=== PATIENT | male | born 1935 | race American Indian/Alaskan Native ===

== ENCOUNTER 2017-06-29 13:07 | Inpatient (IN) | payer MEDICARE ==
[2017-06-29 13:14] VITALS: BMI 24.3
[2017-06-29] MEDS ORDERED: Morphine 4 mg/ml ISec IVP STA (14:36)
--- NOTE | 2017-06-29 14:40 | ED PDOC ---
Arrival/HPI - General Chief Complaint: Back Pain Time Seen by Provider: 06/29/17 14:34 Historian: Patient, Spouse EM Caveat: Language Barrier, Other (right body pain) - History of Present Illness Narrative History of Present Illness (Text): 06/29/17 14:37 pt p/w + few days onset of atrumatic right sided body pain: right upper chest/ flank/right abd region pain; pt states he took aleve/tylenol with mild relief; pt states pain worsened today, pain has been waxing/waning over the last 3-4 days; no fever/sweats, no sob, no abd pain, no n/v, no numbness/tingling, no urinary/bowel changes, no fall/trauma/sick contact, no travel; pt denied rashes , pt denied other complaints; pt is here for further eval. PMD: Dr. 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 as per pt and , r eye cataract sx scheduled next month - Renal Hx Renal Disorder: No - Endocrine/Metabolic Hx Endocrine Disorders: No - Hematological/Oncological Hx Blood Transfusions: Yes Hx Blood Transfusion Reaction: No - Integumentary Hx Dermatological Disorder: No - Musculoskeletal/Rheumatological Hx Falls: Yes (past) - Gastrointestinal Hx Gastroesophageal Reflux: Yes - Genitourinary/Gynecological Hx Genitourinary Disorders: No - Psychiatric Hx Psychophysiologic Disorder: No Hx Substance Use: No - Anesthesia Hx Anesthesia Reactions: No Hx Malignant Hyperthermia: No Family/Social History - Physician Review Nursing Documentation Reviewed: Yes Family/Social History: Unknown Family HX Smoking Status: Never Smoked Hx Alcohol Use: No Hx Substance Use: No Allergies/Home Meds Allergies/Adverse Reactions: Allergies No Known Allergies Allergy (Unverified 11/26/12 01:02) Home Medications: Home Meds Medication Instructions Recorded Confirmed Brimonidine Tartrate 5 ml EACHEYE DAILY 02/04/16 02/04/16 Cyanocobalamin [Vitamin B12 1000 1 tab PO DAILY 02/04/16 02/08/16 mcg Tab] Dorzolamide HCl/Timolol Maleat 2 drop EACHEYE BID 02/04/16 02/04/16 [Dorzolamide Hydrochloride/Timolol Maleate 22] Enalapril Maleate [Vasotec] 1 tab PO DAILY 02/04/16 02/04/16 Esomeprazole Magnesium [Nexium] 40 mg PO DAILY 02/04/16 02/04/16 Ferrous Sulfate [Feosol] 1 tab PO DAILY 02/04/16 02/08/16 Folic Acid 1 mg PO DAILY 02/04/16 02/04/16 Latonoprost Opth Solution 1 drop EACHEYE HS 02/04/16 Valsartan/Hydrochlorothiazide 1 tab PO DAILY 02/04/16 02/04/16 [Valsartan-Hctz 160-12.5 mg Tab] amLODIPine [Norvasc] 1 tab PO DAILY 02/04/16 02/08/16 Review of Systems - Review of Systems Constitutional: Normal Eyes: Normal ENT: Normal Respiratory: Normal Cardiovascular: Chest Pain (right sided) Gastrointestinal: Abdominal Pain (right flank/sided) Genitourinary Male: Normal Musculoskeletal: Normal Skin: Normal Neurological: Normal Endocrine: Normal Hemo/Lymphatic: Normal Psychiatric: Normal Physical Exam Vital Signs Reviewed: Yes Vital Signs Temp Pulse Resp BP Pulse Ox 06/29/17 18:55 69 18 135/65 98 06/29/17 17:00 74 18 138/69 97 06/29/17 15:08 79 18 142/71 97 06/29/17 13:14 98.5 F 86 18 146/77 97 Temperature: Afebrile Blood Pressure: Normal Pulse: Regular Respiratory Rate: Normal Appearance: Positive for: Well-Appearing, Other (uncomfortable, resting in bed, alert/awake, GCS = 15, oriented x 3, mild distress due to pain) Pain Distress: Mild Mental Status: Positive for: Alert and Oriented X 3 - Systems Exam Head: Present: Atraumatic, Normocephalic Pupils: Present: PERRL Extroacular Muscles: Present: EOMI Conjunctiva: Present: Normal Ears: Present: Normal Mouth: Present: Moist Mucous Membranes Pharnyx: Present: Normal Nose (Internal): Present: Normal Inspection Neck: Present: Normal Range of Motion Respiratory/Chest: Present: Clear to Auscultation, Good Air Exchange. No: Respiratory Distress Cardiovascular: Present: Regular Rate and Rhythm, Normal S1, S2. No: Murmurs Abdomen: Present: Other (well nourished male, no focal tenderness, NO beebe's sign, no mcburney's point tenderness, no masses/rebound/guarding/rigidity, no obturator's sign) Back: Present: Normal Inspection Upper Extremity: Present: Normal Inspection, Normal ROM, NORMAL PULSES, Capillary Refill < 2s. No: Edema Lower Extremity: Present: Normal Inspection, NORMAL PULSES, Capillary Refill < 2 s. No: Edema, CALF TENDERNESS Neurological: Present: GCS=15, CN II-XII Intact, Speech Normal, Motor Func Grossly Intact Skin: Present: Warm, Normal Color Psychiatric: Present: Alert, Normal Concentration, Normal Affect, Normal Mood Medical Decision Making ED Course and Treatment: 06/29/17 14:42 right sided body pain x few days, no trauma A/P: right sided body pain - labs - iv - xray - ua - observe - supportive care 06/29/2017 16:46 Abdomen X-Ray IMPRESSION: No evidence of bowel obstruction. Mild retained feves predominantly in the right colon. No masses or abdnormal calcifications. Dictator: Romain Adams MD 06/29/2017 16:47 Chest X-ray IMPRESSION: Normal limited examinaton. Dictator: Romain Adams MD 06/29/17 20:03 pt currently felt slightly improved pt states he is comfortable pt is made aware of his medical results, i recommend patient for admission due to abnl lab results pt expressed understanding and agrees with admission paging Dr Saavedra, pt's PCP for admission 06/29/17 20:[address] Jc, made aware of pt's medical complaints, agrees with admission, would like Dr Johns for morning cards consult Reassessment Condition: Improving,but remains with symptoms - Lab Interpretations Lab Results: 06/29/17 16:40 Lab Results 06/29/17 16:40: Sodium 157 H*, Potassium 3.5 L, Chloride 116 H, Carbon Dioxide 30, Anion Gap 15, BUN 29 H, Creatinine 1.4, Est GFR ( Amer) 59, Est GFR ( Non-Af Amer) 49, Random Glucose 117 H, Calcium 8.9, Total Bilirubin 0.4, AST 40 , ALT 26, Alkaline Phosphatase 56, Troponin I < 0.01, Total Protein 6.4, Albumin 3.4, Globulin 3.0, Albumin/Globulin Ratio 1.1, Lipase 74 06/29/17 16:00: Urine Color Yellow, Urine Appearance Sl cloudy, Urine pH 8.5, Ur Specific [place] 1.010, Urine Protein 100 H, Urine Glucose (UA) Negative, Urine Ketones Negative, Urine Blood Negative, Urine Nitrate Negative, Urine Bilirubin Negative, Urine Urobilinogen 1.0 H, Ur Leukocyte Esterase Negative, Urine RBC Negative, Urine WBC 0 - 2, Ur Epithelial Cells None, Amorphous Sediment Few, Urine Bacteria Large, Urine Other Fiber I have reviewed the lab results: Yes (elevated NA) Interpretation: Abnormal lab values - RAD Interpretation Radiology Orders: 06/29/17 14:35 CHEST ONE VIEW [RAD] Stat ABDOMEN (FLAT PLATE) 1VIEW [RAD] Stat AXR FINDINGS: BOWEL: No bowel obstruction. Mild retained feces predominantly in the right colon. No masses or abnormal calcifications. BONES: Normal. OTHER FINDINGS: None. IMPRESSION: No evidence of bowel obstruction CXR: FINDINGS: LUNGS: Evaluation limited due to patient motion artifact. No infiltrate. PLEURA: No pneumothorax or pleural fluid seen. CARDIOVASCULAR: Normal. OSSEOUS STRUCTURES: No significant abnormalities. VISUALIZED UPPER ABDOMEN: Normal. OTHER FINDINGS: None. IMPRESSION: Normal limited examination. Professional Application Designer: Radiologist - EKG Interpretation EKG Interpretation (Text): 06/29/17 20:06 sinus rhythm at 85 bpm, normal axis, + pacs, diffuse low voltage, no st-t changes, ABNL EKG; unchanged compare with old ekg 01/201606/29/17 20:09 Interpreted by ED Physician: Yes Type: 12 lead EKG Comparison: Similar to previous EKG - Medication Orders Current Medication Orders: Aspirin (Aspirin Chewable) 81 mg PO STAT STA Stop: 06/29/17 20:39 Discontinued Medications Sodium Chloride (Sodium Chloride 0.9%) 500 mls @ 999 mls/hr IV .Q31M STA Stop: 06/29/17 20:34 Last Admin: 06/29/17 20:12 Dose: 999 mls/hr eMAR Start Stop Document 06/29/17 20:12 HI (Rec: 06/29/17 20:12 [id number]) Intravenous Solution Start Date 06/29/17 Start Time 20:12 Ketorolac Tromethamine (Toradol) 15 mg IVP STAT STA Stop: 06/29/17 14:37 Last Admin: 06/29/17 16:08 Dose: 15 mg MAR Pain Assessment Document 06/29/17 16:08 HI (Rec: 06/29/17 16:08 [id number]) Pain Reassessment Is this a pain reassessment? No Sleep Is patient sleeping during reassessment? No Presence of Pain Presence of Pain Yes IVP Administration Document 06/29/17 16:08 HI (Rec: 06/29/17 16:08 [id number]) Charges for Administration # of IVP Administrations 1 Morphine Sulfate (Morphine) 4 mg IVP STAT STA Stop: 06/29/17 14:37 Last Admin: 06/29/17 16:08 Dose: 4 mg MAR Pain Assessment Document 06/29/17 16:08 HI (Rec: 06/29/17 16:08 [place] [id number]) Pain Reassessment Is this a pain reassessment? No Sleep Is patient sleeping during reassessment? No Presence of Pain Presence of Pain Yes IVP Administration Document 06/29/17 16:08 HI (Rec: 06/29/17 16:08 [place] [id number]) Charges for Administration # of IVP Administrations 1 Disposition/Present on Arrival - Present on Arrival Any Indicators Present on Arrival: No History of DVT/PE: No History of Uncontrolled Diabetes: No Urinary Catheter: No History of Decub. Ulcer: No History Surgical Site Infection Following: None - Disposition Have Diagnosis and Disposition been Completed?: Yes Diagnosis: Right-sided chest pain, Acute hypernatremia, Right lateral abdominal pain Disposition: HOSPITALIZED Disposition Time: 20:09 Patient Plan: Admission, Observation Patient Problems: Current Active Problems Problem Status Onset Right-sided chest pain Acute Acute hypernatremia Acute Right lateral abdominal pain Acute Condition: FAIR Discharge Instructions (ExitCare): Chest Pain (ED) Referrals: Danielle Saavedra MD [Primary Care Provider] - Follow up with primary Forms: [employer] (Nepali)
[2017-06-29 16:17] LABS: PH,URINE 8.5 (4.7-8.0); URINE BILIRUBIN NEGATIVE (NEGATIVE); URINE BLOOD NEGATIVE (NEGATIVE); URINE GLUCOSE (UA) NEGATIVE (NEGATIVE); URINE LEUKOCYTE ESTERASE NEGATIVE Leu/uL (NEGATIVE); URINE NITRATE NEGATIVE (NEGATIVE); URINE PROTEIN 100 mg/dL (<30 mg/dL)
[2017-06-29 16:25] LABS: URINE APPEARANCE SL CLOUDY (CLEAR); URINE COLOR YELLOW (YELLOW)
[2017-06-29 16:27] LABS: URINE RBC NEGATIVE /hpf (0-2)
[2017-06-29 16:28] LABS: URINE AMORPHOUS SEDIMENT FEW; URINE BACTERIA LARGE (NEG); URINE WBC 0 - 2 /hpf (0-6)
--- NOTE | 2017-06-29 16:48 | RAD ---
PROCEDURE: CHEST RADIOGRAPH, 1 VIEW HISTORY: chest pain COMPARISON: None available. FINDINGS: LUNGS: Evaluation limited due to patient motion artifact. No infiltrate. PLEURA: No pneumothorax or pleural fluid seen. CARDIOVASCULAR: Normal. OSSEOUS STRUCTURES: No significant abnormalities. VISUALIZED UPPER ABDOMEN: Normal. OTHER FINDINGS: None. IMPRESSION: Normal limited examination.
--- NOTE | 2017-06-29 16:48 | RAD ---
HISTORY: right sided flank/diffuse abd intermittent pain COMPARISON: No prior. FINDINGS: BOWEL: No bowel obstruction. Mild retained feces predominantly in the right colon. No masses or abnormal calcifications. BONES: Normal. OTHER FINDINGS: None. IMPRESSION: No evidence of bowel obstruction
[2017-06-29 17:28] LABS: ALB/GLOB RATIO 1.1 (1.1-1.8); ALBUMIN 3.4 g/dL (3.0-4.8); ALT/SGPT 26 U/L (7-56); AST/SGOT 40 U/L (17-59); BLOOD UREA NITROGEN 29 mg/dL (7-21); CALCIUM 8.9 mg/dL (8.4-10.5); GFR AFRICAN-AMERICAN 59; GFR NON-AFRICAN AMERICAN 49; LIPASE 74 U/L (23-300)
[2017-06-29 17:41] LABS: TROPONIN I < 0.01 ng/mL
[2017-06-29] MEDS ORDERED: Sodium Chloride 0.9% 500 ML IV STA (20:04)
[2017-06-29 21:00] LABS: BASO % 1.1 % (0.0-3.0); EOS # 0.3 (0.0-0.7); GRAN # 6.24 (1.4-6.5); GRAN % 69.8 % (50.0-68.0); LYMPH # 1.7 (1.2-3.4); LYMPH % 18.8 % (22.0-35.0); MEAN CELL VOLUME 63.5 fl (80.0-105.0); MEAN CORPUSCULAR HGB CONC 23.7 g/dl (31.0-37.0); MONO # 0.7 (0.1-0.6); MONO % 7.3 % (1.0-6.0); RBC 2.66 10^6/uL (3.5-6.1); WHITE BLOOD COUNT 8.9 10^3/ul (4.5-11.0)
[2017-06-29 21:03] LABS: PLATELET COUNT 747 10^3/uL (120.0-450.0)
[2017-06-30] MEDS: Dorzolamide 2%/Timolol 0.5% 100 DROP/10 ML BOTTLE OD SCH ×4 (00:46→17:55)
[2017-06-30 01:08] LABS: HDL CHOLESTEROL 27 mg/dL (29-60)
[2017-06-30 01:10] LABS: IRON 11 ug/dL (45-180)
[2017-06-30 01:19] LABS: LDL CHOLESTEROL < 30 mg/dL (0-129)
[2017-06-30 01:20] LABS: TOTAL IRON BINDING CAPACITY 357 ug/dL (261-462)
[2017-06-30 01:39] LABS: % IRON SATURATION 3 % (20-55)
[2017-06-30 01:45] LABS: VENOUS BLOOD GAS BASE EXCESS 5.7 mmol/L (0.0-2.0); VENOUS BLOOD GAS PO2 66 mm/Hg (30-55); VENOUS BLOOD PH 7.39 (7.32-7.43)
--- NOTE | 2017-06-30 01:46 | CP.PCM.CON ---
<Harrison Rodríguez - Last Filed: 06/30/17 05:13> History of Present Illness - History of Present Illness History of Present Illness: Harrison Rodríguez DO PGY1 - ICU Consult Note CC: Consultation for symptomatic anemia HPI: 81 yo M with PMH of pernicious anemia, iron deficiency, internal hemorrhoids, PUD, and HTN presents to the ER complaining of right sided rib pain for the past three days. On admission, patient was noted to be severely anemic, with Hgb 4.0, with marked thrombocytosis, hypernatremia, hypokalemia. ICU consultation was requested with concerns for acute anemia 2/2 GIB. Patient reports black stools 2/2 iron supplementation, unchanged for the past few weeks. He denies BRBPR, hematochezia, hemoptysis, hematemesis, nausea, vomiting , diarrhea, constipation, abdominal pain (besides right sided rib pain), fever, or chills. Throughout encounter, patient repeatedly endorses hunger, requesting a diet. Remainder of 12 point ROS was negative. 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 as per pt and , r eye cataract sx scheduled next month - RENAL Hx Chronic Kidney Disease: No - ENDOCRINE/METABOLIC Hx Endocrine Disorders: No - HEMATOLOGICAL/ONCOLOGICAL Hx Blood Transfusions: Yes Hx Blood Transfusion Reaction: No - INTEGUMENTARY Hx Dermatological Problems: No - MUSCULOSKELETAL/RHEUMATOLOGICAL Hx Falls: Yes (past) - GASTROINTESTINAL Hx Gastroesophageal Reflux: Yes - GENITOURINARY/GYNECOLOGICAL Hx Genitourinary Disorders: No - PSYCHIATRIC Hx Psychophysiologic Disorder: No Hx Substance Use: No - SURGICAL HISTORY Hx Surgeries: No - ANESTHESIA Hx Anesthesia Reactions: No Hx Malignant Hyperthermia: No Meds Allergies/Adverse Reactions: Allergies Allergy/AdvReac Type Severity Reaction Status Date / Time No Known Allergies Allergy Unverified 11/26/12 01:02 - Medications Medications: Current Medications Amlodipine Besylate (Norvasc) 10 mg PO DAILY [facility] Cyanocobalamin (Vitamin B12 1000 Mcg Tab) 1,000 mcg PO DAILY [facility] Dorzolamide/Timolol (Cosopt 2%-0.5% Opht) 1 drop OD BID [facility] Last Admin: 06/30/17 00:46 Dose: 1 drop Ferrous Sulfate (Feosol) 324 mg PO DAILY [facility] Folic Acid (Folic Acid) 1 mg PO DAILY [facility] Hydrochlorothiazide (Microzide) 12.5 mg PO DAILY [facility] Latanoprost (Xalatan Opht) 0 ml OU HS [facility] Losartan Potassium (Cozaar) 100 mg PO DAILY [facility] Non-Formulary Medication (Brimonidine Tartrate [Brimonidine Tartrate]) 5 ml EACHEYE DAILY [facility] Pantoprazole Sodium (Protonix Ec Tab) 40 mg PO 0600 [facility] Physical Exam - Constitutional Appears: Non-toxic, In Acute Distress (mild), Chronically Ill - Head Exam Head Exam: ATRAUMATIC, NORMOCEPHALIC - Eye Exam Eye Exam: EOMI, Normal appearance, PERRL Additional comments: Conjunctival pallor - ENT Exam ENT Exam: Mucous Membranes Moist - Neck Exam Neck exam: Positive for: Normal Inspection - Respiratory Exam Respiratory Exam: Clear to Auscultation Bilateral, NORMAL BREATHING PATTERN - Cardiovascular Exam Cardiovascular Exam: RRR, +S1, +S2. absent: Tachycardia - GI/Abdominal Exam GI & Abdominal Exam: Normal Bowel Sounds, Soft. absent: Distended, Firm, Guarding, Organomegaly, Rebound, Rigid, Tenderness - Extremities Exam Extremities exam: Negative for: calf tenderness, pedal edema - Neurological Exam Neurological exam: Alert, CN II-XII Intact, Oriented x3 - Psychiatric Exam Psychiatric exam: Agitated, Normal Affect, Normal Mood - Skin Skin Exam: Dry, Intact, Normal Color Results - Vital Signs Recent Vital Signs: Last Vital Signs Temp 98.5 F 06/29/17 13:14 Pulse 85 06/30/17 00:56 Resp 19 06/30/17 00:56 BP 141/67 06/30/17 00:56 Pulse Ox 96 06/30/17 00:56 - Labs Result Diagrams: 06/29/17 20:50 06/29/17 16:40 Labs: Laboratory Results - last 24 hr 06/29/17 06/30/17 06/30/17 21:45 00:59 00:59 Iron 11 L Triglycerides 101 HDL Cholesterol 27 L Blood Type A POSITIVE Antibody Screen Negative Crossmatch See Detail BBK History Checked Patient has bt Assessment & Plan - Assessment and Plan (Free Text) Assessment: 81 yo M with PMH of pernicious anemia, iron deficiency, internal hemorrhoids, PUD, and HTN presents to the ER complaining of right sided rib pain for the past three days. Labs on admission show marked anemia, thrombocytosis, hypernatremia, hypokalemia. Patient declined ABG. VBG shows mild elevation in blood lactate. Anemia most likely chronic in nature, considering relative lack of symptoms, medical history, and current labs. Patient is hemodynamically stable, with no signs of active bleeding. Patient does not meet criteria for ICU admission. Recommend admission to telemetry. Agree with blood transfusion and GI evaluation. Recommend serial H&H, repeat CMP after resuscitation, and Iron, B12 , and folate supplementation. Patient seen, discussed, and reviewed with attending <William Mckeon Q - Last Filed: 06/30/17 06:12> Meds - Medications Medications: Current Medications Amlodipine Besylate (Norvasc) 10 mg PO DAILY [facility] Cyanocobalamin (Vitamin B12 1000 Mcg Tab) 1,000 mcg PO DAILY [facility] Dorzolamide/Timolol (Cosopt 2%-0.5% Opht) 1 drop OD BID [facility] Last Admin: 06/30/17 02:18 Dose: Not Given Ferrous Sulfate (Feosol) 324 mg PO DAILY [facility] Folic Acid (Folic Acid) 1 mg PO DAILY [facility] Hydrochlorothiazide (Microzide) 12.5 mg PO DAILY [facility] Latanoprost (Xalatan Opht) 0 ml OU HS [facility] Losartan Potassium (Cozaar) 100 mg PO DAILY [facility] Non-Formulary Medication (Brimonidine Tartrate [Brimonidine Tartrate]) 5 ml EACHEYE DAILY [facility] Pantoprazole Sodium (Protonix Ec Tab) 40 mg PO 0600 [facility] Last Admin: 06/30/17 05:19 Dose: 40 mg Results - Vital Signs Recent Vital Signs: Last Vital Signs Temp 98.4 F 06/30/17 06:05 Pulse 70 06/30/17 06:05 Resp 18 06/30/17 06:05 BP 132/72 06/30/17 06:05 Pulse Ox 98 06/30/17 05:26 - Labs Result Diagrams: 06/29/17 20:50 06/29/17 16:40 Labs: Laboratory Results - last 24 hr 06/29/17 06/30/17 06/30/17 21:45 00:59 00:59 pO2 66 H VBG pH 7.39 VBG pCO2 53.0 VBG HCO3 32.1 H VBG Total CO2 33.7 H VBG O2 Sat (Calc) 95.7 H VBG Base Excess 5.7 H VBG Potassium 3.2 L Sodium 158.0 H Chloride 122.0 H Glucose 117 H Lactate 2.4 H FiO2 21.0 Iron TIBC % Saturation Triglycerides 101 Cholesterol 59 L LDL Cholesterol Direct < 30 HDL Cholesterol 27 L Venous Blood Potassium 3.2 L Blood Type A POSITIVE Antibody Screen Negative Crossmatch See Detail BBK History Checked Patient has bt 06/30/17 00:59 pO2 VBG pH VBG pCO2 VBG HCO3 VBG Total CO2 VBG O2 Sat (Calc) VBG Base Excess VBG Potassium Sodium Chloride Glucose Lactate FiO2 Iron 11 L TIBC 357 % Saturation 3 L Triglycerides Cholesterol LDL Cholesterol Direct HDL Cholesterol Venous Blood Potassium Blood Type Antibody Screen Crossmatch BBK History Checked Attending/Attestation - Attestation I have personally seen and examined this patient.: Yes I have fully participated in the care of the patient.: Yes I have reviewed all pertinent clinical information: Yes Notes (Text): 06/30/17 06:08 I agree with the above mentioned note and exam by the resident with the addition of the followin81 y/o Hatian creole speaking male with a PMHx as described above presented to the ED due to ongoing right sided mid-axillary/abdominal pain. He denied any complaints of shortness of breath, chest discomfort, palpitations, syncope or near syncope. Patient has been admitted to the hospital two times previously in the last 2 years showing very low hgb levels (6.5 and 4.0 on separate occasions). He has had an endoscopy showing gastric ulcers without bleeding and a colonoscopy which showed internal hemorrhoids and a polyp that was biopsied and found to be a tubular adenoma. Patient also has tested positive for intrinsic factor antibody indicating a history of pernicious anemia. He may be admitted to the telemetry floor and does not require aggressive resuscitation or ICU level monitoring at this time. Case discussed with Dr. Anderson in the ED
[2017-06-30] MEDS: Pantoprazole 40 mg EC Tab PO SCH (05:19)
[2017-06-30] MEDS ORDERED: BRIMONIDINE TARTRATE EACHEYE SCH (10:00)
--- NOTE | 2017-06-30 10:24 | CARD ---
APPROVED REPORT EKG Measurement Heart [id number] ME [id number] <Conclusion> Sinus rhythm with short ME with occasional premature ventricular complexes Nonspecific ST abnormality Abnormal ECG
--- NOTE | 2017-06-30 10:44 | CP.PCM.HP ---
<Josephine Julian - Last Filed: 06/30/17 10:37> History of Present Illness - History of Present Illness History of Present Illness: 81 yr male w/ history of Pernicious anemia, iron deficiency, internal hemorrhoids, PUD, HTN, cataracts, glaucoma, and Legally blind presents to the ED with his after R sided chest pain and R sided abd/flank pain. He reported the pain was waxing/waning over the last 3-4 days. He states that " this time last year, I was here [at [facility]] getting blood." Pt has periods of altered mental status and speech that is indiscernible due to language barrier, his first language is Creole. He denies any SOB, N/V, diarrhea, constipation, fever, chills, urinary changes or distress. Present on Admission - Present on Admission Any Indicators Present on Admission: No History of DVT/PE: No History of Uncontrolled Diabetes: No Urinary Catheter: No Decubitus Ulcer Present: No Review of Systems - Review of Systems Systems not reviewed;Unavailable: Altered Mental Status, Language Barrier - Constitutional Constitutional: As Per HPI - EENT Eyes: As Per HPI - Cardiovascular Cardiovascular: As Per HPI - Respiratory Respiratory: As Per HPI - Gastrointestinal Gastrointestinal: As Per HPI - Genitourinary Genitourinary: As Per HPI - Musculoskeletal Musculoskeletal: As Per HPI - Integumentary Integumentary: As Per HPI - Neurological Neurological: As Per HPI - Psychiatric Psychiatric: As Per HPI - Endocrine Endocrine: As Per HPI - Hematologic/Lymphatic Hematologic: As Per HPI 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 cataracts as per pt and , r eye cataract sx scheduled next month - RENAL Hx Chronic Kidney Disease: No - ENDOCRINE/METABOLIC Hx Endocrine Disorders: No - HEMATOLOGICAL/ONCOLOGICAL Hx Blood Transfusions: Yes Hx Blood Transfusion Reaction: No - INTEGUMENTARY Hx Dermatological Problems: No - MUSCULOSKELETAL/RHEUMATOLOGICAL Hx Falls: Yes (past) - GASTROINTESTINAL Hx Gastroesophageal Reflux: Yes Hx Hemorrhoids: Yes (INTERNAL HEMORRHOIDS) Hx Ulcer: Yes (PUD) - GENITOURINARY/GYNECOLOGICAL Hx Genitourinary Disorders: No - PSYCHIATRIC Hx Psychophysiologic Disorder: No Hx Substance Use: No - SURGICAL HISTORY Hx Surgeries: No - ANESTHESIA Hx Anesthesia Reactions: No Hx Malignant Hyperthermia: No Meds Allergies/Adverse Reactions: Allergies Allergy/AdvReac Type Severity Reaction Status Date / Time No Known Allergies Allergy Unverified 11/26/12 01:02 Physical Exam - Constitutional Appears: No Acute Distress - Head Exam Head Exam: ATRAUMATIC, NORMAL INSPECTION, NORMOCEPHALIC - Eye Exam Eye Exam: EOMI, Normal appearance, PERRL - ENT Exam ENT Exam: Mucous Membranes Dry - Neck Exam Neck exam: Positive for: Normal Inspection - Respiratory Exam Respiratory Exam: Clear to Auscultation Bilateral, NORMAL BREATHING PATTERN - Cardiovascular Exam Cardiovascular Exam: REGULAR RHYTHM, +S1, +S2 - GI/Abdominal Exam GI & Abdominal Exam: Normal Bowel Sounds, Soft. absent: Tenderness - Back Exam Back exam: NORMAL INSPECTION - Neurological Exam Neurological exam: Alert, Altered - Psychiatric Exam Psychiatric exam: Normal Affect, Normal Mood - Skin Skin Exam: Dry, Intact, Normal Color, Warm Results - Vital Signs Recent Vital Signs: Last Vital Signs Temp 98.8 F 06/30/17 09:35 Pulse 94 H 06/30/17 09:35 Resp 18 06/30/17 09:35 BP 160/71 H 06/30/17 09:35 Pulse Ox 98 06/30/17 05:26 - Labs Result Diagrams: 06/29/17 20:50 06/29/17 16:40 Labs: Laboratory Results - last 24 hr 06/29/17 06/30/17 06/30/17 21:45 00:59 00:59 pO2 66 H VBG pH 7.39 VBG pCO2 53.0 VBG HCO3 32.1 H VBG Total CO2 33.7 H VBG O2 Sat (Calc) 95.7 H VBG Base Excess 5.7 H VBG Potassium 3.2 L Sodium 158.0 H Chloride 122.0 H Glucose 117 H Lactate 2.4 H FiO2 21.0 Iron TIBC % Saturation Triglycerides 101 Cholesterol 59 L LDL Cholesterol Direct < 30 HDL Cholesterol 27 L Venous Blood Potassium 3.2 L Blood Type A POSITIVE Antibody Screen Negative Crossmatch See Detail BBK History Checked Patient has bt 06/30/17 00:59 pO2 VBG pH VBG pCO2 VBG HCO3 VBG Total CO2 VBG O2 Sat (Calc) VBG Base Excess VBG Potassium Sodium Chloride Glucose Lactate FiO2 Iron 11 L TIBC 357 % Saturation 3 L Triglycerides Cholesterol LDL Cholesterol Direct HDL Cholesterol Venous Blood Potassium Blood Type Antibody Screen Crossmatch BBK History Checked - Impressions Impression: ADMIT TO TELEMETRY Assessment & Plan (1) Severe anemia Status: Acute (2) Hypokalemia Status: Acute (3) Dehydration Status: Acute (4) Microalbuminuria Status: Acute (5) Hyperglycemia Status: Acute (6) Thrombocytosis Status: Acute (7) Acute hypernatremia Status: Acute (8) Right lateral abdominal pain Status: Acute (9) Right-sided chest pain Status: Acute (10) HTN (hypertension) Status: Chronic - Assessment and Plan (Free Text) Plan: Patient in Telemetry receiving blood transfusion. 1:1 sitter present. GI prophlyaxis, VTE prophlyaxis, Falls precautions, Bleeding precautions. Consulted: GI = Dr. Jacobo Cardio = Dr. Johns Psych = Dr. Mccormack Reviewed: Abd XRay = (-) NEG bowel obstruction. Mild retained feces predominantly in the right colon. No masses or abnormal calcifications CXR = (-) WNL ECG = (+) NSR, PAC, diffuse low voltage, no st-t changes, ABNL; unchanged compared with old ekg 01/2016 - Date & Time Date: 06/30/17 Time: 10:00 Decision To Admit - Pt Status Changed To: Hospital Disposition Of: Inpatient Admission - Admit Certification Admit to Inpatient:: After my assessment, the patient will require hospitalization for at least two midnights. This is because of the severity of symptoms shown, intensity of services needed, and/or the medical risk in this patient being treated as an outpatient. - . Bed Request Type: Telemetry <Danielle Saavedra - Last Filed: 06/30/17 14:16> Results - Vital Signs Recent Vital Signs: Last Vital Signs Temp 98.8 F 06/30/17 09:35 Pulse 94 H 06/30/17 09:35 Resp 18 06/30/17 09:35 BP 140/71 06/30/17 13:03 Pulse Ox 98 06/30/17 05:26 - Labs Result Diagrams: 06/29/17 20:50 06/29/17 16:40 Labs: Laboratory Results - last 24 hr 06/29/17 06/30/17 06/30/17 21:45 00:59 00:59 pO2 66 H VBG pH 7.39 VBG pCO2 53.0 VBG HCO3 32.1 H VBG Total CO2 33.7 H VBG O2 Sat (Calc) 95.7 H VBG Base Excess 5.7 H VBG Potassium 3.2 L Sodium 158.0 H Chloride 122.0 H Glucose 117 H Lactate 2.4 H FiO2 21.0 Hemoglobin A1c Iron TIBC % Saturation Triglycerides 101 Cholesterol 59 L LDL Cholesterol Direct < 30 HDL Cholesterol 27 L Venous Blood Potassium 3.2 L Blood Type A POSITIVE Antibody Screen Negative Crossmatch See Detail BBK History Checked Patient has bt 06/30/17 06/30/17 06/30/17 00:59 00:59 11:30 pO2 41 VBG pH 7.39 VBG pCO2 48.0 VBG HCO3 29.1 H VBG Total CO2 30.6 H VBG O2 Sat (Calc) 78.1 H VBG Base Excess 3.3 H VBG Potassium 3.6 Sodium 157.0 H Chloride 123.0 H Glucose 103 Lactate 2.2 H FiO2 21.0 Hemoglobin A1c 5.8 Iron 11 L TIBC 357 % Saturation 3 L Triglycerides Cholesterol LDL Cholesterol Direct HDL Cholesterol Venous Blood Potassium 3.6 Blood Type Antibody Screen Crossmatch BBK History Checked Assessment & Plan - Assessment and Plan (Free Text) Plan: i know this pt very well , very non compliant, h/o anemia , ab. colonoscopy , never f/u on that , even d/d with pt and family , now came with severe symptomatic anemia , admitted , gave prbc . gi , demetrioult , agreed all above . will f/u with h/h . planed to send pt to the unit , but intensives refused , we will cont , present treatment , chart . labs and meds noted
[2017-06-30 11:38] LABS: VENOUS BLOOD GAS BASE EXCESS 3.3 mmol/L (0.0-2.0); VENOUS BLOOD GAS PO2 41 mm/Hg (30-55); VENOUS BLOOD PH 7.39 (7.32-7.43)
--- NOTE | 2017-06-30 12:31 | CP.PCM.CON ---
<Simona Aj - Last Filed: 06/30/17 14:14> History of Present Illness - History of Present Illness History of Present Illness: Seen and examined at the bedside earlier today, the chart reviewed. Request for GI consult is for severe anemia. HPI: This is an 81-year-old male with a past medical history of iron deficiency anemia, peptic ulcer disease, hypertension, cataract, cough,, legally blind came to the emergency room with complaints of right upper quadrant/flank pain. The patient on admission was found to have a hemoglobin of 4.0. Currently receiving second unit of packed RBC. The patient denies any hematemesis, shortness of breath, did have some right-sided chest pain. Patient denies melena or bright red blood per rectum patient is found to have dark stools. Patient endorses that he is on iron supplements. The patient had an abdominal x -ray which was negative for bowel obstruction. His last endoscopy was 02/05/16, found to have erosions in the gastric antrum and stigmata of blood noted, found to have healed ulcer. The patient did have initial endoscopy on July/2015 found to have multiple ulcers. Last colonoscopy was 02/2016 found to have rectal polyp, diverticulosis and internal hemorrhoids. A review of medication the patient is on Nexium 40 mg. The patient currently denies abdominal discomfort reports that this has improved. Denies use of NSAIDs, dyspepsia. Past medical history: Hypertension, cataracts, glaucoma, legally blind, iron deficiency anemia, internal hemorrhoids, colon polyps, peptic ulcer disease, diverticulosis Surgical history: Denies Family history: Noncontributory this time Allergies: No known drug allergies Medications: Reviewed as per MAR Social history: Denies EtOH, tobacco use or drugs ROS: Systems reviewed with positive findings see HPI. 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 cataracts as per pt and , r eye cataract sx scheduled next month - RENAL Hx Chronic Kidney Disease: No - ENDOCRINE/METABOLIC Hx Endocrine Disorders: No - HEMATOLOGICAL/ONCOLOGICAL Hx Blood Transfusions: Yes Hx Blood Transfusion Reaction: No - INTEGUMENTARY Hx Dermatological Problems: No - MUSCULOSKELETAL/RHEUMATOLOGICAL Hx Falls: Yes (past) - GASTROINTESTINAL Hx Gastroesophageal Reflux: Yes Hx Hemorrhoids: Yes (INTERNAL HEMORRHOIDS) Hx Ulcer: Yes (PUD) - GENITOURINARY/GYNECOLOGICAL Hx Genitourinary Disorders: No - PSYCHIATRIC Hx Psychophysiologic Disorder: No Hx Substance Use: No - SURGICAL HISTORY Hx Surgeries: No - ANESTHESIA Hx Anesthesia Reactions: No Hx Malignant Hyperthermia: No Meds Allergies/Adverse Reactions: Allergies Allergy/AdvReac Type Severity Reaction Status Date / Time No Known Allergies Allergy Unverified 11/26/12 01:02 - Medications Medications: Current Medications Amlodipine Besylate (Norvasc) 10 mg PO DAILY [facility] Cyanocobalamin (Vitamin B12 1000 Mcg Tab) 1,000 mcg PO DAILY [facility] Dorzolamide/Timolol (Cosopt 2%-0.5% Opht) 1 drop OD BID [facility] Last Admin: 06/30/17 02:18 Dose: Not Given Ferrous Sulfate (Feosol) 324 mg PO DAILY [facility] Folic Acid (Folic Acid) 1 mg PO DAILY [facility] Hydrochlorothiazide (Microzide) 12.5 mg PO DAILY [facility] Latanoprost (Xalatan Opht) 0 ml OU HS [facility] Losartan Potassium (Cozaar) 100 mg PO DAILY [facility] Non-Formulary Medication (Brimonidine Tartrate [Brimonidine Tartrate]) 5 ml EACHEYE DAILY [facility] Pantoprazole Sodium (Protonix Ec Tab) 40 mg PO 0600 [facility] Last Admin: 06/30/17 05:19 Dose: 40 mg Physical Exam - Constitutional Appears: No Acute Distress - Head Exam Head Exam: NORMOCEPHALIC - Eye Exam Eye Exam: Normal appearance. absent: Scleral icterus - ENT Exam ENT Exam: Mucous Membranes Moist - Respiratory Exam Respiratory Exam: NORMAL BREATHING PATTERN. absent: Respiratory Distress - Cardiovascular Exam Cardiovascular Exam: +S1, +S2 - GI/Abdominal Exam GI & Abdominal Exam: Normal Bowel Sounds, Soft, Tenderness (mild upper right- sided tenderness). absent: Distended, Guarding, Organomegaly, Rebound - Extremities Exam Extremities exam: Positive for: pedal pulses present. Negative for: calf tenderness, pedal edema - Neurological Exam Neurological exam: Alert, Oriented x3 - Skin Skin Exam: Dry, Warm Results - Vital Signs Recent Vital Signs: Last Vital Signs Temp 98.8 F 06/30/17 09:35 Pulse 94 H 06/30/17 09:35 Resp 18 06/30/17 09:35 BP 160/71 H 06/30/17 09:35 Pulse Ox 98 06/30/17 05:26 - Labs Result Diagrams: 06/29/17 20:50 06/29/17 16:40 Labs: Laboratory Results - last 24 hr 06/29/17 06/30/17 06/30/17 21:45 00:59 00:59 pO2 66 H VBG pH 7.39 VBG pCO2 53.0 VBG HCO3 32.1 H VBG Total CO2 33.7 H VBG O2 Sat (Calc) 95.7 H VBG Base Excess 5.7 H VBG Potassium 3.2 L Sodium 158.0 H Chloride 122.0 H Glucose 117 H Lactate 2.4 H FiO2 21.0 Iron TIBC % Saturation Triglycerides 101 Cholesterol 59 L LDL Cholesterol Direct < 30 HDL Cholesterol 27 L Venous Blood Potassium 3.2 L Blood Type A POSITIVE Antibody Screen Negative Crossmatch See Detail BBK History Checked Patient has bt 06/30/17 06/30/17 00:59 11:30 pO2 41 VBG pH 7.39 VBG pCO2 48.0 VBG HCO3 29.1 H VBG Total CO2 30.6 H VBG O2 Sat (Calc) 78.1 H VBG Base Excess 3.3 H VBG Potassium 3.6 Sodium 157.0 H Chloride 123.0 H Glucose 103 Lactate 2.2 H FiO2 21.0 Iron 11 L TIBC 357 % Saturation 3 L Triglycerides Cholesterol LDL Cholesterol Direct HDL Cholesterol Venous Blood Potassium 3.6 Blood Type Antibody Screen Crossmatch BBK History Checked Assessment & Plan - Assessment and Plan (Free Text) Assessment: Assessment: Severe anemia, rule out peptic ulcer disease, angiodysplasia Right-sided upper/chest pain History of peptic ulcer disease Iron deficiency anemia Cataract/Glaucoma/legally blind Hypertension History of colon polyp Diverticulosis Hypernatremia Plan: monitor H&H and for overt GI bleed Recheck CBC post transfusion Continue PPI change diet to clear liquid ct scan of abdomen and pelvis with oral contrast On B12 and iron supplements, B12 and folate pending Pending echo as per cardiology Consider endoscopic evaluation when optimal, will follow closely Thank you for this consult and for allowing us to participate in your patient's care, further recommendations based upon clinical course. Seen and discussed with Dr. Jacobo. <Cl Jacobo V - Last Filed: 07/05/17 13:33> Meds - Medications Medications: Current Medications Amlodipine Besylate (Norvasc) 10 mg PO DAILY [facility] Last Admin: 06/30/17 13:03 Dose: 10 mg Aspirin (Aspirin) 325 mg PO DAILY [facility] Last Admin: 06/30/17 17:49 Dose: 325 mg Cyanocobalamin (Vitamin B12 1000 Mcg Tab) 1,000 mcg PO DAILY [facility] Last Admin: 06/30/17 13:02 Dose: 1,000 mcg Dorzolamide/Timolol (Cosopt 2%-0.5% Opht) 1 drop OD BID [facility] Last Admin: 06/30/17 17:55 Dose: 1 drop Ferrous Sulfate (Feosol) 324 mg PO DAILY [facility] Last Admin: 06/30/17 13:02 Dose: 324 mg Folic Acid (Folic Acid) 1 mg PO DAILY [facility] Last Admin: 06/30/17 13:02 Dose: 1 mg Hydrochlorothiazide (Microzide) 12.5 mg PO DAILY [facility] Last Admin: 06/30/17 13:02 Dose: 12.5 mg Dextrose/Sodium Chloride (Dextrose 5%/0.9% Ns 1000 Ml) 1,000 mls @ 80 mls/hr IV .[id number] [facility] Last Admin: 06/30/17 20:22 Dose: 80 mls/hr Latanoprost (Xalatan Opht) 0 ml OU HS [facility] Last Admin: 06/30/17 22:22 Dose: 2.5 ml Losartan Potassium (Cozaar) 100 mg PO DAILY [facility] Last Admin: 06/30/17 13:02 Dose: 100 mg Non-Formulary Medication (Brimonidine Tartrate [Brimonidine Tartrate]) 5 ml EACHEYE DAILY [facility] Pantoprazole Sodium (Protonix Ec Tab) 40 mg PO 0600 [facility] Last Admin: 06/30/17 05:19 Dose: 40 mg Results - Vital Signs Recent Vital Signs: Last Vital Signs Temp 98.8 F 06/30/17 09:35 Pulse 81 06/30/17 18:00 Resp 18 06/30/17 09:35 BP 140/71 06/30/17 13:03 Pulse Ox 98 06/30/17 05:26 - Labs Result Diagrams: 07/04/17 07:00 07/04/17 07:00 Labs: Laboratory Results - last 24 hr 06/29/17 06/30/17 06/30/17 21:45 00:59 00:59 pO2 66 H VBG pH 7.39 VBG pCO2 53.0 VBG HCO3 32.1 H VBG Total CO2 33.7 H VBG O2 Sat (Calc) 95.7 H VBG Base Excess 5.7 H VBG Potassium 3.2 L Sodium 158.0 H Chloride 122.0 H Glucose 117 H Lactate 2.4 H FiO2 21.0 Potassium Carbon Dioxide Anion Gap BUN Creatinine Est GFR ( Amer) Est GFR (Non-Af Amer) Random Glucose Hemoglobin A1c Calcium Iron TIBC % Saturation Triglycerides 101 Cholesterol 59 L LDL Cholesterol Direct < 30 HDL Cholesterol 27 L Vitamin B12 677 Folate 8.8 Venous Blood Potassium 3.2 L Blood Type A POSITIVE Antibody Screen Negative Crossmatch See Detail BBK History Checked Patient has bt 06/30/17 06/30/17 06/30/17 00:59 00:59 11:30 pO2 41 VBG pH 7.39 VBG pCO2 48.0 VBG HCO3 29.1 H VBG Total CO2 30.6 H VBG O2 Sat (Calc) 78.1 H VBG Base Excess 3.3 H VBG Potassium 3.6 Sodium 157.0 H Chloride 123.0 H Glucose 103 Lactate 2.2 H FiO2 21.0 Potassium Carbon Dioxide Anion Gap BUN Creatinine Est GFR ( Amer) Est GFR (Non-Af Amer) Random Glucose Hemoglobin A1c 5.8 Calcium Iron 11 L TIBC 357 % Saturation 3 L Triglycerides Cholesterol LDL Cholesterol Direct HDL Cholesterol Vitamin B12 Folate Venous Blood Potassium 3.6 Blood Type Antibody Screen Crossmatch BBK History Checked 06/30/17 14:45 pO2 VBG pH VBG pCO2 VBG HCO3 VBG Total CO2 VBG O2 Sat (Calc) VBG Base Excess VBG Potassium Sodium 156 H* Chloride 119 H Glucose Lactate FiO2 Potassium 3.7 Carbon Dioxide 25 Anion Gap 15 BUN 26 H Creatinine 1.3 Est GFR ( Amer) > 60 Est GFR (Non-Af Amer) 53 Random Glucose 108 Hemoglobin A1c Calcium 9.2 Iron TIBC % Saturation Triglycerides Cholesterol LDL Cholesterol Direct HDL Cholesterol Vitamin B12 Folate Venous Blood Potassium Blood Type Antibody Screen Crossmatch BBK History Checked Attending/Attestation - Attestation I have personally seen and examined this patient.: Yes I have fully participated in the care of the patient.: Yes I have reviewed all pertinent clinical information: Yes Notes (Text): This is an addendum to GI consult report dictated by Simona Aj APN.The patient was seen and examined earlier. Medical records, lab studies, imagings were reviewed. Last 24 hours events reviewed. Agreed with the above treatment plan as outlined in Simona Aj APN's notes the with the addition of the following I did speak with patient's patient's granddaughter, and also patient's daughter was in [place]. Last time we saw the patient in the hospital was more than a year ago. Multiple efforts were made to reach up to the family. The primary physician was also informed the patient and his family the diagnosis of rectal polypoid lesion which requires surgical intervention. Patient did not follow up on that. History of ulcer disease In the past. Patient had esophageal ulcers and gastric ulcers. Repeat endoscopy showed healed ulcers and gastric erosions.patient is admitted with a severe anemia with a hemoglobin of 4.5. Denies any bright red blood per rectum or melena 06/30/17 23:19 07/05/17 13:32
[2017-06-30] MEDS ORDERED: Barium Sulfate Susp 2.1% w/v, 2.0% w/w 450 mL Bottle PO ONE (14:12)
[2017-06-30 15:41] LABS: FOLATE 8.8 ng/mL
[2017-06-30 16:04] LABS: BLOOD UREA NITROGEN 26 mg/dL (7-21); CALCIUM 9.2 mg/dL (8.4-10.5); GFR AFRICAN-AMERICAN > 60; GFR NON-AFRICAN AMERICAN 53
--- NOTE | 2017-06-30 16:40 | US ---
PROCEDURE: Bilateral carotid artery duplex ultrasound HISTORY: Carotid stenosis TIA PHYSICIAN(S): Romain Qureshi MD. TECHNIQUE: Duplex sonography and color-flow Doppler were used to evaluate the carotid bifurcations and limited segments of the vertebral arteries bilaterally. FINDINGS: There is mild smooth heterogeneous plaque noted at the carotid bifurcations bilaterally. The peak systolic velocity in the proximal right internal carotid artery is 74 cm/sec. This corresponds to a 20 to 39% proximal right ICA stenosis. Normal systolic velocities are noted in the proximal right external carotid artery. There is antegrade flow in the right vertebral artery. The peak systolic velocity in the proximal left internal carotid artery is 102 cm/sec. This corresponds to a 20 to 39% proximal left ICA stenosis. Normal systolic velocities are noted in the proximal left external carotid artery. There is antegrade flow in the left vertebral artery. IMPRESSION: 1. Bilateral 20-39% proximal ICA stenoses. 2. Antegrade flow in both vertebral arteries.
--- NOTE | 2017-06-30 19:07 | CARD ---
APPROVED REPORT EXAM: Two-dimensional and M-mode echocardiogram with Doppler and color Doppler. INDICATION Chest Pain 2D DIMENSIONS Left Atrium (2D)4.2 (1.6-4.0cm)IVSd1.1 (0.7-1.1cm) LVDd5.0 (3.9-5.9cm)PWd1.2 (0.7-1.1cm) LVDs3.5 (2.5-4.0cm)FS (%) 30.0 % LVEF (%)56.7 (>50%) M-Mode DIMENSIONS Aortic Root3.50 (2.2-3.7cm)Aortic Cusp Exc.1.60 (1.5-2.0cm) Aortic Valve AoV Peak Qvoxomsa671.0cm/[place] Peak GR.12mmHg Mitral Valve MV E Vdszkhvd38.5cm/sMV A Daeuuski148.0cm/sE/A ratio0.7 TDI Lateral E' Peak V10.00cm/sMedial E' Peak V8.87cm/sE/Lateral E'7.7 E/Medial E'8.6 Pulmonary Valve PV Peak Xxssihvd33.0cm/sPV Peak Grad.2mmHg Tricuspid Valve TR Peak [id number]/sRAP [id number] Peak Gr.78mmHg [id number] LEFT VENTRICLE The left ventricle is normal size. There is borderline to mild concentric left ventricular hypertrophy. The left ventricular function is normal.EF-55-60% There is normal LV segmental wall motion. Transmitral Doppler flow pattern is Grade III-reversible restrictive diastolic dysfunction. No left ventricle thrombus noted on this study. There is no ventricular septal defect visualized. There is no left ventricular aneurysm. There is no mass noted in the left ventricle. RIGHT VENTRICLE The right ventricle is mildly to moderately dilated. The right ventricle is mildly to moderately hypertrophied. Systolic function of RV is mildly to moderately reduced. ATRIA The left atrium is mildly dilated. The right atrium is moderately dilated. The interatrial septum is intact with no evidence for an atrial septal defect. AORTIC VALVE The aortic valve is calcified but opens well. The aortic valve is mildly to moderately sclerotic. There is trace aortic regurgitation. There is no aortic valvular stenosis. There is no aortic valvular vegetation. MITRAL VALVE The mitral valve is thickened but opens well. Mitral regurgitation is mild to moderate. There is no mitral valve stenosis. There is no evidence of mitral valve prolapse. TRICUSPID VALVE The tricuspid valve leaflets are thickened , but open well. There is severe tricuspid regurgitation.RVSP-88 mmof hg. There is severe pulmonary hypertension. There is no tricuspid valve stenosis. There is no tricuspid valve prolapse or vegetation. PULMONIC VALVE The pulmonary valve is normal in structure. There is mild pulmonic valvular regurgitation. There is no pulmonic valvular stenosis. GREAT VESSELS The aortic root is normal in size. The ascending aorta is normal in size. The pulmonary artery is normal. The IVC is dilated. PERICARDIAL EFFUSION There is no pleural effusion. There is no pericardial effusion. <Conclusion> The left ventricle is normal size. There is borderline to mild concentric left ventricular hypertrophy. The left ventricular function is normal.EF-55-60% The right ventricle is mildly to moderately dilated. Systolic function of RV is mildly to moderately reduced. There is trace aortic regurgitation. There is no aortic valvular stenosis. Mitral regurgitation is mild to moderate. There is severe tricuspid regurgitation.RVSP-88 mmof hg. There is severe pulmonary hypertension. The IVC is dilated. There is no pericardial effusion.
--- NOTE | 2017-06-30 19:45 | CON ---
DATE: 06/30/2017 REASON FOR CONSULTATION: Cardiac evaluation, shortness of breath, severe anemia, symptomatic. BRIEF CLINICAL HISTORY: This is an 81-year-old male, very poor historian, with history of anemia, pernicious, iron deficiency; hypertension; and intermittent hemorrhoid, admitted with right-sided chest pain. Denies any chest pain, but complains of dyspnea on exertion, though the patient denies any bright red blood per rectum, hematochezia. Denies any hemoptysis or hematemesis. PAST MEDICAL HISTORY: Significant for hypertension, legally blind, history of blood transfusion, history of GI bleeding in the past. SOCIAL HISTORY: Denies smoking. Denies any history of alcohol abuse. Denies any history of substance abuse. ALLERGIES: NO KNOWN DRUG ALLERGIES. CURRENT MEDICATIONS: The patient is taking Norvasc, valsartan, folic acid, Feosol, hydrochlorothiazide, timolol maleate eye drops, and enalapril. REVIEW OF SYSTEMS: As per HPI. PHYSICAL EXAMINATION: As follows: VITAL SIGNS: Temperature afebrile, heart rate 94, blood pressure 140/73. HEENT: PERRLA, intact. NECK: Supple. No carotid bruit or thyromegaly. CHEST: Clear to auscultation. HEART: S1 and S2 regular. ABDOMEN: Soft. EXTREMITIES: Clubbing and cyanosis negative. LABORATORY DATA: WBC 8.9, hemoglobin 4, hematocrit 16.9, platelet 747. Chemistry shows sodium , potassium 3.5, chloride 101, carbon dioxide 30, anion gap of 15, BUN 29, creatinine 1.4. EKG showed normal sinus APCs with heart rate of 83, poor progression, nonspecific ST-T changes noted. IMPRESSION: Severe anemia, rib pain in the right side which is atypical, does not appear to be cardiac. Rule out gastrointestinal bleed. Probably, these symptoms, are most likely, the shortness of breath, secondary to anemia. Hypertension, legally blind. RECOMMENDATIONS: Aggressive blood transfusion. The patient was offered 2 units of packed RBC. The patient is getting first unit of blood. Repeat CBC, anemia workup, GI evaluation. We will get echo to assess LV function, lipid profile, TSH, hemoglobin A1c. Further recommendation as per hospital course. We will follow with you. Thank you, Dr. Saavedra, for providing us the opportunity in taking care of the patient, Franco Olson. Katie Faulkner MD
[2017-06-30] MEDS: Dextrose 5%/0.9% NS 1,000 ML IV SCH (20:22)
--- NOTE | 2017-06-30 21:26 | CT ---
EXAM: CT Abdomen and Pelvis Without Intravenous Contrast CLINICAL HISTORY: 81 years old, male; Condition or disease; Other: Severe anemia TECHNIQUE: Axial computed tomography images of the abdomen and pelvis without intravenous contrast. All CT scans at this facility use one or more dose reduction techniques, viz.: automated exposure control; ma/kV adjustment per patient size (including targeted exams where dose is matched to indication; i.e. head); or iterative reconstruction technique. Coronal and sagittal reformatted images were created and reviewed. COMPARISON: No relevant prior studies available. FINDINGS: Limitations: Lack of intravenous contrast. Motion artifact - mild. Lower thorax: Minimal atelectasis/scarring. Small hiatal hernia. ABDOMEN: Liver: Few < 0.5 cm lesions. Gallbladder and bile ducts: No calcified stones. No ductal dilation. Pancreas: Unremarkable. No ductal dilation. Spleen: No splenomegaly. Adrenals: No mass. Kidneys and ureters: Mild scarring/atrophy of left kidney. No renal calculi. No hydronephrosis. Stomach and bowel: No definite mural thickening. No obstruction. Appendix: No definite findings to suggest acute appendicitis. PELVIS: Bladder: Small bladder diverticulum. No stones. Reproductive: Mildly enlarged prostate. ABDOMEN and PELVIS: Intraperitoneal space: No significant fluid collection. No free air. Bones/joints: Degenerative changes of spine. No acute fracture. Soft tissues: Mild gynecomastia. Vasculature: Mild atherosclerotic disease of iliac arteries. No aneurysm. Lymph nodes: No pathologically enlarged lymph nodes. IMPRESSION: 1. No definite acute intraabdominal abnormality. 2. Liver lesions. For patients with low to average risk of malignancy, no further follow-up is necessary. For patients with high risk of malignancy (known malignancy that can metastasize or other risk factors), recommend follow-up abdominal CT or MR in 6 months. 3. Incidental/non-acute findings are described above.
[2017-06-30] MEDS: Latanoprost 2.5 ml Opht Soln OU SCH (22:22)
--- NOTE | 2017-07-01 03:03 | CON ---
DATE: Chart reviewed. The patient is off of the floor for medical testing. We will reassess tomorrow. Robert Mccormack MD/ PhD
[2017-07-01] MEDS: Pantoprazole 40 mg EC Tab PO SCH (05:52)
[2017-07-01 07:29] LABS: MEAN CELL VOLUME 70.2 fl (80.0-105.0); MEAN CORPUSCULAR HEMOGLOBIN 19.1 pg (25.0-35.0); MEAN CORPUSCULAR HGB CONC 27.2 g/dl (31.0-37.0); PLATELET COUNT 602 10^3/uL (120.0-450.0); RBC 3.25 10^6/uL (3.5-6.1); RED CELL DISTRIBUTION WIDTH 32.5 % (11.5-14.5); WHITE BLOOD COUNT 6.2 10^3/ul (4.5-11.0)
[2017-07-01 07:58] LABS: BLOOD UREA NITROGEN 20 mg/dL (7-21); CALCIUM 8.9 mg/dL (8.4-10.5); GFR AFRICAN-AMERICAN > 60; GFR NON-AFRICAN AMERICAN > 60; HEMOGLOBIN 6.2 g/dL (14.0-18.0)
[2017-07-01] MEDS: Dextrose 5%/0.9% NS 1,000 ML IV SCH ×2 (09:45→22:24)
[2017-07-01] MEDS: Dorzolamide 2%/Timolol 0.5% 100 DROP/10 ML BOTTLE OD SCH ×2 (10:31→17:52)
--- NOTE | 2017-07-01 17:17 | CP.PCM.PN ---
<Simona Aj - Last Filed: 07/01/17 17:19> Subjective - Date & Time of Evaluation Date of Evaluation: 07/01/17 Time of Evaluation: 10:00 - Subjective Subjective: S&E at bedside, chart reviewed, remains on 1:1, at bedside, no reports of overt GIB. hgb 6.2, no reports of BM, no N.V or abdominal pain. No acute overnight events reported. Ct scan report reviewed, see [facility] for full report. Reporting hepatic lesion. Patient did have previous ct scan 2016 also report hepatic lesion. Objective - Vital Signs/Intake and Output Vital Signs (last 24 hours): Temp Pulse Resp BP Pulse Ox 98.5 F 65 16 108/70 100 07/01/17 16:15 07/01/17 16:15 07/01/17 16:15 07/01/17 16:15 07/01/17 06:00 Intake and Output: 07/01/17 07/01/17 06:59 18:59 Intake Total 960 120 Output Total 300 Balance 960 -180 - Medications Medications: Current Medications Amlodipine Besylate (Norvasc) 10 mg PO DAILY [facility] Last Admin: 07/01/17 10:29 Dose: 10 mg Aspirin (Aspirin) 325 mg PO DAILY [facility] Last Admin: 07/01/17 10:29 Dose: 325 mg Cyanocobalamin (Vitamin B12 1000 Mcg Tab) 1,000 mcg PO DAILY [facility] Last Admin: 07/01/17 10:29 Dose: 1,000 mcg Dorzolamide/Timolol (Cosopt 2%-0.5% Opht) 1 drop OD BID [facility] Last Admin: 07/01/17 10:31 Dose: 1 drop Ferrous Sulfate (Feosol) 324 mg PO DAILY [facility] Last Admin: 07/01/17 10:29 Dose: 324 mg Folic Acid (Folic Acid) 1 mg PO DAILY [facility] Last Admin: 07/01/17 10:29 Dose: 1 mg Hydrochlorothiazide (Microzide) 12.5 mg PO DAILY [facility] Last Admin: 07/01/17 10:29 Dose: 12.5 mg Dextrose/Sodium Chloride (Dextrose 5%/0.9% Ns 1000 Ml) 1,000 mls @ 80 mls/hr IV .[id number] [facility] Last Admin: 07/01/17 09:45 Dose: 80 mls/hr Latanoprost (Xalatan Opht) 0 ml OU HS [facility] Last Admin: 06/30/17 22:22 Dose: 2.5 ml Losartan Potassium (Cozaar) 100 mg PO DAILY [facility] Last Admin: 07/01/17 10:29 Dose: 100 mg Non-Formulary Medication (Brimonidine Tartrate [Brimonidine Tartrate]) 5 ml EACHEYE DAILY [facility] Pantoprazole Sodium (Protonix Ec Tab) 40 mg PO 0600 [facility] Last Admin: 07/01/17 05:52 Dose: 40 mg - Labs Labs: 07/01/17 06:30 07/01/17 06:30 - Constitutional Appears: No Acute Distress - Head Exam Head Exam: NORMOCEPHALIC - Eye Exam Eye Exam: Normal appearance. absent: Scleral icterus - ENT Exam ENT Exam: Mucous Membranes Moist - Neck Exam Neck Exam: Normal Inspection - Respiratory Exam Respiratory Exam: NORMAL BREATHING PATTERN. absent: Respiratory Distress - Cardiovascular Exam Cardiovascular Exam: +S1, +S2 - GI/Abdominal Exam GI & Abdominal Exam: Soft, Normal Bowel Sounds. absent: Guarding, Tenderness, Rebound - Extremities Exam Extremities Exam: absent: Calf Tenderness - Neurological Exam Neurological Exam: Alert, Awake, Oriented x3 - Skin Skin Exam: Dry, Warm Assessment and Plan - Assessment and Plan (Free Text) Assessment: Assessment: Severe anemia, rule out peptic ulcer disease, angiodysplasia Right-sided upper/chest pain History of peptic ulcer disease Iron deficiency anemia Cataract/Glaucoma/legally blind Hypertension Heaptic lesion History of colon polyp Diverticulosis Hypernatremia Plan: monitor H&H and for overt GI bleed Continue PPI on clear liquid transfuse 2 units of PRBC this am on Iron start miralax daily labs cbc/bmp in am on D5W Consider endoscopic evaluation when optimal, patient currently being optimized for anemia/dehydration/electrolyte imbalance, will closely FU. Seen and discussed with Dr. Jacobo. <Cl Jacobo V - Last Filed: 07/01/17 23:28> Objective - Vital Signs/Intake and Output Vital Signs (last 24 hours): Temp Pulse Resp BP Pulse Ox 99.1 F 74 19 128/71 100 07/01/17 22:15 07/01/17 22:15 07/01/17 22:15 07/01/17 22:15 07/01/17 06:00 Intake and Output: 07/01/17 07/02/17 18:59 06:59 Intake Total 1165 840 Output Total 300 425 Balance 865 415 - Medications Medications: Current Medications Amlodipine Besylate (Norvasc) 10 mg PO DAILY [facility] Last Admin: 07/01/17 10:29 Dose: 10 mg Aspirin (Aspirin) 325 mg PO DAILY [facility] Last Admin: 07/01/17 10:29 Dose: 325 mg Cyanocobalamin (Vitamin B12 1000 Mcg Tab) 1,000 mcg PO DAILY [facility] Last Admin: 07/01/17 10:29 Dose: 1,000 mcg Dorzolamide/Timolol (Cosopt 2%-0.5% Opht) 1 drop OD BID [facility] Last Admin: 07/01/17 17:52 Dose: 1 drop Ferrous Sulfate (Feosol) 324 mg PO DAILY [facility] Last Admin: 07/01/17 10:29 Dose: 324 mg Folic Acid (Folic Acid) 1 mg PO DAILY [facility] Last Admin: 07/01/17 10:29 Dose: 1 mg Hydrochlorothiazide (Microzide) 12.5 mg PO DAILY [facility] Last Admin: 07/01/17 10:29 Dose: 12.5 mg Dextrose/Sodium Chloride (Dextrose 5%/0.9% Ns 1000 Ml) 1,000 mls @ 80 mls/hr IV .[id number] [facility] Last Admin: 07/01/17 22:24 Dose: Not Given Latanoprost (Xalatan Opht) 0 ml OU HS [facility] Last Admin: 07/01/17 22:23 Dose: 2.5 ml Losartan Potassium (Cozaar) 100 mg PO DAILY [facility] Last Admin: 07/01/17 10:29 Dose: 100 mg Non-Formulary Medication (Brimonidine Tartrate [Brimonidine Tartrate]) 5 ml EACHEYE DAILY [facility] Pantoprazole Sodium (Protonix Ec Tab) 40 mg PO 0600 [facility] Last Admin: 07/01/17 05:52 Dose: 40 mg Polyethylene Glycol (Miralax) 17 gm PO DAILY [facility] Risperidone (Risperdal Tab) 0.25 mg PO HS [facility] PRN Reason: Protocol Last Admin: 07/01/17 22:22 Dose: 0.25 mg - Labs Labs: 07/01/17 06:30 07/01/17 06:30 Attending/Attestation - Attestation I have personally seen and examined this patient.: Yes I have fully participated in the care of the patient.: Yes I have reviewed all pertinent clinical information, including history, physical exam and plan: Yes Notes (Text): This is an addendum to GI progress report dictated by Simona Aj APN.The patient was seen and examined earlier. Medical records, lab studies, imagings were reviewed. Last 24 hours events reviewed. Agreed with the above treatment plan as outlined in Simona Aj APN's notes the with the addition of the following on examination abdomen soft no tenderness sodium level still remains high Patient is now on one to one Consider EGD and colonoscopy when more optimized Follow up of the hemoglobin hematocrit ordered 2 more units of packed RBC PPI 07/01/17 23:26
[2017-07-01] MEDS: Latanoprost 2.5 ml Opht Soln OU SCH (22:23)
--- NOTE | 2017-07-02 00:20 | PN ---
DATE: 07/01/2017 LOCATION: Patient is in room #371, bed 1. REASON FOR CONSULTATION: Shortness of breath, severe anemia. SUBJECTIVE: Patient is lying down. He does not have any shortness of breath. He has history of shortness of breath on exertion and found to have severe anemia. PHYSICAL EXAMINATION: VITAL SIGNS: Blood pressure 103/52, respirations 18, pulse 74, temperature 98. HEENT: Head is normocephalic. Eyes; pupils normal, conjunctivae pale. NECK: JVP low. Carotids equal. THORAX: AP diameter normal. LUNGS: Clear. CARDIOVASCULAR: S1 and S2. ABDOMEN: Soft, nontender. No organomegaly. Bowel sounds normal. EXTREMITIES: No clubbing, no cyanosis. LABORATORY DATA: WBC 6.2, hemoglobin 6.2. On 06/29/2017, hemoglobin was 4.0, hematocrit ; on 06/29/2017, hematocrit was , platelets 602. Sodium 152, potassium 3.6, BUN 20, creatinine 1.1. DIAGNOSES: Severe anemia, rib pain on the right side, pain that is atypical chest pain probably related to the musculoskeletal element. Severe anemia, rule out gastrointestinal bleeding. The patient's shortness of breath is most likely on the basis of severe anemia. History of hypertension, legally blind. The patient had an echocardiogram on 06/30/2017, which showed left ventricle normal size, borderline mild concentric left ventricular hypertrophy. Left ventricular ejection fraction 55% to 60%. Right ventricle, mildly to moderately dilated. Systolic function of right ventricle is mild to moderately reduced. Mitral regurgitation is mild to moderate, severe tricuspid regurgitation with right ventricular systolic pressure of 88 mmHg suggestive of severe pulmonary hypertension. PLAN: The patient should be given blood transfusions. We will continue losartan 100 mg daily, ferrous sulfate 324 p.o. daily, folic acid 1 mg daily, hydrochlorothiazide 12.5 daily, amlodipine 10 daily, Protonix 40 p.o. daily, vitamin B12 1000 mcg p.o. daily. We will follow with you. Katie Johns MD
--- NOTE | 2017-07-02 00:38 | CON ---
DATE: IDENTIFYING INFORMATION: The patient is an 81-year-old male who has a past medical history of pernicious anemia, iron deficiency, internal hemorrhoids, hypertension, cataracts, glaucoma and who is legally blind. He had come to the emergency room with his after experiencing a right-sided chest pain as well as abdominal and flank pain. He was noted to have periods of altered mental status and speech that was incomprehensible due to a language barrier (with his grindstone language being Creole). I find the patient today with a one-on-one sitter, still somewhat difficult to comprehend because of his language barrier. He tends to ramble. 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 He appears to have many children. He resides with his . Nursing observed that he is alert and oriented to self and person but does get confused and can be restless. He presently does not appear to be responding to internal stimuli. He does not appear to have a history of substance abuse. Social work has observed that the patient does reside with his . He has elevator access to his apartment. There is no Power of Filter Cleaner. The patient's hemoglobin on 06/29 was 4.0 and is still low today at 6.21. His hematocrit was at 16.9 on 06/29 and today is 22.8. His platelet count on 06/29 was 747, today it is 602 Urinalysis showed 100 protein with 1.0 bilinogen. A biochemical profile showed sodium on 06/30 of 156. Today, it is still elevated at 152. Serum iron is 11, TIBC 357, percent saturation 3. Because of the patient's agitation, I have started him on low-dose Risperdal (0.25). He is additionally on hydrochlorothiazide 12.5 mg, MiraLax 17 mg, Norvasc 10 mg, Protonix 40 mg daily, vitamin B12 of 1000 mcg, Xalatan ophthalmic solution. Temperature 99.1 pulse 74, blood pressure 128/71, respiratory rate 19. DIAGNOSIS: Rule out delirium. I will continue to monitor this patient with you. Thank you for this interesting consultation. Robert Mccormack MD/
--- NOTE | 2017-07-02 04:49 | PN ---
SUBJECTIVE: The patient is seen and examined at the bedside, sitting on the chair. was sitting on the chair also. The patient was on one-to-one. No evidence about GI bleeding. Hemoglobin 6.2. No bowel movement. No nausea or vomiting or abdominal pain. No hematuria or hematochezia. CAT scan is done. No fever. No chills. PHYSICAL EXAMINATION VITAL SIGNS: Temperature 98.5, pulse 55, respirations 16, blood pressure 108/70, pulse 100. HEENT: Head is normocephalic and atraumatic. Eyes; PERRLA. Extraocular muscles intact. Conjunctivae clear. Nose patent. Mucous membranes moist. NECK: Supple. No carotid bruits, JVD or thyromegaly. CHEST: Bilaterally symmetrical. HEART: S1 and S2 positive. LUNGS: Clear to auscultation. ABDOMEN: Soft. Bowel sounds positive. No organomegaly. EXTREMITIES: No edema. No cyanosis. NEUROLOGICAL: The patient is awake and alert. Moving all 4 extremities. No focal deficit. MEDICATIONS: Norvasc, aspirin, vitamin, Cosopt, ferrous sulfate, folic acid, hydrochlorothiazide, dextrose, Zilenta, Cozaar and pantoprazole. LABORATORY DATA: White blood cell 6.2, hemoglobin 6.2, hematocrit 22.8 and platelets 206. Sodium 152, potassium 3.6, BUN 20, creatinine 1.1 and glucose 99. ASSESSMENT AND PLAN: Mr. Franco Olson is an 81-year-old male with severe anemia, status post blood transfusion; thrombocytosis; hypernatremia; hyperchloremia; came with severe anemia rule out peptic ulcer disease, angiodysplasia, right-sided upper chest pain, history of peptic ulcer disease, iron deficiency anemia, history of cataracts surgery, glaucoma, legally blind, hypertension, hepatic lesion, history of colonic polyp, very noncompliant, diverticulosis, history of electrolyte imbalance. We are monitoring H and H for overt gastrointestinal bleeding. Continuing PPI. Clear liquid diet. Transfused 2 packs of red blood cells. Started on MiraLax, on D5W. We will do endoscopy evaluation when optimal. The patient currently being optimized for anemia, dehydration, electrolyte imbalance, closely followed up. Reviewed Dr. Jacobo's notes. Discussion done with the patient's . The patient is restless and confused. Psych consult called by Dr. Mccormack, waiting for the input. We will follow up. Danielle Saavedra MD SUPA
[2017-07-02] MEDS: Pantoprazole 40 mg EC Tab PO SCH (05:50)
[2017-07-02 07:05] LABS: BASO # 0.06 K/mm3 (0.0-2.0); BASO % 0.7 % (0.0-3.0); EOS # 0.7 (0.0-0.7); EOS % 8.7 % (1.5-5.0); GRAN # 4.91 (1.4-6.5); HEMOGLOBIN 9.1 g/dL (14.0-18.0); LYMPH % 24.4 % (22.0-35.0); MEAN CELL VOLUME 73.2 fl (80.0-105.0); MEAN CORPUSCULAR HEMOGLOBIN 21.2 pg (25.0-35.0); MONO # 0.6 (0.1-0.6); MONO % 7.2 % (1.0-6.0); PLATELET COUNT 522 10^3/uL (120.0-450.0); RBC 4.29 10^6/uL (3.5-6.1); RED CELL DISTRIBUTION WIDTH 29.4 % (11.5-14.5); WHITE BLOOD COUNT 8.3 10^3/ul (4.5-11.0)
[2017-07-02 07:44] LABS: BLOOD UREA NITROGEN 15 mg/dL (7-21); CALCIUM 9.1 mg/dL (8.4-10.5); GFR AFRICAN-AMERICAN > 60; GFR NON-AFRICAN AMERICAN > 60
[2017-07-02] MEDS: POLYETHYLENE GLYCOL 3350 17 GM/Dose PACKET PO SCH (12:01)
[2017-07-02] MEDS: Dorzolamide 2%/Timolol 0.5% 100 DROP/10 ML BOTTLE OD SCH ×2 (12:08→18:32)
[2017-07-02] MEDS: Dextrose 5%/0.9% NS 1,000 ML IV SCH (12:08)
[2017-07-02] MEDS ORDERED: Propofol 10 mg/ml Inj (20 ML) ONE (15:22)
[2017-07-02] MEDS ORDERED: Etomidate 40 MG/20 ML ML IV ONE (15:23)
[2017-07-02] MEDS ORDERED: Sodium Chloride 0.9% 1,000 ML IV SCH (16:30)
--- NOTE | 2017-07-02 21:03 | PN ---
DATE: REASON FOR CONSULTATION AND FOLLOWUP: Shortness of breath, severe anemia, status post RBC transfusion, altered mental status. BRIEF CLINICAL HISTORY: The patient is sitting at the bedside, not in apparent distress. No chest pain. Obviously not in apparent distress. PHYSICAL EXAMINATION VITAL SIGNS: Temperature afebrile, heart rate 62, blood pressure 130/85. HEENT: PERRLA. Extraocular muscles intact. NECK: Supple. No carotid bruits or thyromegaly. CHEST: Clear to auscultation HEART: S1 and S2 regular. ABDOMEN: Soft. EXTREMITIES: Clubbing and cyanosis negative. IMPRESSION: Severe anemia, rib pain on the right side, atypical chest pain, rule out gastrointestinal bleed, shortness of breath most likely secondary to severe anemia. The patient's echocardiogram on 06/30/2017 does show evidence of borderline concentric left ventricular hypertrophy, ejection fraction around 60%, right ventricle is mild to moderately dilated, systolic function of right ventricle is mild to moderately reduced, [id number] severe tricuspid regurgitation with severe pulmonary hypertension. RECOMMENDATION: Continue packed RBC transfusion and keep hemoglobin around 9. The patient admitted with poor hemoglobin, postoperatively 6.2, today is 9.1. . The patient requires endoscopy. Cleared from cardiac point of view to go for endoscopy. We will discontinue telemetry. Thank you Dr. Saavedra for providing me the opportunity in taking care of the patient Wesley Gamez. We will follow with you. Katie Faulkner MD
[2017-07-02] MEDS: Latanoprost 2.5 ml Opht Soln OU SCH (21:45)
--- NOTE | 2017-07-03 02:02 | PN ---
SUBJECTIVE: Patient is seen and examined on the bedside, looking comfortable, status post upper endoscopy. PHYSICAL EXAMINATION VITAL SIGNS: Temperature 98.6, heart rate 62, blood pressure 130/85. HEENT: Head is normocephalic and atraumatic. Eyes; PERRLA. Extraocular muscles are intact. Conjunctivae clear. Nose patent. Mucous membranes moist. NECK: Supple. No carotid bruits. No JVD or thyromegaly. CHEST: Bilaterally symmetrical. HEART: S1 and S2 positive. LUNGS: Clear to auscultation. ABDOMEN: Soft. Bowel sounds present. No organomegaly. EXTREMITIES: No edema. No cyanosis. NEUROLOGICAL: The patient is awake and alert. Moving all 4 extremities. No focal deficit. MEDICATIONS: Aspirin, Cosopt eye drops, Cozaar, dextrose, Feosol, folic acid, hydrochlorothiazide, Microzide, MiraLax, Norvasc, Protonix, B12, Risperdal. LABORATORY DATA: White blood cell 8.3, hemoglobin 9.1, on admission it was 4.0, hematocrit 31.4, platelets of 522. Sodium 146, potassium 3.9, BUN 15, creatinine 1.0, calcium 9.1, protein 100. ASSESSMENT AND PLAN: Mr. Wesley Gamez is an [id number] male who has proteinuria, severe symptomatic anemia improving,history of thrombocytosis got better, history of hypernatremia improved, hyperchloremia, seen by Dr. Jacobo that for endoscopy today, also esophagogastroduodenoscopy shows multiple duodenal ulcers, rule out H. pylori, as per Dr. Jacobo do not look like malignant, seen by Dr. Faulkner, assistant county engineer. Patient needs colonoscopy but very noncompliant as outpatient, came with rib pain on the right side, atypical chest pain, rule out gastrointestinal bleeding, shortness of breath looks like due to secondary to anemia. Echography shows evidence of borderline concentric left ventricular hypertrophy, ejection fraction of 60%. We will continue packed RBC transfusion, keep the hemoglobin round about 9 as per cardiology. Patient was cleared from cardiological view of point for GI procedures. Discussion with Dr. Jacobo may be will make patient prepare for colonoscopy. Reviewed CAT scan of the abdomen and pelvis. No definite acute intraabdominal abnormalities or liver lesion. For most with [id number] risk of malignancy, no follow up is necessary. For patient with the high risk of known malignancy that matters to other risk factors, recommended followup CAT scan or MRA in 6 months. We will follow up with gastrointestinal and deep venous thrombosis. Repeat labs. Danielle Saavedra MD
[2017-07-03] MEDS: Pantoprazole 40 mg EC Tab PO SCH (05:48)
[2017-07-03 08:41] LABS: BASO # 0.04 K/mm3 (0.0-2.0); BASO % 0.6 % (0.0-3.0); EOS # 0.4 (0.0-0.7); EOS % 5.5 % (1.5-5.0); GRAN % 67.2 % (50.0-68.0); HEMOGLOBIN 9.3 g/dL (14.0-18.0); LYMPH # 1.3 (1.2-3.4); MEAN CELL VOLUME 73.8 fl (80.0-105.0); MEAN CORPUSCULAR HEMOGLOBIN 21.2 pg (25.0-35.0); MEAN CORPUSCULAR HGB CONC 28.7 g/dl (31.0-37.0); MONO # 0.5 (0.1-0.6); MONO % 6.7 % (1.0-6.0); PLATELET COUNT 384 10^3/uL (120.0-450.0); RBC 4.39 10^6/uL (3.5-6.1); RED CELL DISTRIBUTION WIDTH 30.3 % (11.5-14.5); WHITE BLOOD COUNT 6.7 10^3/ul (4.5-11.0)
[2017-07-03 08:49] LABS: BLOOD UREA NITROGEN 14 mg/dL (7-21); GFR AFRICAN-AMERICAN > 60; GFR NON-AFRICAN AMERICAN > 60
[2017-07-03] MEDS: POLYETHYLENE GLYCOL 3350 17 GM/Dose PACKET PO SCH (10:07)
[2017-07-03] MEDS: Dextrose 5%/0.9% NS 1,000 ML IV SCH (10:07)
[2017-07-03] MEDS: Latanoprost 2.5 ml Opht Soln OU SCH (21:50)
--- NOTE | 2017-07-04 04:16 | PN ---
DATE: SUBJECTIVE: Patient is seen and examined at the bedside, looking comfortable, was sitting on the bedside also. No fever. No chills. No nausea, vomiting or diarrhea. No hematuria or hematochezia.. No swelling of the legs. No chest pain. No palpitation. PHYSICAL EXAMINATION VITAL SIGNS: Temperature 97.5, pulse 63, blood pressure 142/90, and respirations 18. HEENT: Head is normocephalic and atraumatic. Eyes; PERRLA. Extraocular muscles intact. Conjunctivae clear. Nose patent. Mucous membranes moist. NECK: Supple. No carotid bruits or thyromegaly. CHEST: Bilaterally symmetrical. HEART: S1 and S2 positive. LUNGS: Clear to auscultation. ABDOMEN: Soft. Bowel sounds positive. No organomegaly. EXTREMITIES: No edema. No cyanosis. NEUROLOGICAL: The patient is awake and alert. Moving all 4 extremities. No focal deficit. MEDICATIONS: Aspirin, Cozaar, dextrose, iron sulfate, folic acid, hydrochlorothiazide, MiraLax, Norvasc, Protonix, Risperdal, B12, and Xalatan eye drops. LABORATORY DATA: White blood cell 6.7, hemoglobin 9.3, hematocrit 32.4, platelets of 384. Sodium 143, potassium 4.0, BUN 14, creatinine 0.9. Protein in the urine is positive. ASSESSMENT AND PLAN: Franco Olson is an 81-year-old male with anemia; history of thrombocytosis, improved; hyperchloremia; proteinuria, came with lower gastrointestinal bleeding. Upper endoscopy done by Dr. Jacobo showed severe duodenal ulcer, abnormal CAT scan, liver density. The patient came with hemoglobin 4; we could not get any big source of bleeding. Discussion done with Dr. Jacobo, planning to do colonoscopy. The patient is legally blind. He is not very cooperative, noncompliant. Urged to be compliant, education done , moniter H and H. He will get ready for colonoscopy. Nurse, Denzel, he speaks Estonian, he did translation for me. Length of time discussion done with the . All questions answered for the and the patient. We will follow up. Danielle Saavedra MD MTDD
--- NOTE | 2017-07-04 06:08 | PN ---
DATE: 07/03/2017 SUBJECTIVE: This patient was seen and evaluated earlier. The patient's was at bedside. No episodes of bleeding per rectum. PHYSICAL EXAMINATION: VITAL SIGNS: Temperature is 97.5, pulse 63, and blood pressure 142/90. HEENT: Atraumatic. Anicteric. NECK: Supple. HEART: S1 and S2. LUNGS: Bilateral air entry present. ABDOMEN: Soft. There is no tenderness. EXTREMITIES: No cyanosis. No clubbing. LABORATORY DATA: Hemoglobin 9.3, hematocrit 32.4, WBC 6.7, and platelets 384. BUN 14 and creatinine 0.5. IMPRESSION: This 81-year-old patient admitted with severe anemia. Multiple transfusions given. Hemoglobin now is stable. Upper GI endoscopy done earlier showed large duodenal ulcers. I did have a detailed discussed with the patient's primary physician Dr. Saavedra. The patient is extremely noncompliant to followup. The patient denies any history of rectal polyp or lesion. The patient will continue the high dose PPI. RECOMMENDATIONS: 1. Continue the high dose PPI. 2. The patient would benefit from colonoscopy in view of the severe anemia to rule out any colonic source of blood loss in addition to h/o DU 3. h/o Rectal lesion need followup Non compliaant with folowups We will start the 2-day preparation for that. Continue to closely followup him and suggest further management based on the clinical course. Cl Jacobo MD MTDD
[2017-07-04 07:35] LABS: BASO # 0.01 K/mm3 (0.0-2.0); BASO % 0.2 % (0.0-3.0); EOS # 0.2 (0.0-0.7); EOS % 3.6 % (1.5-5.0); GRAN # 4.61 (1.4-6.5); GRAN % 72.4 % (50.0-68.0); HEMOGLOBIN 8.9 g/dL (14.0-18.0); LYMPH # 1.2 (1.2-3.4); LYMPH % 18.6 % (22.0-35.0); MEAN CELL VOLUME 73.5 fl (80.0-105.0); MEAN CORPUSCULAR HEMOGLOBIN 21.2 pg (25.0-35.0); MEAN CORPUSCULAR HGB CONC 28.9 g/dl (31.0-37.0); MONO # 0.3 (0.1-0.6); MONO % 5.2 % (1.0-6.0); PLATELET COUNT 309 10^3/uL (120.0-450.0); RBC 4.19 10^6/uL (3.5-6.1); RED CELL DISTRIBUTION WIDTH 30.7 % (11.5-14.5); WHITE BLOOD COUNT 6.4 10^3/ul (4.5-11.0)
[2017-07-04 08:00] LABS: BLOOD UREA NITROGEN 11 mg/dL (7-21); GFR AFRICAN-AMERICAN > 60; GFR NON-AFRICAN AMERICAN > 60
[2017-07-04] MEDS ORDERED: Gadodiamide 287 MG/ML VIAL (15ML) IV ONE (09:59)
[2017-07-04] MEDS ORDERED: Brimonidine 0.15% 50 DROP/5 ML BOTTLE OU SCH (10:00)
[2017-07-04] MEDS: Dorzolamide 2%/Timolol 0.5% 100 DROP/10 ML BOTTLE OD SCH (11:03)
[2017-07-04] MEDS: POLYETHYLENE GLYCOL 3350 17 GM/Dose PACKET PO SCH (11:04)
--- NOTE | 2017-07-04 12:15 | MRI ---
PROCEDURE: MRI BRAIN WITH AND WITHOUT CONTRAST HISTORY: altered mental status COMPARISON: None. TECHNIQUE: Multiplanar, multisequence MR images of the brain were obtained with and without intravenous contrast enhancement. 15 cc Omniscan was injected intravenously. FINDINGS: HEMORRHAGE: None DWI: No evidence of an acute or early subacute infarction. BRAIN PARENCHYMA: There are moderate chronic microangiopathic changes. There is no mass, mass effect or abnormal extra-axial fluid collection. The midline sagittal structures are normal. ENHANCEMENT: There is no abnormal parenchymal or leptomeningeal enhancement. VENTRICLES: There is mild age-related global loss and proportionate enlargement of the ventricles and cortical sulci. . CRANIUM: There is normal bone marrow signal pattern. ORBITS: Grossly unremarkable. PARANASAL SINUSES/MASTOIDS: There is mild mucosal thickening in the paranasal sinuses, worse in the left maxillary sinus and small left mastoid effusion. The right mastoid air cells are clear. VASCULAR SYSTEM: There are no signal voids in the larger intracranial arteries. OTHER FINDINGS: None . IMPRESSION: No acute intracranial abnormality. Moderate chronic microangiopathic changes and mild age-related global parenchymal volume loss.
[2017-07-04] MEDS ORDERED: Magnesium Citrate Oral SOL (300 ml) PO ONE (15:09)
[2017-07-04] MEDS ORDERED: Bisacodyl 5mg EC Tab PO ONE (15:09)
[2017-07-04] MEDS: Brimonidine 0.15% 50 DROP/5 ML BOTTLE OU SCH (16:19)
[2017-07-04] MEDS: Pantoprazole 40 mg EC Tab PO SCH (19:32)
[2017-07-04] MEDS: Latanoprost 2.5 ml Opht Soln OU SCH (22:02)
--- NOTE | 2017-07-05 01:15 | PN ---
DATE: SUBJECTIVE: The patient is an 81-year-old male. The patient is seen and examined at the bedside, looking comfortable, sitting on the chair, having liquid diet, having diarrhea. No nausea or vomiting. No hematuria or hematochezia. No swelling of the legs. No chest pain. No palpitation. No shortness of breath. PHYSICAL EXAMINATION: VITAL SIGNS: Temperature 98.5, pulse 69, blood pressure 138/95, and respiratory rate 18. HEENT: Head is normocephalic and atraumatic. Eyes; PERRLA. Extraocular muscles intact. Conjunctivae clear. Nose patent. Mucous membranes moist. NECK: Supple. No carotid bruits. No JVD or thyromegaly. CHEST: Bilaterally symmetrical. HEART: S1 and S2 positive. LUNGS: Clear to auscultation. ABDOMEN: Soft. Bowel sounds positive. No organomegaly. EXTREMITIES: No edema. No cyanosis. NEUROLOGIC: The patient is awake and alert. Moving all 4 extremities. No focal deficits. MEDICATIONS: Eye drops, aspirin, Cozaar, dextrose, Dulcolax, iron, folic acid, hydrochlorothiazide, MiraLax, amlodipine, Protonix, risperidone, and cyanocobalamin. LABORATORY DATA: White blood cells 6.4, hemoglobin 8.9, hematocrit 30.8, and platelets 309. Sodium 140, potassium 3.4, BUN 11, creatinine 0.9, and glucose 90. ASSESSMENT AND PLAN: Mr. Franco Olson is an 81-year-old male stayed with severe anemia, status post blood transfusion, now hemoglobin is trending down; thrombocytosis, improved; hyperchloremia, improving; and proteinuria, went for MRI of the brain. There were episodes of altered mental status and anxiety that is why MRI of the brain was ordered. No acute intracranial pathology noted. Chronic microangiopathic changes and mild injury-related global parenchymal volume loss, seen by Dr. Cl Jacobo. Upper gastrointestinal endoscopy done earlier showed severe duodenal ulcer. Discussion done with Dr. Jacobo. The patient is very very noncompliant. We will continue high dose of PPI, getting ready the patient for colonoscopy on Wednesday. To see any chronic source of blood loss with history of duodenal ulcer, history of rectal lesion, need to follow up, noncompliant with followup. Dr. Jacobo will start 2-day preparation. Continue follow up closely. Gastrointestinal and deep vein thrombosis prophylaxis, out of bed. The patient is legally blind. Repeat labs. We will follow up. Danielle Saavedra MD
--- NOTE | 2017-07-05 02:35 | PN ---
DATE: 07/04/2017 SUBJECTIVE: This patient was seen and evaluated earlier. The patient is tolerating the diet. PHYSICAL EXAMINATION VITAL SIGNS: Temperature is 98.5, pulse is 69, and blood pressure is 138/95. GENERAL: No further episodes of bleeding. No complaints of any abdominal pain. GASTROINTESTINAL: On examination, abdomen is soft and no tenderness. EXTREMITIES: No edema. HEART: S1 and S2 regular. LUNGS: Bilateral air entry present. LABORATORY DATA: Hemoglobin of 8.9, hematocrit of 30.8, WBC of 6.4, and platelets of 309. BUN of 11 and creatinine of 0.9. IMPRESSION AND PLAN: This 81-year-old patient admitted with severe anemia with a hemoglobin of 4.5, the patient has large duodenal ulcers which could be the cause for the bleeding. However, the patient also has rectal polypoid lesion. The patient did not have follow up. The patient would benefit from colonoscopic evaluation, rule out any colonic source of blood loss. The patient will be placed on a clear liquid diet tomorrow and scheduled for colonoscopy on Wednesday. Thank you very much for allowing us to participate in the care of the patient. Cl Jacobo MD
[2017-07-05] MEDS: Pantoprazole 40 mg EC Tab PO SCH (05:40)
[2017-07-05] MEDS: Dextrose 5%/0.9% NS 1,000 ML IV SCH ×2 (05:56→13:26)
[2017-07-05] MEDS ORDERED: Bisacodyl 5mg EC Tab PO ONE (06:00)
[2017-07-05] MEDS: Brimonidine 0.15% 50 DROP/5 ML BOTTLE OU SCH (10:33)
[2017-07-05] MEDS: POLYETHYLENE GLYCOL 3350 17 GM/Dose PACKET PO SCH (10:35)
[2017-07-05] MEDS: Dorzolamide 2%/Timolol 0.5% 100 DROP/10 ML BOTTLE OD SCH ×2 (10:38→19:25)
[2017-07-05] MEDS ORDERED: Peg-Electrolyte Oral Soln 4L (Golytely) PO ONE (13:39)
[2017-07-05 14:32] LABS: INR 1.29 (0.93-1.08); PARTIAL THROMBOPLASTIN TIME 31.6 Seconds (25.1-36.5); PROTHROMBIN TIME 14.1 SECONDS (9.4-12.5)
--- NOTE | 2017-07-05 16:41 | PN ---
DATE: 07/05/2017 REASON FOR CONSULTATION AND FOLLOWUP: Shortness of breath, severe anemia, post oxygen, altered mental status, preop clearance for endoscopy. SUBJECTIVE: The patient is sitting in the bed. Denies any chest pain, shortness of breath or any palpitations. PHYSICAL EXAMINATION: GENERAL: Not in apparent distress. Sitting in the chair. VITAL SIGNS: Temperature afebrile, heart rate 79, and blood pressure 139/66. HEENT: PERRLA intact. NECK: Supple. No carotid bruits or thyromegaly. CHEST: Clear to auscultation. HEART: S1 and S2 regular. ABDOMEN: Soft. EXTREMITIES: Clubbing and cyanosis negative. LABORATORY DATA: Blood workup as follows; WBC 6.2, hemoglobin 8.9, hematocrit 30.8, and platelet count 309. Chemistry shows sodium 140, potassium 3.7, chloride 109, carbon dioxide 21, anion gap of 13, BUN 11, and creatinine 0.9. IMPRESSION: Severe anemia, admitting hemoglobin multiple RBC transfusion, status post endoscopy. The patient had echocardiography on 06/30/2017, that shows ejection fraction 55% to 60%, right ventricle moderately dilated, moderately reduced RV function, trace aortic regurgitation, no valvular aortic stenosis, [id number] mitral regurgitation, severe tricuspid regurgitation, right ventricular systolic pressure 80, consistent with severe pulmonary hypertension. The patient has bilateral carotid duplex scan done on 06/30/2017, that showed 22% to 39% bilateral internal carotid artery stenosis, it is not significant. The patient's brain MRI done yesterday no acute intracranial pathology noted, moderate chronic microangiopathic changes. Mild age related global parenchyma legally blind patient, possible dementia. RECOMMENDATIONS: CVS status is stable. If the patient needs another endoscopy, the patient is cleared from cardiac point of view, we will go for endoscopy. No further cardiac workup is planned at this time. Keep hemoglobin around 10. We will follow. The patient is cleared from endoscopy and colonoscopy as needed. No further cardiac workup is planned. Continue losartan and aspirin as per recommendation of Dr. Potter. Continue amlodipine. We will follow with you. We will repeat the blood workup tomorrow. Thank you Dr. Saavedra, for providing us the opportunity in taking care of the patient, Franco Olson. Katie Faulkner MD [facility] # [phone]
--- NOTE | 2017-07-05 20:35 | PN ---
DATE: 07/05/2017 SUBJECTIVE: This patient was seen and evaluated earlier today. PHYSICAL EXAMINATION: VITAL SIGNS: Temperature is 98.8, pulse is 79, and blood pressure is 139/66. HEENT: Atraumatic. Anicteric. NECK: Supple. HEART: S1 and S2 heard. LUNGS: Bilateral air entry present. ABDOMEN: Soft. There is no mass palpable. No tenderness. EXTREMITIES: No edema. No cyanosis. NEUROLOGIC: Alert episodes of confustion. LABORATORY DATA: No recent labs today. IMPRESSION AND PLAN: This 81-year-old patient admitted with severe anemia of Hb4.5 , status post a transfusion. Hemoglobin yesterday was 8.9. The patient has had multiple large duodenal ulcer. History of rectal polypoid lesion. The patient has a difficult noncompliant before. It is reasonable to consider colonoscopic evaluation. I have detailed discussion with the patient and the patient's family also before and discussed with Dr. Saavedra scheduled for colonoscopy tomorrow. We will discontinue the iron as a preparation for the procedure. We will also check PT and PTT. Thank you very much for allowing us to participate in the care of the patient. Cl Jacobo MD MTDD
[2017-07-05] MEDS: Latanoprost 2.5 ml Opht Soln OU SCH (21:22)
--- NOTE | 2017-07-06 03:59 | CP.PCM.PN ---
Subjective - Date & Time of Evaluation Date of Evaluation: 07/06/17 Time of Evaluation: 03:59 - Subjective Subjective: # 24 angiocath was inserted in right hand dorsum. Objective - Vital Signs/Intake and Output Vital Signs (last 24 hours): Temp Pulse Resp BP Pulse Ox 98.2 F 72 20 109/62 93 L 07/05/17 16:00 07/05/17 16:00 07/05/17 16:00 07/05/17 16:00 07/05/17 16:00 Intake and Output: 07/05/17 07/06/17 18:59 06:59 Intake Total 500 780 Balance 500 780 - Medications Medications: Current Medications Amlodipine Besylate (Norvasc) 10 mg PO DAILY [facility] Last Admin: 07/05/17 10:36 Dose: 10 mg Aspirin (Aspirin) 325 mg PO DAILY [facility] Last Admin: 07/05/17 10:36 Dose: 325 mg Brimonidine Tartrate (Alphagan P 0.15% Opht) 0 drop OU DAILY [facility] Last Admin: 07/05/17 10:33 Dose: 1 drop Cyanocobalamin (Vitamin B12 1000 Mcg Tab) 1,000 mcg PO DAILY [facility] Last Admin: 07/05/17 10:37 Dose: 1,000 mcg Dorzolamide/Timolol (Cosopt 2%-0.5% Opht) 1 drop OD BID [facility] Last Admin: 07/05/17 19:25 Dose: 1 drop Folic Acid (Folic Acid) 1 mg PO DAILY [facility] Last Admin: 07/05/17 10:37 Dose: 1 mg Hydrochlorothiazide (Microzide) 12.5 mg PO DAILY [facility] Last Admin: 07/05/17 10:36 Dose: 12.5 mg Dextrose/Sodium Chloride (Dextrose 5%/0.9% Ns 1000 Ml) 1,000 mls @ 80 mls/hr IV .[id number] [facility] Last Admin: 07/05/17 13:26 Dose: Not Given Latanoprost (Xalatan Opht) 0 ml OU HS [facility] Last Admin: 07/05/17 21:22 Dose: 2.5 ml Losartan Potassium (Cozaar) 100 mg PO DAILY [facility] Last Admin: 07/05/17 10:36 Dose: 100 mg Pantoprazole Sodium (Protonix Ec Tab) 40 mg PO 0600 [facility] Last Admin: 07/05/17 05:40 Dose: 40 mg Polyethylene Glycol (Miralax) 17 gm PO DAILY [facility] Last Admin: 07/05/17 10:35 Dose: 17 gm Risperidone (Risperdal Tab) 0.25 mg PO HS [facility] PRN Reason: Protocol Last Admin: 07/05/17 21:22 Dose: 0.25 mg - Labs Labs: 07/04/17 07:00 07/04/17 07:00 PT 14.1 SECONDS (9.4-12.5) H 07/05/17 14:15 INR 1.29 (0.93-1.08) H 07/05/17 14:15 APTT 31.6 Seconds (25.1-36.5) 07/05/17 14:15
[2017-07-06] MEDS: Dextrose 5%/0.9% NS 1,000 ML IV SCH ×2 (04:08)
[2017-07-06] MEDS: Pantoprazole 40 mg EC Tab PO SCH (05:51)
[2017-07-06 07:16] LABS: BASO # 0.01 K/mm3 (0.0-2.0); BASO % 0.2 % (0.0-3.0); EOS # 0.2 (0.0-0.7); EOS % 4.9 % (1.5-5.0); GRAN % 58.7 % (50.0-68.0); HEMOGLOBIN 8.4 g/dL (14.0-18.0); LYMPH # 1.1 (1.2-3.4); LYMPH % 26.9 % (22.0-35.0); MEAN CELL VOLUME 73.3 fl (80.0-105.0); MEAN CORPUSCULAR HEMOGLOBIN 21.4 pg (25.0-35.0); MEAN CORPUSCULAR HGB CONC 29.2 g/dl (31.0-37.0); MONO # 0.4 (0.1-0.6); MONO % 9.3 % (1.0-6.0); PLATELET COUNT 178 10^3/uL (120.0-450.0); RBC 3.93 10^6/uL (3.5-6.1); RED CELL DISTRIBUTION WIDTH 30.5 % (11.5-14.5); WHITE BLOOD COUNT 4.1 10^3/ul (4.5-11.0)
[2017-07-06 07:43] LABS: ALBUMIN 3.1 g/dL (3.0-4.8); ALT/SGPT 34 U/L (7-56); AST/SGOT 17 U/L (17-59); BLOOD UREA NITROGEN 14 mg/dL (7-21); GFR AFRICAN-AMERICAN > 60; GFR NON-AFRICAN AMERICAN > 60
[2017-07-06] MEDS ORDERED: Bisacodyl 5mg EC Tab PO ONE ×2 (08:03→15:00)
[2017-07-06] MEDS ORDERED: Magnesium Citrate Oral SOL (300 ml) PO ONE (08:04)
--- NOTE | 2017-07-06 09:30 | PN ---
DATE: 07/02/2017 He is being seen today for a followup consultation. PRESENTATION: The patient is an 81-year-old male seen at bedside. He has been having a one-to-one settle while in hospital; however, his family, his is at his bedside at this point, so this one-to-one is not a new one. The one-to-one is for fall and safety precautions as the patient tends to get confused and wonder. Psychiatric consult was called for altered mental status. The patient was admitted on the Emergency Room on 06/29/2017. He has a history of pernicious anemia, iron deficiency, internal hemorrhoid, PUD, hypertension, cataracts and glaucoma, which combined to have him legally blind. This symptoms, he had upon admission were right-sided chest pain and right-sided abdomen flank pain. They did started over the previous 4 days and he has been having periods of altered mental status and speech difficulties. Romansh is his second language, his first language is Creole. The patient indicates he is feeling more comfortable today and his concurs with this. Labs were reviewed. The nurses were interviewed as well as the patient. According to the nurses notes, the patient had his first dose of Risperdal 0.25 mg last night. He slept well and did not have any episodes of agitation, so it appears that this has been helpful. He is calm at the bedside today. Does not appear to be in any distress. PHYSICAL EXAMINATION: VITAL SIGNS: Most recent vital signs include temperature of 98.7, pulse rate of 61, blood pressure of 128/72, respiratory rate of 20 and O2 saturation of 98. LABORATORY DATA: Most recent labs indicate that he continues anemic. Hemoglobin at 9.1, hematocrit 31.4, MCV 73.2, MCH 21.2, MCHC 29, RDW 29.4 and the platelet count was elevated at 522. MENTAL STATUS EXAM: It was difficult to get a full mental status exam from the patient because he was confused. He was pleasant. He was cooperative. His indicates there has been no issues with him. Psychiatrically wanting to hurt himself or anyone else. He kept trying to show me his eye. Evidently, he is going to have cataract surgery upcoming. He appears to be in no imminent danger of hurting himself or anyone else at this time. DIAGNOSTIC IMPRESSION: Rule out dementia, rule out confusion secondary to anemia, pernicious anemia, iron deficiency, internal hemorrhoid, peptic ulcer disease, hypertension, cataract, and glaucoma. PLAN: We will leave the Risperdal 0.25 mg at bedtime as a standing order as it seems to be helpful for the patient and he has not had agitation since. He is cooperative at this time. We will continue to follow. Dorothy Prather APN Robert Mccormack MD MTDVenkatesh
--- NOTE | 2017-07-06 09:45 | PN ---
DATE: 07/05/2017 SUBJECTIVE: The patient is seen and examined at the bedside, sitting on the chair, sometimes feeling shortness of breath; otherwise, no fever, no chills. No nausea, vomiting, or diarrhea. No headache or dizziness. Getting ready for colonoscopy tomorrow, using a preparation. PHYSICAL EXAMINATION VITAL SIGNS: Temperature 98.6, heart rate 79 and blood pressure 139/56. HEENT: Head is normocephalic and atraumatic. Eyes; PERRLA. Extraocular muscles intact. Conjunctivae clear. Nose patent. Mucous membranes moist. NECK: Supple. No carotid bruits. No JVD or thyromegaly. CHEST: Bilaterally symmetrical. HEART: S1 and S2 positive. LUNGS: Clear to auscultation. ABDOMEN: Soft. Bowel sounds positive. No organomegaly. EXTREMITIES: No edema. No cyanosis. NEUROLOGIC: The patient is awake and alert. Moving all 4 extremities. No focal deficits. LABORATORY DATA: White blood cells 6.4, hemoglobin 8.9 and trending down, hematocrit 30.8, and platelets 309. Sodium 140, potassium 3.7, BUN 11 and creatinine 0.9. MEDICATIONS: Aspirin, Cozaar, dextrose, folic acid, hydrochlorothiazide, MiraLax, Risperdal, Protonix and B12. ASSESSMENT AND PLAN: 81-year-old male with anemia, history of hypernatremia, improved; hyperchloremia; and proteinuria, was admitted with severe symptomatic anemia, multiple blood transfusions were given but still hemoglobin is trending down; status post esophagogastroduodenoscopy shows duodenal ulcers, going for colonoscopy tomorrow; history of anxiety and altered mental status, was on one-to-one for a while. Need a brain MRI. The patient has rectal polyp lesions. As per GI, very noncompliant, working on that. Gastrointestinal and deep vein thrombosis prophylaxis. Repeat labs. We will follow up. Danielle Saavedra MD MTDD
[2017-07-06] MEDS: Brimonidine 0.15% 50 DROP/5 ML BOTTLE OU SCH (10:15)
[2017-07-06] MEDS: Dorzolamide 2%/Timolol 0.5% 100 DROP/10 ML BOTTLE OD SCH ×2 (10:16→17:13)
[2017-07-06] MEDS: POLYETHYLENE GLYCOL 3350 17 GM/Dose PACKET PO SCH (10:16)
--- NOTE | 2017-07-06 14:10 | PN ---
DATE: 07/06/2017 REASON FOR CONSULTATION AND FOLLOWUP: Shortness of breath, severe anemia, status post EGD, altered mental status, preop evaluation for endoscopy and GI workup. SUBJECTIVE: The patient is sitting at the bedside. Denies any chest pain, shortness of breath, or any palpitations. OBJECTIVE: GENERAL: Not in apparent distress. Having the breakfast, sitting at the bedside. VITAL SIGNS: Temperature afebrile, heart rate 56, and blood pressure 104/63. HEENT: PERRLA. Extraocular muscles intact. NECK: Supple. No carotid bruits or thyromegaly. CHEST: Clear to auscultation. HEART: S1 and S2 regular. ABDOMEN: Soft. EXTREMITIES: Clubbing and cyanosis negative. LABORATORY DATA: Blood workup as follows; WBC 4.9, hemoglobin 8.2, hematocrit 28.8, and platelet count 178. Chemistry shows sodium 137, potassium 4, chloride 107, carbon dioxide 21, anion gap of 13, BUN 14, and creatinine 0.8. IMPRESSION: Severe anemia, admitting hemoglobin 4, he is status post multiple packed red blood cells transfusion, status post endoscopy. The patient had echocardiography on 06/30/2017 that shows ejection fraction 55% to 60%, right ventricle moderately dilated, moderately reduced right ventricular function, trace aortic regurgitation, no valvular aortic stenosis, [id number] mitral regurgitation, severe tricuspid regurgitation, right ventricular systolic pressure of 80, consistency pulmonary hypertension, bilateral carotid Duplex on 06/30/2017 that shows 20% to 39% bilateral internal carotid artery stenosis not significant. Brain MRI yesterday shows no acute intracranial pathology noted, moderate chronic microangiopathic changes noted related to the age, legally blind, possible dementia. RECOMMENDATIONS: No further cardiac workup is planned. Continue aspirin. Continue losartan. Monitor H and H. Once cleared with GI the patient can be discharged home. CVS status is stable. Thank you Dr. Saavedra, for providing us the opportunity in taking care of the patient, Franco Olson. Katie Faulkner MD
[2017-07-06] MEDS: Latanoprost 2.5 ml Opht Soln OU SCH (21:40)
--- NOTE | 2017-07-06 21:53 | CP.PCM.PN ---
<Josephine Julian - Last Filed: 07/07/17 01:35> Subjective - Date & Time of Evaluation Date of Evaluation: 07/06/17 Time of Evaluation: 09:35 - Subjective Subjective: 81 yr male w/ history of Pernicious anemia, iron deficiency, internal hemorrhoids, PUD, HTN, cataracts, glaucoma, and Legally blind. H/H is now improved from Hgb 4 to 8. Pt still on 1:1 sitter. Continues to have periods of altered mental status and speech that is indiscernible due to language barrier. He appears calm and cooperative at bedside. He is beginning a new bowel prep for colonoscopy due to noncompliance of the first bowel prep. He denies any SOB, N/V, diarrhea, constipation, fever, chills, urinary changes or distress. Objective - Vital Signs/Intake and Output Vital Signs (last 24 hours): Temp Pulse Resp BP Pulse Ox 98.6 F 53 L 18 134/80 100 07/06/17 16:00 07/06/17 16:00 07/06/17 16:00 07/06/17 16:00 07/06/17 16:00 Intake and Output: 07/06/17 07/07/17 18:59 06:59 Intake Total 1560 Output Total 700 Balance 860 - Medications Medications: Current Medications Amlodipine Besylate (Norvasc) 10 mg PO DAILY [facility] Last Admin: 07/06/17 10:16 Dose: 10 mg Aspirin (Aspirin) 325 mg PO DAILY [facility] Last Admin: 07/06/17 10:16 Dose: 325 mg Brimonidine Tartrate (Alphagan P 0.15% Opht) 0 drop OU DAILY [facility] Last Admin: 07/06/17 10:15 Dose: 1 drop Cyanocobalamin (Vitamin B12 1000 Mcg Tab) 1,000 mcg PO DAILY [facility] Last Admin: 07/06/17 10:17 Dose: 1,000 mcg Dorzolamide/Timolol (Cosopt 2%-0.5% Opht) 1 drop OD BID [facility] Last Admin: 07/06/17 17:13 Dose: 1 drop Folic Acid (Folic Acid) 1 mg PO DAILY [facility] Last Admin: 07/06/17 10:16 Dose: 1 mg Hydrochlorothiazide (Microzide) 12.5 mg PO DAILY [facility] Last Admin: 07/06/17 10:16 Dose: 12.5 mg Dextrose/Sodium Chloride (Dextrose 5%/0.9% Ns 1000 Ml) 1,000 mls @ 80 mls/hr IV .[id number] [facility] Last Admin: 07/06/17 04:08 Dose: 80 mls/hr Latanoprost (Xalatan Opht) 0 ml OU HS [facility] Last Admin: 07/05/17 21:22 Dose: 2.5 ml Losartan Potassium (Cozaar) 100 mg PO DAILY [facility] Last Admin: 07/06/17 10:16 Dose: 100 mg Pantoprazole Sodium (Protonix Ec Tab) 40 mg PO 0600 [facility] Last Admin: 07/06/17 05:51 Dose: 40 mg Polyethylene Glycol (Miralax) 17 gm PO DAILY [facility] Last Admin: 07/06/17 10:16 Dose: 17 gm Risperidone (Risperdal Tab) 0.25 mg PO HS [facility] PRN Reason: Protocol Last Admin: 07/05/17 21:22 Dose: 0.25 mg - Labs Labs: 07/06/17 07:00 07/06/17 07:00 PT 14.1 SECONDS (9.4-12.5) H 07/05/17 14:15 INR 1.29 (0.93-1.08) H 07/05/17 14:15 APTT 31.6 Seconds (25.1-36.5) 07/05/17 14:15 - Constitutional Appears: Well - Head Exam Head Exam: ATRAUMATIC, NORMAL INSPECTION, NORMOCEPHALIC - Eye Exam Eye Exam: Normal appearance Pupil Exam: NORMAL ACCOMODATION - ENT Exam ENT Exam: Mucous Membranes Moist - Neck Exam Neck Exam: Full ROM, Normal Inspection. absent: Lymphadenopathy - Respiratory Exam Respiratory Exam: Clear to Ausculation Bilateral, NORMAL BREATHING PATTERN - GI/Abdominal Exam GI & Abdominal Exam: Soft, Normal Bowel Sounds. absent: Tenderness - Back Exam Back Exam: NORMAL INSPECTION - Neurological Exam Neurological Exam: Alert, Awake Neuro motor strength exam: Left Upper Extremity: 5, Right Upper Extremity: 5, Left Lower Extremity: 5, Right Lower Extremity: 5 - Psychiatric Exam Psychiatric exam: Normal Affect, Normal Mood Additional comments: altered mental status. confused. - Skin Skin Exam: Dry, Intact, Normal Color, Warm Assessment and Plan (1) Severe anemia Status: Acute (2) Hypokalemia Status: Acute (3) Dehydration Status: Acute (4) Microalbuminuria Status: Acute (5) Hyperglycemia Status: Acute (6) Thrombocytosis Status: Acute (7) Acute hypernatremia Status: Resolved (8) Right lateral abdominal pain Status: Resolved (9) Right-sided chest pain Status: Resolved (10) HTN (hypertension) Status: Chronic - Assessment and Plan (Free Text) Plan: Prepping for colonoscopy. 1:1 sitter present. GI prophlyaxis, VTE prophlyaxis, Falls precautions, Bleeding precautions. Consulted: GI = Dr. Jacobo - colonoscopy scheduled. Cardio = Dr. Faulkner - no further cardiac workup. asa, losartan, and D/C planning. Psych = Dr. Mccormack - r/o dementia vs. r/o confusion secondary to anemia. Risperdal for HS Reviewed: 07/02 - Endoscopy = Chronic gastritis, biopsied, multiple duodenal ulcers, F/U w. colonoscopy. Brain MRI = WNL, mod chronic microangiopathic changes & mild age related global parenchymal volume loss. CT abd/pelvis = (+) liver lesions Carotid Dopplers = bilateral 20-39% ICA stenosis Abd XRay = (-) NEG bowel obstruction. Mild retained feces predominantly in the right colon. No masses or abnormal calcifications CXR = (-) WNL ECHO = EF 55-60%, severe tricuspid regurgitation, severe pulmonary hypertension ECG = (+) NSR, PAC, diffuse low voltage, no st-t changes, ABNL; unchanged compared with old ekg 01/2016 <Danielle Saavedra - Last Filed: 07/07/17 17:46> Objective - Vital Signs/Intake and Output Vital Signs (last 24 hours): Temp Pulse Resp BP Pulse Ox 97 F L 60 16 123/67 95 07/07/17 13:28 07/07/17 13:28 07/07/17 13:28 07/07/17 13:28 07/07/17 13:28 Intake and Output: 07/07/17 07/07/17 06:59 18:59 Intake Total 1940 Output Total 475 Balance 1940 -475 - Medications Medications: Current Medications Amlodipine Besylate (Norvasc) 10 mg PO DAILY [facility] Last Admin: 07/07/17 09:24 Dose: 10 mg Aspirin (Aspirin) 325 mg PO DAILY [facility] Last Admin: 07/07/17 09:24 Dose: 325 mg Brimonidine Tartrate (Alphagan P 0.15% Opht) 0 drop OU DAILY [facility] Last Admin: 07/07/17 09:26 Dose: 1 drop Cyanocobalamin (Vitamin B12 1000 Mcg Tab) 1,000 mcg PO DAILY [facility] Last Admin: 07/07/17 09:25 Dose: 1,000 mcg Dorzolamide/Timolol (Cosopt 2%-0.5% Opht) 1 drop OD BID [facility] Last Admin: 07/07/17 17:28 Dose: 1 drop Folic Acid (Folic Acid) 1 mg PO DAILY [facility] Last Admin: 07/07/17 09:25 Dose: 1 mg Hydrochlorothiazide (Microzide) 12.5 mg PO DAILY [facility] Last Admin: 07/07/17 09:25 Dose: 12.5 mg Dextrose/Sodium Chloride (Dextrose 5%/0.9% Ns 1000 Ml) 1,000 mls @ 50 mls/hr IV .Q20H [facility] Stop: 07/07/17 23:59 Sodium Chloride (Sodium Chloride 0.9%) 1,000 mls @ 100 mls/hr IV .Q10H [facility] Latanoprost (Xalatan Opht) 0 ml OU HS [facility] Last Admin: 07/06/17 21:40 Dose: 2.5 ml Losartan Potassium (Cozaar) 100 mg PO DAILY [facility] Last Admin: 07/07/17 09:24 Dose: 100 mg Pantoprazole Sodium (Protonix Ec Tab) 40 mg PO 0600 [facility] Last Admin: 07/07/17 06:55 Dose: 40 mg Polyethylene Glycol (Miralax) 17 gm PO DAILY [facility] Last Admin: 07/07/17 09:27 Dose: Not Given Risperidone (Risperdal Tab) 0.25 mg PO HS [facility] PRN Reason: Protocol Last Admin: 07/06/17 21:40 Dose: 0.25 mg Risperidone (Risperdal Tab) 0.25 mg PO BID [facility] PRN Reason: Protocol - Labs Labs: 07/06/17 07:00 07/06/17 07:00 PT 14.1 SECONDS (9.4-12.5) H 07/05/17 14:15 INR 1.29 (0.93-1.08) H 07/05/17 14:15 APTT 31.6 Seconds (25.1-36.5) 07/05/17 14:15 Assessment and Plan - Assessment and Plan (Free Text) Plan: pt is seen and examined at bed side , looking comfortable ,no change of status . agreed all above . getting ready for colonoscopy , is on the bed side . all questions answered
[2017-07-07] MEDS: Pantoprazole 40 mg EC Tab PO SCH (06:55)
[2017-07-07] MEDS ORDERED: Dextrose 5%/0.9% NS 1,000 ML IV SCH (09:07)
[2017-07-07] MEDS ORDERED: Bisacodyl 5mg EC Tab PO ONE (09:13)
[2017-07-07] MEDS: Brimonidine 0.15% 50 DROP/5 ML BOTTLE OU SCH (09:26)
[2017-07-07] MEDS: POLYETHYLENE GLYCOL 3350 17 GM/Dose PACKET PO SCH (09:27)
[2017-07-07] MEDS: Dorzolamide 2%/Timolol 0.5% 100 DROP/10 ML BOTTLE OD SCH ×2 (09:27→17:28)
[2017-07-07] MEDS ORDERED: Simethicone 40 mg/0.6 ml Liquid (30 ml) ONE (11:48)
[2017-07-07] MEDS ORDERED: ePHEDrine 50 mg/ml Inj ONE (11:51)
[2017-07-07] MEDS ORDERED: Propofol 10 mg/ml Inj (20 ML) ONE (11:52)
[2017-07-07] MEDS ORDERED: Etomidate 40 MG/20 ML ML IV ONE (11:52)
[2017-07-07] MEDS ORDERED: Sodium Chloride 0.9% 1,000 ML IV SCH (12:15)
--- NOTE | 2017-07-07 12:59 | PN ---
DATE: 07/07/2017 REASON FOR CONSULTATION: Followup shortness of breath, severe anemia, status post EGD, altered mental status, preop evaluation for colonoscopy. SUBJECTIVE: The patient denies any chest pain. OBJECTIVE: GENERAL: Not in apparent distress. Lying on the bed. Getting IV fluid. Getting already for colonoscopy. VITAL SIGNS: As follows, temperature afebrile, heart rate 60, and blood pressure 120/64. HEENT: PERRLA. Extraocular muscles intact. NECK: Supple. No carotid bruits or thyromegaly. CHEST: Clear to auscultation. HEART: S1 and S2 regular. ABDOMEN: Soft. EXTREMITIES: Clubbing and cyanosis negative. LABORATORY DATA: WBC 4.9, hemoglobin 8.4, hematocrit 28.8, and platelet count 178 as of yesterday. Chemistry as of yesterday 137, potassium 4, chloride 107, carbon dioxide 21, anion gap of 13, BUN 14, and creatinine 0.8. The patient had echocardiography on 06/30/2017 that shows ejection fraction 55% to 60%, RV is mildly dilated, RV systolic function [id number] reduced, trace aortic regurgitation, no aortic stenosis, mild mitral regurgitation, [id number] severe tricuspid regurgitation, RV systolic pressure of 88 consistent with severe pulmonary hypertension, anemia. IMPRESSION: An 81-year-old male legally blind, admitted with rib pain on the right side, severe anemia, atypical chest pain, rule out for myocardial infarction, workup for gastrointestinal bleed is in progress. The patient had endoscopy, going for colonoscopy today. Echo shows preserved left ventricular function, but pulmonary hypertension. RECOMMENDATIONS: The patient is cleared from cardiac point of view to go for colonoscopy. We will cut down fluid to 50 mL an hour. We will follow with you. Repeat the blood workup in the morning. We will try to avoid too much fluid to run into right heart failure as the patient has pulmonary hypertension. The patient is cleared to go for colonoscopy. No contraindication. Because of underlying comorbidity, patient is moderate risk for any invasive procedure. Katie Faulkner MD
[2017-07-07] MEDS: Latanoprost 2.5 ml Opht Soln OU SCH (21:58)
--- NOTE | 2017-07-08 00:12 | PN ---
DATE: SUBJECTIVE: The patient is an 81-year-old male. The patient is seen and examined at the bedside, looking comfortable. No nausea, vomiting, or diarrhea. No hematuria or hematochezia. No swelling of the legs. No chest pain or palpitation. No headache or dizziness. The patient was getting ready to go for colonoscopy. was sitting on the bedside also, all questions answered. PHYSICAL EXAMINATION: VITAL SIGNS: Temperature 97.0, pulse 60, blood pressure 122/67, respiratory rate 16, and pulse oxygenation is 95. HEENT: Head is normocephalic and atraumatic. Eyes; PERRLA. Extraocular muscles intact. Conjunctivae clear. Nose patent. Mucous membranes moist. NECK: Supple. No carotid bruits. No JVD or thyromegaly. CHEST: Bilaterally symmetrical. HEART: S1 and S2 positive. LUNGS: Clear to auscultation. ABDOMEN: Soft. Bowel sounds positive. No organomegaly. EXTREMITIES: No edema. No cyanosis. NEUROLOGIC: The patient is awake and alert. Moving all 4 extremities. No focal deficits. LABORATORY DATA: White blood cell is 4.1, hemoglobin 8.4, hematocrit 28.8, and platelets of 178. Sodium 137, potassium 4.0, BUN 14, creatinine 0.8, and glucose 92. MEDICATIONS: Aspirin, eye drops, Cozaar, dextrose, folic acid, hydrochlorothiazide, got MiraLax, Norvasc, Protonix, Risperdal, NS, and B12. ASSESSMENT AND PLAN: Mr. Franco Olson is an 81-year-old male with leukopenia and anemia. He came with severe anemia, hemoglobin went back to 9.3, now it is trending down, hyperchloremia, proteinuria, went for endoscopy showed duodenitis, now today went for colonoscopy. Helicobacter pylori was negative. rectal mass, diverticulosis, waiting for Dr. Jacobo's input, history of anxiety, and history of blood transfusion. Echocardiography done 06/2017. carotid Doppler of the neck done showed 20% to 39% bilateral internal carotid artery stenosis not significant. Brain MRI noted by me. The patient is legally blind of around one of the eye. According to chief medical technologist, no further cardiac workup planned and continue aspirin and losartan. H and H monitoring. Gastrointestinal and deep venous thrombosis prophylaxis. Repeat labs. Danielle Saavedra MD [facility]
[2017-07-08] MEDS: Pantoprazole 40 mg EC Tab PO SCH (06:24)
[2017-07-08 07:31] LABS: BASO # 0.01 K/mm3 (0.0-2.0); BASO % 0.2 % (0.0-3.0); EOS # 0.2 (0.0-0.7); EOS % 4.4 % (1.5-5.0); GRAN # 2.61 (1.4-6.5); GRAN % 64.4 % (50.0-68.0); HEMOGLOBIN 8.6 g/dL (14.0-18.0); LYMPH # 0.9 (1.2-3.4); LYMPH % 22.4 % (22.0-35.0); MEAN CELL VOLUME 74.3 fl (80.0-105.0); MEAN CORPUSCULAR HEMOGLOBIN 21.3 pg (25.0-35.0); MEAN CORPUSCULAR HGB CONC 28.7 g/dl (31.0-37.0); MONO # 0.4 (0.1-0.6); MONO % 8.6 % (1.0-6.0); PLATELET COUNT 130 10^3/uL (120.0-450.0); RBC 4.04 10^6/uL (3.5-6.1); RED CELL DISTRIBUTION WIDTH 29.6 % (11.5-14.5); WHITE BLOOD COUNT 4.1 10^3/ul (4.5-11.0)
[2017-07-08 07:48] LABS: BLOOD UREA NITROGEN 11 mg/dL (7-21); GFR AFRICAN-AMERICAN > 60; GFR NON-AFRICAN AMERICAN > 60; MAGNESIUM 1.7 mg/dL (1.7-2.2)
[2017-07-08] MEDS: POLYETHYLENE GLYCOL 3350 17 GM/Dose PACKET PO SCH (10:01)
[2017-07-08] MEDS: Brimonidine 0.15% 50 DROP/5 ML BOTTLE OU SCH (10:02)
[2017-07-08] MEDS: Dorzolamide 2%/Timolol 0.5% 100 DROP/10 ML BOTTLE OD SCH ×2 (10:03→17:34)
--- NOTE | 2017-07-08 13:18 | PN ---
DATE: SUBJECTIVE: The patient is an 81-year-old male who appeared to be confused at times and agitated. The patient presently appears to be mildly disoriented, lacking in the tension, talking about going home and coming back. He does not appear to be overtly psychotic, but does appear to be irritable and lacking in insight. He had earlier this stay undergoing a colonoscopy. He has been maintained psychotropically on Risperdal 0.25 mg b.i.d and at bedtime. Blood pressure 122/62, temperature 98.2, respiratory rate 18, and pulse 58. The patient is anemic with hemoglobin of 8.6, hematocrit of 30.0, and white blood count low at 4.1. We will continue monitoring with you. Robert Mccormack MD/ PhD
--- NOTE | 2017-07-08 13:25 | PN ---
DATE: 07/08/2017 LOCATION: The patient is in room 577, bed 1. REASON FOR CONSULTATION AND FOLLOWUP: Shortness of breath, severe anemia, status post EGD, altered mental status, cardiac stratification prior to colonoscopy. SUBJECTIVE: The patient is sitting in chair without any chest pain, shortness of breath, or palpitation. PHYSICAL EXAMINATION: VITAL SIGNS: Blood pressure 122/62, respirations 18, pulse 58, and temperature 98.2. HEENT: Head is normocephalic. Eyes: Pupils are normal. Conjunctivae pale. NECK: JVP low. Carotid equal. THORAX: AP diameter normal. LUNGS: Clear. CARDIOVASCULAR: S1 and S2. ABDOMEN: Soft. No tenderness. No organomegaly. EXTREMITIES: No clubbing. No cyanosis. LABORATORY DATA: WBC 4.1, hemoglobin 8.6, hematocrit 30.0, and platelet 130. Sodium 139, potassium 4.0, BUN 11, creatinine 0.8, calcium 9.0, phosphorus 3.5, magnesium 1.7. DIAGNOSES: Severe anemia, atypical chest pain. Echo shows preserved left ventricular function, pulmonary hypertension present. PLAN: The patient is on aspirin 325 mg p.o. daily as per Dr. Potter, Kike 100 mg daily, folic acid 1 mg daily, hydrochlorothiazide 12.5 daily, Norvasc 10 mg daily, amlodipine 10 mg daily, Protonix 40 daily, IV fluid as ordered. We will continue present therapy. From cardiac point of view, the patient can go for any GI procedure as moderate risk. We will follow with you. Katie Johns MD
--- NOTE | 2017-07-08 14:58 | CP.PCM.CON ---
<Victor Manuel Vitale - Last Filed: 07/08/17 16:19> History of Present Illness - History of Present Illness History of Present Illness: Dandre Vitale DO PGY1 - Dr. Bautista Consult Note CC: Consultation for Rectal polypoid lesion HPI: 81 year old male with PMH of pernicious anemia, iron deficiency, internal hemorrhoids, PUD, HTN, diverticulosis and rectal polyp who presented to hospital complaining of right sided rib pain and atypical chest pain. On admission, patient noted to be severely anemic, with Hgb of 4.0, thrombocytosis , hypernatremia, hypokalemia. Patient was admitted for further evaluation and management of electrolyte abnormality and severe anemia. Patient was transfused 4 units of pRBC. Patients records indicate previous colonoscopy in 2016 showing internal hemorrhoids and polyp that was a tubular adenoma with recommendations for surgical evaluation at that time. Patient did not follow up with recommendations. Review of patient chart indicate history of non-compliance. GI was consulted for investigation of suspected GI bleed. Colonoscopy was preformed showing a 25mm polyp(similar to 2016 report) for which a biopsy was taken, diverticulosis of entire examined colon and internal hemorrhoids. At this time patient is noted to be anemic but hemodynamically stable. Patient denies chest pain, shortness of breath, abdominal pain, nausea, vomiting, fever , chills. Patient denies blood in his stool, melena, bright red blood per rectum , pain with defecation, or incontinence. 12 point ROS system benign otherwise mentioned in HPI. PMH: As above PSH: Denies ALL: NKDA MEDS: MAR Reviewed Soc: Denies tobacco, alcohol, or illicit drug use FMH: Denies PMD: Dr. Dasilva Review of Systems - Review of Systems All systems: reviewed and no additional remarkable complaints except (as mentioned in HPI) Past Patient History - Infectious Disease Hx of Infectious Diseases: None - Tetanus Immunizations Tetanus Immunization: Unknown - Past Medical History & Family History Past Family History: Reviewed and not pertinent - Past Social History Smoking Status: Never Smoked Alcohol: None Drugs: Denies - CARDIAC Hx Hypertension: Yes - PULMONARY Hx Respiratory Disorders: No - NEUROLOGICAL Other/Comment: involuntary tick - HEENT Hx Blind: Yes (Legally blind) Other/Comment: 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 cataracts as per pt and , r eye cataract sx scheduled next month - RENAL Hx Chronic Kidney Disease: No - ENDOCRINE/METABOLIC Hx Endocrine Disorders: No - HEMATOLOGICAL/ONCOLOGICAL Hx Blood Transfusions: Yes Hx Blood Transfusion Reaction: No - INTEGUMENTARY Hx Dermatological Problems: No - MUSCULOSKELETAL/RHEUMATOLOGICAL Hx Musculoskeletal Disorders: Yes - GASTROINTESTINAL Hx Gastroesophageal Reflux: Yes Hx Hemorrhoids: Yes (INTERNAL HEMORRHOIDS) Hx Ulcer: Yes (PUD) - GENITOURINARY/GYNECOLOGICAL Hx Genitourinary Disorders: No - PSYCHIATRIC Hx Emotional Abuse: No Hx Physical Abuse: No Hx Substance Use: No - SURGICAL HISTORY Hx Surgeries: No - ANESTHESIA Hx Anesthesia Reactions: No Hx Malignant Hyperthermia: No Meds Allergies/Adverse Reactions: Allergies Allergy/AdvReac Type Severity Reaction Status Date / Time No Known Allergies Allergy Unverified 11/26/12 01:02 - Medications Medications: Current Medications Amlodipine Besylate (Norvasc) 10 mg PO DAILY [facility] Last Admin: 07/08/17 10:02 Dose: 10 mg Aspirin (Aspirin) 325 mg PO DAILY [facility] Last Admin: 07/08/17 10:01 Dose: 325 mg Brimonidine Tartrate (Alphagan P 0.15% Opht) 0 drop OU DAILY [facility] Last Admin: 07/08/17 10:02 Dose: 1 drop Cyanocobalamin (Vitamin B12 1000 Mcg Tab) 1,000 mcg PO DAILY [facility] Last Admin: 07/08/17 10:01 Dose: 1,000 mcg Dorzolamide/Timolol (Cosopt 2%-0.5% Opht) 1 drop OD BID [facility] Last Admin: 07/08/17 10:03 Dose: 1 drop Folic Acid (Folic Acid) 1 mg PO DAILY [facility] Last Admin: 07/08/17 10:01 Dose: 1 mg Hydrochlorothiazide (Microzide) 12.5 mg PO DAILY [facility] Last Admin: 07/08/17 10:01 Dose: 12.5 mg Sodium Chloride (Sodium Chloride 0.9%) 1,000 mls @ 100 mls/hr IV .Q10H [facility] Last Admin: 07/07/17 21:58 Dose: 100 mls/hr Latanoprost (Xalatan Opht) 0 ml OU HS [facility] Last Admin: 07/07/17 21:58 Dose: 2.5 ml Losartan Potassium (Cozaar) 100 mg PO DAILY [facility] Last Admin: 07/08/17 10:02 Dose: 100 mg Pantoprazole Sodium (Protonix Ec Tab) 40 mg PO 0600 [facility] Last Admin: 07/08/17 06:24 Dose: 40 mg Polyethylene Glycol (Miralax) 17 gm PO DAILY [facility] Last Admin: 07/08/17 10:01 Dose: 17 gm Risperidone (Risperdal Tab) 0.25 mg PO HS [facility] PRN Reason: Protocol Last Admin: 07/07/17 21:57 Dose: 0.25 mg Risperidone (Risperdal Tab) 0.25 mg PO BID [facility] PRN Reason: Protocol Last Admin: 07/08/17 10:01 Dose: 0.25 mg Physical Exam - Constitutional Appears: Non-toxic - Head Exam Head Exam: ATRAUMATIC, NORMAL INSPECTION, NORMOCEPHALIC - Eye Exam Eye Exam: EOMI Additional comments: Conjunctival pallor b/l - ENT Exam ENT Exam: Mucous Membranes Moist - Respiratory Exam Respiratory Exam: Clear to Auscultation Bilateral, NORMAL BREATHING PATTERN. absent: Rales, Rhonchi, Wheezes - Cardiovascular Exam Cardiovascular Exam: REGULAR RHYTHM, +S1, +S2 - GI/Abdominal Exam GI & Abdominal Exam: Normal Bowel Sounds, Soft. absent: Firm, Guarding, Mass, Rigid, Tenderness - Rectal Exam Rectal Exam: Deferred - Extremities Exam Extremities exam: Positive for: pedal pulses present. Negative for: calf tenderness, tenderness - Neurological Exam Neurological exam: Alert, CN II-XII Intact, Normal Gait, Oriented x3 - Psychiatric Exam Psychiatric exam: Normal Affect, Normal Mood - Skin Skin Exam: Dry, Intact Results - Vital Signs Recent Vital Signs: Last Vital Signs Temp 98.2 F 07/08/17 07:00 Pulse 58 L 07/08/17 07:00 Resp 18 07/08/17 07:00 BP 122/62 07/08/17 10:02 Pulse Ox 95 07/08/17 07:00 - Labs Result Diagrams: 07/08/17 07:00 07/08/17 07:00 Labs: Laboratory Results - last 24 hr 07/08/17 07/08/17 07:00 07:00 WBC 4.1 L RBC 4.04 Hgb 8.6 L Hct 30.0 L MCV 74.3 L MCH 21.3 L MCHC 28.7 L RDW 29.6 H Plt Count 130 Gran % 64.4 Lymph % (Auto) 22.4 Rutherford % (Auto) 8.6 H Eos % (Auto) 4.4 Baso % (Auto) 0.2 Gran # 2.61 Lymph # 0.9 L [place]utherford # 0.4 Eos # 0.2 Baso # 0.01 Sodium 139 Potassium 4.0 Chloride 107 Carbon Dioxide 24 Anion Gap 11 BUN 11 Creatinine 0.8 Est GFR ( Amer) > 60 Est GFR (Non-Af Amer) > 60 Random Glucose 77 Calcium 9.0 Phosphorus 3.5 Magnesium 1.7 Assessment & Plan - Assessment and Plan (Free Text) Assessment: 81 year old male with pmh of diverticulosis, PUD, internal hemorrhoids and 25mm polyp found on colonoscopy being evaluated for possible surgical intervention of rectal polyp Plan: - Colonoscopy showing 25mm rectal polyp, biopsy taken, f/u bx results - Previous colonoscopy in 01/2016 showing rectal polyp with bx showing tubular adenoma with patchy high grade dysplasia - GI following - Plan to speak with family regarding surgical intervention in setting of progressive rectal mass with pathology report indicating high grade dysplasia - Plan to discuss potential for surgical intervention with Dr. Michele Ngo PGY1 - Date & Time Date: 07/08/17 Time: 15:07 <Keenan Bautista - Last Filed: 07/08/17 17:30> Meds - Medications Medications: Current Medications Amlodipine Besylate (Norvasc) 10 mg PO DAILY [facility] Last Admin: 07/08/17 10:02 Dose: 10 mg Aspirin (Aspirin) 325 mg PO DAILY [facility] Last Admin: 07/08/17 10:01 Dose: 325 mg Brimonidine Tartrate (Alphagan P 0.15% Opht) 0 drop OU DAILY [facility] Last Admin: 07/08/17 10:02 Dose: 1 drop Cyanocobalamin (Vitamin B12 1000 Mcg Tab) 1,000 mcg PO DAILY [facility] Last Admin: 07/08/17 10:01 Dose: 1,000 mcg Dorzolamide/Timolol (Cosopt 2%-0.5% Opht) 1 drop OD BID [facility] Last Admin: 07/08/17 10:03 Dose: 1 drop Folic Acid (Folic Acid) 1 mg PO DAILY [facility] Last Admin: 07/08/17 10:01 Dose: 1 mg Hydrochlorothiazide (Microzide) 12.5 mg PO DAILY [facility] Last Admin: 07/08/17 10:01 Dose: 12.5 mg Sodium Chloride (Sodium Chloride 0.9%) 1,000 mls @ 100 mls/hr IV .Q10H [facility] Last Admin: 07/07/17 21:58 Dose: 100 mls/hr Latanoprost (Xalatan Opht) 0 ml OU HS [facility] Last Admin: 07/07/17 21:58 Dose: 2.5 ml Losartan Potassium (Cozaar) 100 mg PO DAILY [facility] Last Admin: 07/08/17 10:02 Dose: 100 mg Pantoprazole Sodium (Protonix Ec Tab) 40 mg PO 0600 [facility] Last Admin: 07/08/17 06:24 Dose: 40 mg Polyethylene Glycol (Miralax) 17 gm PO DAILY [facility] Last Admin: 07/08/17 10:01 Dose: 17 gm Risperidone (Risperdal Tab) 0.25 mg PO HS [facility] PRN Reason: Protocol Last Admin: 07/07/17 21:57 Dose: 0.25 mg Risperidone (Risperdal Tab) 0.25 mg PO BID [facility] PRN Reason: Protocol Last Admin: 07/08/17 10:01 Dose: 0.25 mg Results - Vital Signs Recent Vital Signs: Last Vital Signs Temp 98.2 F 07/08/17 07:00 Pulse 58 L 07/08/17 07:00 Resp 18 07/08/17 07:00 BP 122/62 07/08/17 10:02 Pulse Ox 95 07/08/17 07:00 - Labs Result Diagrams: 07/08/17 07:00 07/08/17 07:00 Labs: Laboratory Results - last 24 hr 07/08/17 07/08/17 07:00 07:00 WBC 4.1 L RBC 4.04 Hgb 8.6 L Hct 30.0 L MCV 74.3 L MCH 21.3 L MCHC 28.7 L RDW 29.6 H Plt Count 130 Gran % 64.4 Lymph % (Auto) 22.4 Rutherford % (Auto) 8.6 H Eos % (Auto) 4.4 Baso % (Auto) 0.2 Gran # 2.61 Lymph # 0.9 L [place] # 0.4 Eos # 0.2 Baso # 0.01 Sodium 139 Potassium 4.0 Chloride 107 Carbon Dioxide 24 Anion Gap 11 BUN 11 Creatinine 0.8 Est GFR ( Amer) > 60 Est GFR (Non-Af Amer) > 60 Random Glucose 77 Calcium 9.0 Phosphorus 3.5 Magnesium 1.7 Assessment & Plan - Assessment and Plan (Free Text) Assessment: Severe Recurrent GI Bleeding Etiology presumptively Gastroduodenal Ulceration Secondary Rectal 25mm adenoma(W Dysplasia poss CA) Amandeep PPI/ Discontinuation ASA/Trans anal rectal villous excision Pt not fully competent is still refusing further R Family to be informed This consult done under my direct supervision Sailaja Bautista MD FACS
[2017-07-08 17:49] VITALS: RESP 20
[2017-07-08] MEDS: Latanoprost 2.5 ml Opht Soln OU SCH (22:59)
--- NOTE | 2017-07-09 03:25 | PN ---
DATE: 07/08/2017 SUBJECTIVE: This patient was seen and evaluated earlier today. The patient is tolerating the diet, comfortable, no bleeding. PHYSICAL EXAMINATION: VITAL SIGNS: Temperature is 97.8, pulse is 60, blood pressure is 128/77. HEENT: Atraumatic. Anicteric. NECK: Supple. HEART: S1 and S2 heard. LUNGS: Bilateral air entry present. ABDOMEN: Soft. There is no tenderness. LABORATORY DATA: Hemoglobin 8.6, hematocrit 30, WBC is 4.1, platelets 130. BUN 11, creatinine 0.6. IMPRESSION: This is an 81-year-old patient admitted with severe anemia, hemoglobin of 4.5, status post transfusion, his hemoglobin is stable. The patient has a large duodenal ulcer present. Most likely, that is the cause of the bleeding. The patient also has a rectal lesion, polypoid lesion in the rectum very close to the anal verge, and the biopsy showed rectal adenocarcinoma. I discussed with the patient's yesterday who had discussed with the patient's daughter and the patient did not want to go through any surgical intervention. I did discuss with Dr. Saavedra at length. Follow up of the hemoglobin and hematocrit. Continue proton pump inhibitors. Thank you very much for allowing us to participate in the care of the patient. Cl Jacobo MD MTDVenkatesh
--- NOTE | 2017-07-09 03:30 | DS ---
CHIEF COMPLAINT: Not feeling well. HISTORY OF PRESENT ILLNESS: Mr. Olson is an 81-year-old male with history of anemia, iron deficiency, internal hemorrhoids, peptic ulcer disease, hypertension, cataract and glaucoma, legally blind, history of anemia in the past, last hemoglobin done six years ago, came to the Emergency Room with the with right-sided chest pain, right-sided abdominal flank pain. He reports that pain was waxing and waning over the last 3 to 4 days. He stated that at this time last year, I was here at [facility] getting blood because of drop of hemoglobin. The patient has periods of altered mental status and speech that is indiscriminable due to the language barrier. His first language is Creole. He denies any shortness of breath. No nausea or vomiting or diarrhea. We admitted the patient. Hemoglobin was very low. We infused a couple of packed RBC's, hemoglobin went to 9 and then was trending down again. Echocardiography done. CAT scan of the abdomen and pelvis done. Endoscopy done by Dr. Jacobo. Colonoscopy is done also. The patient want to go home, even from couple of days ago, he was not agreeing for colonoscopy. We have to involve the whole family and educate him. He needs colonoscopy because his last colonoscopy was in last year, that shows dysplastic lesion in the rectum. Dr. Bernal said there is consult called, but the patient left home and plan was to see Dr. Bernal, he needs surgery as an outpatient, but the patient never showed up at Dr. Bernal's office even he called many times, even he stopped coming in my office, now at this time, he came with hemoglobin 4 and then we convinced him to go for colonoscopy. Biopsy done by Dr. Stewart. The results came adenocarcinoma and now the patient was informed. Discussion done in his own language with the translation with Laura ROLAND nurse and talked to the patient's daughter, Cass, phone number [phone] to convince them that he needed surgery, to educate him, but he refused. I spoke to the patient, Laura nurse spoke to the patient, daughter Cass spoke to the patient, I spoke to Cass and nurse spoke to Cass to explain to her. Cass told me that if he said no, his 12 children and his cannot convince him to go for surgery, but he promise he will go home and will come back in the office and will think about outpatient procedure because treatment was not complete. We let him go against medical advice. PAST MEDICAL HISTORY: Altered mental status, history of anemia, internal hemorrhoids, peptic ulcer disease, hypertension, cataract and glaucoma, legally blind, history of anemia, status post blood transfusion in the past. HABITS: Never smoked. No drug. No ethanol. FAMILY HISTORY: Father and mother noncontributory. REVIEW OF SYSTEMS: The patient seen and examined on the bedside, looking comfortable. No nausea or vomiting. No diarrhea. No hematuria or hematochezia. No headache or dizziness. No chest pain or palpitation. PHYSICAL EXAMINATION: VITAL SIGNS: Temperature is 97.8, pulse 60, blood pressure 128/77 and respiratory rate 20. HEAD: Normocephalic and atraumatic. Eyes; PERRLA. Extraocular muscles intact. Conjunctivae clear. Nose patent. Mucous membranes moist. NECK: Supple. No carotid bruits. No JVD or thyromegaly. CHEST: Bilaterally symmetrical. HEART: S1 and S2 positive. LUNGS: Clear to auscultation. ABDOMEN: Soft. Bowel sounds positive. No organomegaly. EXTREMITIES: No edema. No cyanosis. NEUROLOGIC: The patient is awake and alert. Moving all 4 extremities. No focal deficits. LABORATORY DATA: White blood cell is 4.1, hemoglobin 8.6, hematocrit 30.3 and platelets 130. Sodium 139, potassium 4.0, BUN 11 and creatinine 0.8. ASSESSMENT AND PLAN: Mr. Franco Olson is an 81-year-old male came in with symptomatic severe anemia, hemoglobin 4, packed red blood cells done. Hemoglobin went up to 9.3, then trending down, dropped to 8.6. Hyperchloremia, proteinuria. Now, the patient has rectal adenocarcinoma. Surgical consult followed with Dr. Keenan Bautista. The patient has history of internal hemorrhoids, peptic ulcer disease, hypertension, diverticulosis, has gastroduodenal ulceration, rectal adenoma 25-mm with dysplasia and possibly carcinoma. Recommended discontinue aspirin, and needed surgery. Discussion done with the family. Spoke to the patient's daughter Cass, phone number [phone] and treatment plan made. The patient was seen by Dr. Mccormack also for mentally competent. Dr. Johns to make the patient prepare for surgery, but the patient left against medical advice and promised he will come back for treatment. Danielle Saavedra MD
[2017-07-09] MEDS: Pantoprazole 40 mg EC Tab PO SCH (05:43)
--- NOTE | 2017-07-09 07:51 | CP.PCM.PN ---
Subjective - Date & Time of Evaluation Date of Evaluation: 07/09/17 (`) Time of Evaluation: 06:35 - Subjective Subjective: Yulia Vitale PGY1 - GENERAL SURGERY PROGRESS NOTE FOR DR. BAUTISTA Patient seen and examined this AM. No acute events reported overnight. No complaints at this time. Denies headache, chest pain, shortness of breath, dizziness, abdominal discomfort, nausea, vomiting, fever, chills. Reports passing gas and bm. Objective - Vital Signs/Intake and Output Vital Signs (last 24 hours): Temp Pulse Resp BP Pulse Ox 99.1 F 59 L 20 119/64 100 07/09/17 00:00 07/09/17 00:00 07/09/17 00:00 07/09/17 00:00 07/09/17 00:00 Intake and Output: 07/09/17 07/09/17 06:59 18:59 Intake Total 270 Output Total 600 Balance -330 - Medications Medications: Current Medications Amlodipine Besylate (Norvasc) 10 mg PO DAILY [facility] Last Admin: 07/08/17 10:02 Dose: 10 mg Aspirin (Aspirin) 325 mg PO DAILY [facility] Last Admin: 07/08/17 10:01 Dose: 325 mg Brimonidine Tartrate (Alphagan P 0.15% Opht) 0 drop OU DAILY [facility] Last Admin: 07/08/17 10:02 Dose: 1 drop Cyanocobalamin (Vitamin B12 1000 Mcg Tab) 1,000 mcg PO DAILY [facility] Last Admin: 07/08/17 10:01 Dose: 1,000 mcg Dorzolamide/Timolol (Cosopt 2%-0.5% Opht) 1 drop OD BID [facility] Last Admin: 07/08/17 17:34 Dose: 1 drop Folic Acid (Folic Acid) 1 mg PO DAILY [facility] Last Admin: 07/08/17 10:01 Dose: 1 mg Hydrochlorothiazide (Microzide) 12.5 mg PO DAILY [facility] Last Admin: 07/08/17 10:01 Dose: 12.5 mg Sodium Chloride (Sodium Chloride 0.9%) 1,000 mls @ 100 mls/hr IV .Q10H [facility] Last Admin: 07/07/17 21:58 Dose: 100 mls/hr Latanoprost (Xalatan Opht) 0 ml OU HS [facility] Last Admin: 07/08/17 22:59 Dose: 2.5 ml Losartan Potassium (Cozaar) 100 mg PO DAILY [facility] Last Admin: 07/08/17 10:02 Dose: 100 mg Pantoprazole Sodium (Protonix Ec Tab) 40 mg PO 0600 [facility] Last Admin: 07/09/17 05:43 Dose: 40 mg Polyethylene Glycol (Miralax) 17 gm PO DAILY [facility] Last Admin: 07/08/17 10:01 Dose: 17 gm Risperidone (Risperdal Tab) 0.25 mg PO HS [facility] PRN Reason: Protocol Last Admin: 07/08/17 22:57 Dose: 0.25 mg Risperidone (Risperdal Tab) 0.25 mg PO BID [facility] PRN Reason: Protocol Last Admin: 07/08/17 17:33 Dose: 0.25 mg - Labs Labs: 07/08/17 07:00 07/08/17 07:00 PT 14.1 SECONDS (9.4-12.5) H 07/05/17 14:15 INR 1.29 (0.93-1.08) H 07/05/17 14:15 APTT 31.6 Seconds (25.1-36.5) 07/05/17 14:15 - Constitutional Appears: Non-toxic, No Acute Distress - Head Exam Head Exam: ATRAUMATIC, NORMAL INSPECTION, NORMOCEPHALIC - Eye Exam Eye Exam: EOMI, PERRL - ENT Exam ENT Exam: Mucous Membranes Moist - Respiratory Exam Respiratory Exam: Clear to Ausculation Bilateral, NORMAL BREATHING PATTERN. absent: Rales, Rhonchi, Wheezes - Cardiovascular Exam Cardiovascular Exam: REGULAR RHYTHM, +S1, +S2. absent: JVD - GI/Abdominal Exam GI & Abdominal Exam: Soft, Normal Bowel Sounds. absent: Guarding, Rigid, Tenderness - Extremities Exam Extremities Exam: absent: Calf Tenderness, Pedal Edema - Neurological Exam Neurological Exam: Alert, Awake - Psychiatric Exam Psychiatric exam: Normal Affect, Normal Mood - Skin Skin Exam: Dry, Intact. absent: Rash Assessment and Plan - Assessment and Plan (Free Text) Assessment: 81 year old male with pmh of diverticulosis, PUD, internal hemorrhoids, duodenal ulcers and 25mm polyp found on colonoscopy being evaluated and followed for possible trans anal rectal villous excision Plan: - Colonoscopy showing 25mm rectal polyp, biopsy taken, f/u bx results - Previous colonoscopy in 01/2016 showing rectal polyp with bx showing tubular adenoma with patchy high grade dysplasia - Recommend trans anal rectal villous excision - Spoke with family regarding findings of adenocarcinoma from biopsy of rectal polyp - Surgical options discussed with patient and family - Patient is refusing surgical intervention at this time and states he will follow up outpatient with Dr. Bautista - Will Discuss with Dr. Michele Ngo PGY1
[2017-07-09 08:04] VITALS: PULSE 67; TEMP 99; O2SAT 94
[2017-07-09] MEDS: Brimonidine 0.15% 50 DROP/5 ML BOTTLE OU SCH (10:23)
[2017-07-09] MEDS: POLYETHYLENE GLYCOL 3350 17 GM/Dose PACKET PO SCH (10:25)
[2017-07-09] MEDS: Dorzolamide 2%/Timolol 0.5% 100 DROP/10 ML BOTTLE OD SCH ×2 (10:27→10:28)
[2017-07-09 10:30] VITALS: BP 130/70
--- NOTE | 2017-07-09 10:57 | CP.PCM.PN ---
Subjective - Date & Time of Evaluation Date of Evaluation: 07/09/17 Time of Evaluation: 10:46 - Subjective Subjective: House Physician Resident Andrew Connor, PGY-2 IM Called by nursing to bedside, patient and family wanted patient to leave against medical advice (AMA). As per Nursing, Dr. Mccormack (Psych) determined that the patient lacked capacity, so family would need to make decision and sign for AMA. Also as per Nursing, PMD (Dr. Saavedra) is aware of patient's and family's desire to leave, will not medically clear, but states that patient may leave against medical advice. Attempted to discuss with patient's spouse, who insisted that I speak with her daughter instead. Spoke with daughter Pricilla over the phone, and make her aware of risks of leaving against medical advice, including worsening of colonic polyp highly concerning for cancer, worsening of anemia, possible shock, and . Informed her of her father's lack of capacity, and stated that if her mother wished to take him home, she needed to understand the risks of him leaving against medical advice so that she could sign the form for him. Daughter discussed with her mother (patient's spouse), who expressed understanding of patient's condition, but still elected to have him leave against medical advice. AMA paperwork filled out, signed by myself, patient's spouse, and witnessing nurse. Patient then left AMA. Objective - Vital Signs/Intake and Output Vital Signs (last 24 hours): Temp Pulse Resp BP Pulse Ox 99.0 F 67 20 130/70 94 L 07/09/17 07:30 07/09/17 07:30 07/09/17 07:30 07/09/17 10:24 07/09/17 07:30 Intake and Output: 07/09/17 07/09/17 06:59 18:59 Intake Total 270 400 Output Total 600 200 Balance -330 200 - Medications Medications: Current Medications Amlodipine Besylate (Norvasc) 10 mg PO DAILY [facility] Last Admin: 07/09/17 10:24 Dose: 10 mg Aspirin (Aspirin) 325 mg PO DAILY [facility] Last Admin: 07/09/17 10:23 Dose: 325 mg Brimonidine Tartrate (Alphagan P 0.15% Opht) 0 drop OU DAILY [facility] Last Admin: 07/09/17 10:23 Dose: 1 drop Cyanocobalamin (Vitamin B12 1000 Mcg Tab) 1,000 mcg PO DAILY [facility] Last Admin: 07/09/17 10:25 Dose: 1,000 mcg Dorzolamide/Timolol (Cosopt 2%-0.5% Opht) 1 drop OD BID [facility] Last Admin: 07/09/17 10:28 Dose: 1 drop Folic Acid (Folic Acid) 1 mg PO DAILY [facility] Last Admin: 07/09/17 10:25 Dose: 1 mg Hydrochlorothiazide (Microzide) 12.5 mg PO DAILY [facility] Last Admin: 07/09/17 10:24 Dose: 12.5 mg Sodium Chloride (Sodium Chloride 0.9%) 1,000 mls @ 100 mls/hr IV .Q10H [facility] Last Admin: 07/07/17 21:58 Dose: 100 mls/hr Latanoprost (Xalatan Opht) 0 ml OU HS [facility] Last Admin: 07/08/17 22:59 Dose: 2.5 ml Losartan Potassium (Cozaar) 100 mg PO DAILY [facility] Last Admin: 07/09/17 10:24 Dose: 100 mg Pantoprazole Sodium (Protonix Ec Tab) 40 mg PO 0600 [facility] Last Admin: 07/09/17 05:43 Dose: 40 mg Polyethylene Glycol (Miralax) 17 gm PO DAILY [facility] Last Admin: 07/09/17 10:25 Dose: 17 gm Risperidone (Risperdal Tab) 0.25 mg PO HS [facility] PRN Reason: Protocol Last Admin: 07/08/17 22:57 Dose: 0.25 mg Risperidone (Risperdal Tab) 0.25 mg PO BID [facility] PRN Reason: Protocol Last Admin: 07/09/17 10:29 Dose: 0.25 mg - Labs Labs: 07/08/17 07:00 07/08/17 07:00 PT 14.1 SECONDS (9.4-12.5) H 07/05/17 14:15 INR 1.29 (0.93-1.08) H 07/05/17 14:15 APTT 31.6 Seconds (25.1-36.5) 07/05/17 14:15
--- NOTE | 2017-07-09 14:44 | PN ---
DATE: 07/09/2017 He is being seen today in a followup consultation. PRESENTATION: The patient is an 81-year-old male, seen at his hospital bed in accompany of Dr. Mccormack. The patient originally was referred to Psychiatry due to altered mental status. He presented to the emergency room with his on 06/30/2017 after complaining of right-sided chest pain and right-side abdominal flank pain and was admitted. During the course of his admission, he has been found to have colonic polyp, however, concerning of cancer. He has a worsening of anemia, and he needs surgery to take care of this. The patient adamantly does not want surgery. He does not appear to understand the ramifications of not having surgery, which is certainly a worsening of his condition and . When seen, he repeats over and over again, he has things to do when he gets home. He is unable to say what they are. He indicates that the 15th is a better day for surgery, but was unable to expound on why that might be. In review of the nurse's notes and another documents available, the patient has been refusing surgery, and at this point, his family is supportive of this. The patient does not appear to be cognizant of the seriousness of his current condition in order to make a good medical decision for himself. He appears to ____ capacity. This information was really to the nursing and medical team. We will continue to follow. Please call, if there are any further issues with this patient. Dorothy Prather APN Robert Mccormack MD SUPA
--- NOTE | 2017-07-10 09:09 | CP.PCM.PCO ---
Physician Communication Note - Physician Communication Note Physician Communication Note: Rectal CA/Needs surgery/Pt signed AMA-son to help!
== END 2017-07-09 12:41 | disposition left against medical advice (07) | DRG 374 ==
LOC: ED 13:07 → ERH 21:17 → 3RSO 06-30 04:31 → 5RSO 07-03 11:11
PROVIDERS: ADMIT Internal Medicine; ATTEND Internal Medicine
PROC: 30233N1 Transfusion of Nonautologous Red Blood Cells into Peripheral Vein, Percutaneous Approach (ICD-10-PCS; 2017-06-30)
PROC: 0DB68ZX Excision of Stomach, Via Natural or Artificial Opening Endoscopic, Diagnostic (ICD-10-PCS; principal; 2017-07-02 14:30)
PROC: 0DBP8ZX Excision of Rectum, Via Natural or Artificial Opening Endoscopic, Diagnostic (ICD-10-PCS; 2017-07-07)
DX: C20 Malignant neoplasm of rectum (principal); D50.0 Iron deficiency anemia secondary to blood loss (chronic); E87.0 Hyperosmolality and hypernatremia; K56.2 Volvulus; I27.20 Pulmonary hypertension, unspecified; K26.9 Duodenal ulcer, unspecified as acute or chronic, without hemorrhage or perforation; I08.1 Rheumatic disorders of both mitral and tricuspid valves; E87.8 Other disorders of electrolyte and fluid balance, not elsewhere classified; D51.0 Vitamin B12 deficiency anemia due to intrinsic factor deficiency; E86.0 Dehydration; H54.8 Legal blindness, as defined in USA; E87.6 Hypokalemia; I10 Essential (primary) hypertension; K21.9 Gastro-esophageal reflux disease without esophagitis; K57.30 Diverticulosis of large intestine without perforation or abscess without bleeding; I65.23 Occlusion and stenosis of bilateral carotid arteries; F41.9 Anxiety disorder, unspecified; R07.81 Pleurodynia; K29.80 Duodenitis without bleeding; R80.9 Proteinuria, unspecified; K64.8 Other hemorrhoids; K29.50 Unspecified chronic gastritis without bleeding; H26.9 Unspecified cataract; H40.9 Unspecified glaucoma; Z86.010 Personal history of colon polyps; Z91.19 Patient's noncompliance with other medical treatment and regimen

== ENCOUNTER 2017-12-02 12:41 | Inpatient (IN) | payer MEDICARE ==
[2017-12-02 12:42] VITALS: BMI 24.3
--- NOTE | 2017-12-02 13:28 | ED PDOC ---
Arrival/HPI - General Chief Complaint: Seizure Time Seen by Provider: 12/02/17 12:45 Historian: Patient, Spouse - History of Present Illness Narrative History of Present Illness (Text): 12/02/17 13:18 Patient is a 82 year old male whose past medical history includes rectal mass adenocarcinoma, and who presents to the Emergency department by EMS complaining of experiencing a near syncopal event. Patient is present with his and primarily speaks Creole, translation was provided by Pop Batres from [employer]. Patient reports that while waiting for the bus his lower extremity suddenly started to feel weak. His managed to sit the patient down, gave him water, and called EMS. His states that she believed his blood pressure was low and during the episode he appeared alert but unresponsive. Patient's states that he slowly improved, and denies that patient lost consciousness, fell, or experienced convulsions. At home patient eats normally but doesn't drink plenty of fluids. Patient denies any fever, cough, chest pain , shortness pain, abdominal pain, nausea, vomiting, diarrhea, urinary issues, headache, or biting his tongue. Patient also denies any previous episodes of near syncope. 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 as per pt and , r eye cataract sx scheduled next month - Renal Hx Renal Disorder: No - Endocrine/Metabolic Hx Endocrine Disorders: No - Hematological/Oncological Hx Blood Transfusions: Yes - Integumentary Hx Dermatological Disorder: No - Musculoskeletal/Rheumatological Hx Musculoskeletal Disorders: Yes - Gastrointestinal Hx Gastroesophageal Reflux: Yes Hx Hemorrhoids: Yes (INTERNAL HEMORRHOIDS) - Genitourinary/Gynecological Hx Genitourinary Disorders: No - Psychiatric Hx Psychophysiologic Disorder: No Hx Substance Use: No - Anesthesia Hx Anesthesia Reactions: No Hx Malignant Hyperthermia: No - Suicidal Assessment Feels Threatened In Home Enviroment: No Family/Social History - Physician Review Nursing Documentation Reviewed: Yes Family/Social History: No Known Family HX Smoking Status: Never Smoked Hx Alcohol Use: No Hx Substance Use: No Allergies/Home Meds Allergies/Adverse Reactions: Allergies No Known Allergies Allergy (Unverified 11/26/12 01:02) Home Medications: Home Meds Medication Instructions Recorded Confirmed Unobtainable 07/06/17 12/02/17 Review of Systems - Physician Review All systems were reviewed & negative as marked: Yes - Review of Systems Constitutional: absent: Fevers, Night Sweats Respiratory: absent: SOB, Cough Cardiovascular: absent: Chest Pain Gastrointestinal: absent: Abdominal Pain, Diarrhea, Nausea, Vomiting Genitourinary Male: Normal Neurological: absent: Headache, Dizziness Physical Exam Vital Signs Reviewed: Yes Vital Signs Temp Pulse Resp BP Pulse Ox 12/02/17 14:18 76 19 133/54 L 100 12/02/17 13:24 98.0 F 74 18 111/62 93 L Temperature: Afebrile Blood Pressure: Normal Pulse: Regular Respiratory Rate: Normal Appearance: Positive for: Well-Appearing Mental Status: Positive for: Alert and Oriented X 3 - Systems Exam Head: Present: Atraumatic, Normocephalic Pupils: Present: PERRL Extroacular Muscles: Present: EOMI Conjunctiva: Present: Normal Mouth: Present: Moist Mucous Membranes Neck: Present: Normal Range of Motion Respiratory/Chest: Present: Clear to Auscultation, Good Air Exchange. No: Respiratory Distress, Accessory Muscle Use Cardiovascular: Present: Regular Rate and Rhythm, Normal S1, S2. No: Murmurs Abdomen: No: Tenderness, Distention, Peritoneal Signs Rectal: Present: Occult Blood (guaiac (+)), Melena. No: Hemorrhoids Back: Present: Normal Inspection Upper Extremity: Present: Normal Inspection. No: Cyanosis, Edema Lower Extremity: Present: Normal Inspection. No: Edema Neurological: Present: GCS=15, CN II-XII Intact, Speech Normal Skin: Present: Warm, Dry, Normal Color. No: Rashes Psychiatric: Present: Alert, Oriented x 3, Normal Insight, Normal Concentration Medical Decision Making ED Course and Treatment: 12/02/17 13:31 Impression: Patient is a 82 year old male who was brought to the Emergency department by EMS and experienced an episode of near syncope. Differential Diagnosis included but are not limited to: Near syncope, GI bleeding, and Anemia. Plan: --Labs --cardiac enzymes --EKG --chest X-ray --Urinalysis --Head CT without contrast --Reassess and disposition Prior Visits: Notes and results from previous visits were reviewed. Patient was last seen in the emergency department on 06/29/17 for Right-sided chest pain, Acute hypernatremia, and Right lateral abdominal pain and was hospitalized. Progress Notes: 12/02/17 14:21 CT Head without Contrast: Creator : Hardy Joiner MD IMPRESSION: No acute findings 12/02/17 14:23 Chest X-ray shows no acute infiltrates. Interpreted by me. 12/02/17 14:25 Translation for patient was provided. Explained risk factors associated with blood transfusion and alternatives. Patient agreed to transfusion and Sayda STOLL cosigned the note. Translation via [employer] [id number] 12/02/17 14:37 Case discussed with ,who is aware and accepts patient to her service and wants for GI and for surgery. 12/02/17 14:47 Case discussed with , who is aware of the patient and recommends starting patient on Protonix drip. 12/02/17 15:16 EKG: NSR at [address] elevations, PAC Case discussed with Dr. Babb, ICU who will accept the case to his service. Case discussed with Project Designer for Dr. Bautista. consult. - Critical Care Critical Care Minutes: 45 minutes - Lab Interpretations Lab Results: 12/02/17 13:18 12/02/17 13:18 Lab Results 12/02/17 13:18: Sodium 144, Potassium 4.6, Chloride 108 H, Carbon Dioxide 22, Anion Gap 19, BUN 15, Creatinine 0.8, Est GFR ( Amer) > 60, Est GFR (Non- Af Amer) > 60, Random Glucose 96, Calcium 8.8, Magnesium 2.2, Total Bilirubin 0.2, AST 22, ALT 31, Alkaline Phosphatase 43, Lactate Dehydrogenase 435, Total Creatine Kinase 44, Troponin I < 0.01, Total Protein 6.2, Albumin 3.6, Globulin 2.5, Albumin/Globulin Ratio 1.4 12/02/17 13:18: WBC 8.7 D, RBC 2.11 L, Hgb 4.8 L* D, Hct 16.6 L*, MCV 78.7 L D , MCH 22.7 L, MCHC 28.9 L, RDW 18.2 H, Plt Count 261, MPV 12.7 H, Gran % 76.1 H , Lymph % (Auto) 16.6 L, Weakley % (Auto) 5.0, Eos % (Auto) 1.7, Baso % (Auto) 0.6 , Gran # 6.63 H, Lymph # (Auto) 1.5, Weakley # (Auto) 0.4, Eos # (Auto) 0.2, Baso # (Auto) 0.05, Neutrophils % (Manual) 84 H, Lymphocytes % (Manual) 10 L, Monocytes % (Manual) 4, Eosinophils % (Manual) 2, Platelet Evaluation Normal, Large Platelets Present, Giant Platelets Present, Hypochromasia 2+, Poikilocytosis (manual 1+, Anisocytosis (manual) 1+, Microcytosis (manual) 1+, Target Cells Slight, Tear Drop Cells Slight, Ovalocytes Slight I have reviewed the lab results: Yes - RAD Interpretation Radiology Orders: 12/02/17 13:18 HEAD W/O CONTRAST [CT] Stat CHEST PORTABLE [RAD] Stat 12/02/17 15:16 ABD & PELVIS W/O PO OR IV CONT [CT] Stat Glue Size Machine Operator: ED Physician, Radiologist - Medication Orders Current Medication Orders: Pantoprazole Sodium (Protonix 40mg Ivpb) 40 mg in 100 mls @ 20 mls/hr IVPB .Q5H [facility] - Scribe Statement The provider has reviewed the documentation as recorded by the Melissaibwale Banks Provider Scribe Attestation: All medical record entries made by the Melissaibe were at my direction and personally dictated by me. I have reviewed the chart and agree that the record accurately reflects my personal performance of the history, physical exam, medical decision making, and the department course for this patient. I have also personally directed, reviewed, and agree with the discharge instructions and disposition. Disposition/Present on Arrival - Present on Arrival Any Indicators Present on Arrival: No History of DVT/PE: No History of Uncontrolled Diabetes: No Urinary Catheter: No History of Decub. Ulcer: No History Surgical Site Infection Following: None - Disposition Have Diagnosis and Disposition been Completed?: Yes Diagnosis: Severe anemia, Guaiac positive stools, GI bleed Disposition: HOSPITALIZED Disposition Time: 15:18 Patient Plan: Admission Condition: CRITICAL Forms: [facility] [employer] [facility] ([place])
[2017-12-02 13:35] LABS: BASO # 0.05 K/mm3 (0.0-2.0); BASO % 0.6 % (0.0-3.0); EOS # 0.2 (0.0-0.7); EOS % 1.7 % (1.5-5.0); GRAN # 6.63 (1.4-6.5); GRAN % 76.1 % (50.0-68.0); LYMPH # 1.5 (1.2-3.4); LYMPH % 16.6 % (22.0-35.0); MEAN CELL VOLUME 78.7 fl (80.0-105.0); MEAN CORPUSCULAR HEMOGLOBIN 22.7 pg (25.0-35.0); MEAN CORPUSCULAR HGB CONC 28.9 g/dl (31.0-37.0); MEAN PLATELET VOLUME 12.7 fl (7.0-11.0); MONO # 0.4 (0.1-0.6); PLATELET COUNT 261 10^3/uL (120.0-450.0); RBC 2.11 10^6/uL (3.5-6.1); RED CELL DISTRIBUTION WIDTH 18.2 % (11.5-14.5); WHITE BLOOD COUNT 8.7 10^3/ul (4.5-11.0)
[2017-12-02 13:45] LABS: ALB/GLOB RATIO 1.4 (1.1-1.8); ALBUMIN 3.6 g/dL (3.0-4.8); ALT/SGPT 31 U/L (7-56); AST/SGOT 22 U/L (17-59); BLOOD UREA NITROGEN 15 mg/dL (7-21); CALCIUM 8.8 mg/dL (8.4-10.5); GFR AFRICAN-AMERICAN > 60; GFR NON-AFRICAN AMERICAN > 60; HEMOGLOBIN 4.8 g/dL (14.0-18.0)
[2017-12-02 13:55] LABS: TROPONIN I < 0.01 ng/mL
[2017-12-02 14:17] LABS: ANISOCYTOSIS 1+; EOSINOPHIL 2 % (0.0-3.0); HYPOCHROMIA 2+; LYMPHOCYTE 10 % (22.0-35.0); MICROCYTOSIS 1+; MONOCYTE 4 % (1.0-6.0); NEUTROPHIL 84 % (50.0-70.0); PLATELET ESTIMATE NORMAL (NORMAL); POIKILOCYTOSIS 1+
[2017-12-02 14:18] LABS: GIANT PLATELETS PRESENT; LARGE PLATELETS PRESENT; OVALOCYTES SLIGHT; TARGET CELLS SLIGHT; TEAR DROP CELLS SLIGHT
--- NOTE | 2017-12-02 14:18 | CT ---
PROCEDURE: CT HEAD WITHOUT CONTRAST. HISTORY: near syncope COMPARISON: None available. TECHNIQUE: Axial computed tomography images were obtained through the head/brain without intravenous contrast. Radiation dose: Total exam DLP = 946 mGy-cm. This CT exam was performed using one or more of the following dose reduction techniques: Automated exposure control, adjustment of the mA and/or kV according to patient size, and/or use of iterative reconstruction technique. FINDINGS: HEMORRHAGE: No intracranial hemorrhage. BRAIN: No mass effect or edema. No atrophy or chronic microvascular ischemic changes. VENTRICLES: Unremarkable. No hydrocephalus. CALVARIUM: Unremarkable. PARANASAL SINUSES: Unremarkable as visualized. No significant inflammatory changes. MASTOID AIR CELLS: Unremarkable as visualized. No inflammatory changes. OTHER FINDINGS: None. IMPRESSION: No acute findings
--- NOTE | 2017-12-02 14:20 | RAD ---
HISTORY: near syncope COMPARISON: 06/29/2017 FINDINGS: LUNGS: No active pulmonary disease. PLEURA: No significant pleural effusion identified, no pneumothorax apparent. CARDIOVASCULAR: Mild vascular congestion OSSEOUS STRUCTURES: No significant abnormalities. VISUALIZED UPPER ABDOMEN: Normal. OTHER FINDINGS: None. IMPRESSION: No active disease.
[2017-12-02 15:48] LABS: URINE BILIRUBIN NEGATIVE (NEGATIVE); URINE BLOOD NEGATIVE (NEGATIVE); URINE GLUCOSE (UA) NEGATIVE (NEGATIVE); URINE LEUKOCYTE ESTERASE NEGATIVE Leu/uL (NEGATIVE); URINE PROTEIN NEGATIVE mg/dL (<30 mg/dL); URINE UROBILINOGEN 0.2 E.U./dL (<1 E.U./dL)
[2017-12-02 15:49] LABS: URINE APPEARANCE CLEAR (CLEAR); URINE COLOR YELLOW (YELLOW)
--- NOTE | 2017-12-02 15:49 | CP.PCM.CON ---
<Victor Manuel Boudreaux - Last Filed: 12/02/17 15:30> History of Present Illness - History of Present Illness History of Present Illness: ICU Consult Note CC: Consult for severe anemia HPI: Pt is an 82 yo M with PMH of recal mass adenocarcinoma, pernicious anemia, iron deficiency, internal hemorrhoids, PUD, HTN, and diverticulosis who [place] to [facility] due to near syncopal event. Pt states that he began to feel weak while waiting for bus. Patient's believed the event was due to low blood pressure because he unresponsive even though he was awake and alert. Patient denies LOC or fall, but admits to melena. In the ED, patient was found to be severely anemic with a Hgb of 4.8 and positive guaiac stool test. Patient denied hematochezia, hemoptysis, hematemesis, nausea, vomiting, diarrhea, constipation, abdominal pain, fever, chills, MOSS, or dizziness. Of note, patient was scheduled for surgery during last admission on 06/2017 for the rectal adenocarcinoma, but left AMA with poor follow-up afterwards. ICU consultation was requested for severe acute anemia secondary to GI bleed with history of rectal adenocarcinoma. PMH: recal mass adenocarcinoma, pernicious anemia, iron deficiency, internal hemorrhoids, PUD, HTN, and diverticulosis PSH: Denies All: NKDA Meds: MAR Reviewed Soc: Denies tobacco, alcohol, or illicit drug use FMH: Non-contributory PMD: Keri Review of Systems - Review of Systems Review of Systems: 12 point ROS reviewed and is negative other than what is stated in HPI. 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 as per pt and , r eye cataract sx scheduled next month - RENAL Hx Chronic Kidney Disease: No - ENDOCRINE/METABOLIC Hx Endocrine Disorders: No - HEMATOLOGICAL/ONCOLOGICAL Hx Blood Transfusions: Yes - INTEGUMENTARY Hx Dermatological Problems: No - MUSCULOSKELETAL/RHEUMATOLOGICAL Hx Musculoskeletal Disorders: Yes - GASTROINTESTINAL Hx Gastroesophageal Reflux: Yes Hx Hemorrhoids: Yes (INTERNAL HEMORRHOIDS) - GENITOURINARY/GYNECOLOGICAL Hx Genitourinary Disorders: No - PSYCHIATRIC Hx Psychophysiologic Disorder: No Hx Substance Use: No - SURGICAL HISTORY Hx Surgeries: No - ANESTHESIA Hx Anesthesia Reactions: No Hx Malignant Hyperthermia: No Meds Allergies/Adverse Reactions: Allergies Allergy/AdvReac Type Severity Reaction Status Date / Time No Known Allergies Allergy Unverified 11/26/12 01:02 - Medications Medications: Current Medications Pantoprazole Sodium (Protonix 40mg Ivpb) 40 mg in 100 mls @ 20 mls/hr IVPB .Q5H LUCAS Physical Exam - Constitutional Appears: No Acute Distress - Head Exam Head Exam: NORMAL INSPECTION - Eye Exam Eye Exam: Normal appearance - ENT Exam ENT Exam: Mucous Membranes Moist - Neck Exam Neck exam: Positive for: Normal Inspection - Respiratory Exam Respiratory Exam: Clear to Auscultation Bilateral. absent: Rales, Rhonchi, Wheezes - Cardiovascular Exam Cardiovascular Exam: RRR, +S1, +S2. absent: Diastolic murmur, Gallop, Rubs, Systolic Murmur - GI/Abdominal Exam GI & Abdominal Exam: Soft. absent: Distended, Guarding, Rigid, Tenderness - Rectal Exam Additional comments: Guaiac positive - Extremities Exam Extremities exam: Positive for: normal inspection - Back Exam Back exam: NORMAL INSPECTION - Neurological Exam Neurological exam: Alert, CN II-XII Intact, Oriented x3 - Psychiatric Exam Psychiatric exam: Normal Affect, Normal Mood - Skin Skin Exam: Dry, Intact, Normal Color, Warm Results - Vital Signs Recent Vital Signs: Last Vital Signs Temp 98.0 F 12/02/17 13:24 Pulse 76 12/02/17 14:18 Resp 19 12/02/17 14:18 BP 133/54 L 12/02/17 14:18 Pulse Ox 100 12/02/17 14:18 - Labs Result Diagrams: 12/02/17 13:18 12/02/17 13:18 Assessment & Plan - Assessment and Plan (Free Text) Assessment: 82 y/o M with PMH of recal mass adenocarcinoma, pernicious anemia, iron deficiency, internal hemorrhoids, PUD, HTN, and diverticulosis presents to ED for near syncopal event. Patient was found to be severely anemic and will be admitted to the ICU due to severe anemia 2/2 GI bleed likely from rectal adenocarcinmoa requiring transfusion. Plan: Neuro: - AAOx3 - Head CT negative - Fall precautions - Maintain normothermia CV: - Hemodynamically stable - EKG showed NSR at [address] elevations, PAC - Echo from 06/2017 showed normal EF, severe pulmonary HTN and tricuspid regurgitation - Maintain MAP > 65 Pulm: - CXR negative - Maintain O2 sat > 90% GI: - NPO - Protonix gtt - CT abd/pelvis ordered - GI consulted - Surgery consulted Renal: - Maintain euvolemia - Monitor electrolytes and replete as needed Heme: - Hgb 4.8 - Type and crossmatch - Transfuse 2 u pRBC, CBC after transfusion - Monitor H/H - SCDs for DVT PPx Endo: - Maintain euglycemia Pt seen and discussed in detail with Dr. Rojas. Anthony Boudreaux, PGY1 <Hunter Rojas - Last Filed: 12/02/17 17:24> Meds - Medications Medications: Current Medications Pantoprazole Sodium (Protonix 40mg Ivpb) 40 mg in 100 mls @ 20 mls/hr IVPB .Q5H LUCAS Results - Vital Signs Recent Vital Signs: Last Vital Signs Temp 98.3 F 12/02/17 16:48 Pulse 77 12/02/17 16:48 Resp 19 12/02/17 16:48 BP 135/71 12/02/17 16:48 Pulse Ox 98 12/02/17 16:48 - Labs Result Diagrams: 12/02/17 13:18 12/02/17 13:18 Labs: Laboratory Results - last 24 hr 12/02/17 16:35 Crossmatch See Detail BBK History Checked Patient has bt Assessment & Plan - Assessment and Plan (Free Text) Plan: Patient seen and examined with resident, agree with note with following additions/exceptions: Patient is 82yo male with PMH of recal mass adenocarcinoma, pernicious anemia, iron deficiency, internal hemorrhoids, PUD, HTN, and diverticulosis presented with syncopal event, found to be anemic, HH 4.8. Currently afebrile, HD stable, comfortable in NAD, no active bleeding. CT A/P done, read pending. Pt to receive 2u PRBC. Stable. Anemia GI bleed HTN Hx of Rectal Mass Recommend: - supp o2 as needed - panculture - Hold BP meds - IVF hydration - transfuse prbc, goal Hgb>7 - GI eval - NPO - PPI - maintain 2 large bore PIVs - follow up CT A/P - GI ppx - DVT ppx, SCDs - Monitor in MICU
--- NOTE | 2017-12-02 16:30 | CARD ---
APPROVED REPORT EKG Measurement Heart [id number] <Conclusion> Sinus rhythm with premature atrial complexes Prolonged QT Abnormal ECG
[2017-12-02] MEDS: Pantoprazole 40mg/100mL NS 40 MG/100 ML BAG IVPB SCH ×2 (16:48→22:00)
--- NOTE | 2017-12-02 17:41 | CT ---
PROCEDURE: CT Abdomen and Pelvis without intravenous contrast HISTORY: GI bleed h/o rectal mass COMPARISON: 06/30/2017 TECHNIQUE: CT scan of the abdomen and pelvis was performed without administration of intravenous contrast. Oral contrast was not administered. Coronal and sagittal reformatted images were obtained. Radiation dose: Total exam DLP = 393.18 mGy-cm. This CT exam was performed using one or more of the following dose reduction techniques: Automated exposure control, adjustment of the mA and/or kV according to patient size, and/or use of iterative reconstruction technique. FINDINGS: LOWER THORAX: There is subsegmental atelectasis in the right lower lobe. The left lung base is clear. LIVER: The liver is normal in size. No intrahepatic biliary ductal dilatation. There is a 8 mm low-attenuation lesion in the hepatic dome. GALLBLADDER AND BILE DUCTS: No calcified gallstones. PANCREAS: Mild atrophy. No gross lesion or ductal dilatation. SPLEEN: Normal in size. ADRENALS: No discrete nodule. KIDNEYS AND URETERS: Normal in size without nephrolithiasis. No hydronephrosis. VASCULATURE: No aortic aneurysm. BOWEL: The small bowel loops are normal in caliber. There is large amount of stool in the colon. There is left colonic diverticulosis without CT evidence for acute diverticulitis. There is a 1.5 x 2.4 cm eccentric focal thickening in the left posterior lateral rectal wall. APPENDIX: Normal appendix. PERITONEUM: No free fluid. No free air. LYMPH NODES: No enlarged lymph nodes. BLADDER: Unremarkable. REPRODUCTIVE: There is mild enlargement of the prostate gland. BONES: No acute fracture. OTHER FINDINGS: None. IMPRESSION: 1. No acute abdominal or pelvic abnormality. 2. Left colonic diverticulosis without CT evidence for acute diverticulitis. 3. 1.5 x 2.4 cm eccentric focal thickening in the left posterior the lateral rectal wall, nonspecific and could represent polyp however neoplasm cannot be excluded. Please correlate with proctoscopy. 4. 8 mm lesion in the hepatic dome not completely characterized on the CT examination please please correlate with ultrasound examination.
--- NOTE | 2017-12-02 19:14 | CP.PCM.CON ---
History of Present Illness - History of Present Illness History of Present Illness: General Surgery Consult for Dr. Bautista (Dr. Hayes is covering) Reason for consult: rectal adenocarcinoma, lower GI bleed 82 M with PMH that includes non-compliance, rectal adenocarcinoma, pernicious anemia, iron deficiency, internal hemorrhoids, PUD, HTN, and diverticulosis who presents [place] [facility] due to dizziness/lightheadedness and malaise. Patient was seen and evaluated in the ICU. Family was bedside who supplemented the history. Patient states that he began to feel weak while waiting for bus. As per patient' s , the patient began to zone out. Patient and family denies syncope or fall. Patient was diagnosed with rectal adnocarcinoma and scheduled for surgery during last admission on 06/2017 but left AMA with poor follow-up afterwards. Patient was found to be severely anemic with a Hgb of 4.8. PMD: Keri PMH: recal mass adenocarcinoma, pernicious anemia, iron deficiency, internal hemorrhoids, PUD, HTN, and diverticulosis Meds: As per EMR All: NKDA PSH: scrotum surgery, eye surgery FH: Non-contributory Social: Denies tobacco, alcohol, or illicit drug use Review of Systems - Review of Systems All systems: reviewed and no additional remarkable complaints except (as per HPI ) Past Patient History - Infectious Disease Hx of Infectious Diseases: None - Tetanus Immunizations Tetanus Immunization: Unknown - Past Social History Smoking Status: Never Smoked - CARDIAC Hx Hypertension: Yes - PULMONARY Hx Respiratory Disorders: No - NEUROLOGICAL Other/Comment: involuntary tick - HEENT Hx Blind: Yes (Legally blind) Hx Cataracts: Yes Other/Comment: legally blind from glaucoma and cataracts as per pt and , r eye cataract sx scheduled next month - RENAL Hx Chronic Kidney Disease: No - ENDOCRINE/METABOLIC Hx Endocrine Disorders: No - HEMATOLOGICAL/ONCOLOGICAL Hx Cancer: No Other/Comment: rectal mass, adenocarcinoma - INTEGUMENTARY Hx Dermatological Problems: No - MUSCULOSKELETAL/RHEUMATOLOGICAL Hx Musculoskeletal Disorders: Yes Hx Falls: Yes - GASTROINTESTINAL Hx Gastroesophageal Reflux: Yes - GENITOURINARY/GYNECOLOGICAL Hx Genitourinary Disorders: No - PSYCHIATRIC Hx Psychophysiologic Disorder: No - SURGICAL HISTORY Hx Surgeries: No - ANESTHESIA Hx Anesthesia Reactions: No Hx Malignant Hyperthermia: No Meds Allergies/Adverse Reactions: Allergies Allergy/AdvReac Type Severity Reaction Status Date / Time No Known Allergies Allergy Unverified 11/26/12 01:02 - Medications Medications: Current Medications Pantoprazole Sodium (Protonix 40mg Ivpb) 40 mg in 100 mls @ 20 mls/hr IVPB .Q5H LUCAS Last Admin: 12/02/17 16:48 Dose: 20 mls/hr Physical Exam - Constitutional Appears: No Acute Distress - Head Exam Head Exam: ATRAUMATIC, NORMOCEPHALIC - Eye Exam Eye Exam: EOMI Pupil Exam: PERRL - ENT Exam ENT Exam: Mucous Membranes Moist - Neck Exam Neck exam: Negative for: Tenderness - Respiratory Exam Respiratory Exam: Clear to Auscultation Bilateral, NORMAL BREATHING PATTERN - Cardiovascular Exam Cardiovascular Exam: REGULAR RHYTHM, +S1, +S2 - GI/Abdominal Exam GI & Abdominal Exam: Normal Bowel Sounds, Soft. absent: Distended, Firm, Guarding, Hernia, Rigid, Tenderness - Rectal Exam Rectal Exam: Black Stool. absent: Hemorrhoids, Fecal Impaction Additional comments: good sphincter tone, smooth rectal joseph, prostate firm - nodule 3 o clock position - Extremities Exam Extremities exam: Positive for: normal capillary refill, pedal pulses present. Negative for: calf tenderness - Back Exam Back exam: absent: CVA tenderness (L), CVA tenderness (R) - Neurological Exam Neurological exam: Alert, CN II-XII Intact, Oriented x3 - Skin Skin Exam: Dry, Intact, Warm Results - Vital Signs Recent Vital Signs: Last Vital Signs Temp 98.3 F 12/02/17 19:04 Pulse 76 12/02/17 19:04 Resp 14 12/02/17 19:04 BP 154/54 H 12/02/17 19:04 Pulse Ox 98 12/02/17 16:48 - Labs Result Diagrams: 12/02/17 13:18 12/02/17 13:18 Labs: Laboratory Results - last 24 hr 12/02/17 16:35 Blood Type A POSITIVE Antibody Screen Negative Crossmatch See Detail BBK History Checked Patient has bt Assessment & Plan - Assessment and Plan (Free Text) Assessment: 82 M with rectal adenocarcinoma anemia and lower GI bleed; Ct findings of rectal mass and 8mm liver lesion Plan: -CBC Q6H -Transfuse PRN -IV fluids -Monitor bowel function -Serial abd exam -Rectal MRI -Will discuss with Dr. Hayes (covering for Dr. Deepali Chavez PGY1
[2017-12-03 00:51] LABS: MEAN CELL VOLUME 79.1 fl (80.0-105.0); MEAN CORPUSCULAR HEMOGLOBIN 24.7 pg (25.0-35.0); MEAN CORPUSCULAR HGB CONC 31.3 g/dl (31.0-37.0); MEAN PLATELET VOLUME 10.6 fl (7.0-11.0); RBC 2.63 10^6/uL (3.5-6.1); RED CELL DISTRIBUTION WIDTH 16.1 % (11.5-14.5); WHITE BLOOD COUNT 7.4 10^3/ul (4.5-11.0)
[2017-12-03 01:11] LABS: INR 1.07 (0.93-1.08); PARTIAL THROMBOPLASTIN TIME 26.1 Seconds (25.1-36.5); PROTHROMBIN TIME 12.2 SECONDS (9.4-12.5)
[2017-12-03 01:15] LABS: HEMOGLOBIN 6.5 g/dL (14.0-18.0)
[2017-12-03] MEDS: Pantoprazole 40mg/100mL NS 40 MG/100 ML BAG IVPB SCH ×4 (02:43→20:03)
[2017-12-03 06:49] LABS: HEMOGLOBIN 8.4 g/dL (14.0-18.0); MEAN CELL VOLUME 78.6 fl (80.0-105.0); MEAN CORPUSCULAR HEMOGLOBIN 24.3 pg (25.0-35.0); MEAN PLATELET VOLUME 11.8 fl (7.0-11.0); RBC 3.45 10^6/uL (3.5-6.1); RED CELL DISTRIBUTION WIDTH 15.9 % (11.5-14.5); WHITE BLOOD COUNT 7.5 10^3/ul (4.5-11.0)
[2017-12-03 07:16] LABS: ALB/GLOB RATIO 1.4 (1.1-1.8); ALBUMIN 3.7 g/dL (3.0-4.8); ALT/SGPT 28 U/L (7-56); AST/SGOT 17 U/L (17-59); BLOOD UREA NITROGEN 13 mg/dL (7-21); CALCIUM 8.7 mg/dL (8.4-10.5); GFR AFRICAN-AMERICAN > 60; GFR NON-AFRICAN AMERICAN > 60
--- NOTE | 2017-12-03 07:43 | CP.PCM.PN ---
Subjective - Date & Time of Evaluation Date of Evaluation: 12/03/17 Time of Evaluation: 07:20 - Subjective Subjective: Patient seen and examined at bedside this AM. Patient has not had any further GI bleeding overnight. Pt received 3 units of PRBC with appropriate hgb response. Patient denies pain but complains about his NPO status, stating he wants to eat and does not want surgery. Objective - Vital Signs/Intake and Output Vital Signs (last 24 hours): Temp Pulse Resp BP Pulse Ox 98.6 F 73 14 122/80 100 12/02/17 20:05 12/03/17 06:00 12/03/17 05:50 12/03/17 05:00 12/03/17 05:50 Intake and Output: 12/03/17 12/03/17 06:59 18:59 Intake Total 1525 Output Total 1000 Balance 525 - Medications Medications: Current Medications Pantoprazole Sodium (Protonix 40mg Ivpb) 40 mg in 100 mls @ 20 mls/hr IVPB .Q5H LUCAS Last Admin: 12/03/17 02:43 Dose: 20 mls/hr - Labs Labs: 12/03/17 05:50 12/03/17 05:50 PT 12.2 SECONDS (9.4-12.5) 12/03/17 00:40 INR 1.07 (0.93-1.08) 12/03/17 00:40 APTT 26.1 Seconds (25.1-36.5) 12/03/17 00:40 - Constitutional Appears: Well, Non-toxic, No Acute Distress - Head Exam Head Exam: ATRAUMATIC, NORMOCEPHALIC - Eye Exam Eye Exam: Normal appearance. absent: Conjunctival injection, Scleral icterus - ENT Exam ENT Exam: Mucous Membranes Moist, Normal Oropharynx - Respiratory Exam Respiratory Exam: NORMAL BREATHING PATTERN. absent: Accessory Muscle Use, Respiratory Distress - Cardiovascular Exam Cardiovascular Exam: RRR - GI/Abdominal Exam GI & Abdominal Exam: Soft. absent: Distended, Tenderness - Rectal Exam Rectal Exam: NORMAL INSPECTION Additional comments: normal external exam, no bleeding from rectum evident - Extremities Exam Extremities Exam: absent: Calf Tenderness, Pedal Edema, Tenderness - Neurological Exam Neurological Exam: Alert, Awake, Oriented x3 - Psychiatric Exam Psychiatric exam: Normal Affect, Normal Mood - Skin Skin Exam: Dry, Intact, Normal Color, Warm Assessment and Plan - Assessment and Plan (Free Text) Assessment: 82M with rectal adenocarcinoma with possible liver metastasis, severe anemia, now clinically stable after 3 units of PRBC Plan: Continue to trend CBC, transfuse as needed for Patient states that he does not want surgery at this time--his cancer is possibly stage 4 with the liver lesion. Ordered CT with liver protocol to further evaluate lesion Recommend possible radiation/oncology consult if patient wants further intervention--patient states he wants discussion to be held daughter Continue IVF Advance diet per GI PRN pain and nausea medication Discussed with Dr. Freddy Cuevas, PGY2
--- NOTE | 2017-12-03 10:16 | CP.CCUPN ---
<Victor Manuel Boudreaux - Last Filed: 12/03/17 10:12> CCU Subjective - Physician Review Subjective (Free Text): ICU Progress Note Pt seen and examined at bedside. No acute overnight events. Patient Hgb stable after 3 units of pRBC. Patient denies CP, SOB, n/v/d, abdominal pain, fever, chills, MOSS, or dizziness. CCU Objective - Vital Signs / Intake & Output Intake and Output (Last 8hrs): Intake & Output 12/02/17 12/03/17 12/03/17 22:59 06:59 14:59 Intake Total 395 1150 Output Total 125 1000 Balance 270 150 Weight 78.018 kg Intake: IV 20 500 Left Hand 20 500 Blood Product 325 650 Red Blood Cells Cpd As1 325 Lr Unit [id number] Other 50 Red Blood Cells Cpd As1 50 Lr Unit [id number] Output: Urine 125 1000 Urine, Voided 125 1000 Stool 0 Other: Voiding Method Urinal # Bowel Movements 0 - Physical Exam Head: Positive for: Atraumatic, Normocephalic Pupils: Positive for: PERRL Extroacular Muscles: Positive for: EOMI Conjunctiva: Positive for: Other (pale) Mouth: Positive for: Moist Mucous Membranes Neck: Positive for: Normal Range of Motion Respiratory/Chest: Positive for: Clear to Auscultation, Good Air Exchange. Negative for: Respiratory Distress, Accessory Muscle Use Cardiovascular: Positive for: Regular Rate and Rhythm, Normal S1, S2. Negative for: Murmurs Abdomen: Negative for: Tenderness, Distention, Peritoneal Signs Rectal: Negative for: Hemorrhoids Back: Positive for: Normal Inspection Upper Extremity: Positive for: Normal Inspection. Negative for: Cyanosis, Edema Lower Extremity: Positive for: Normal Inspection. Negative for: Edema Neurological: Positive for: GCS=15, CN II-XII Intact, Speech Normal Skin: Positive for: Warm, Dry, Normal Color. Negative for: Rashes Psychiatric: Positive for: Alert, Oriented x 3, Normal Insight, Normal Concentration - Medications Active Medications: Active Medications Generic Name Dose Route Start Last Admin Trade Name Freq PRN Reason Stop Dose Admin Pantoprazole Sodium 40 mg in 100 mls @ 20 mls/hr 12/02/17 15:00 12/03/17 07: 53 Protonix 40mg Ivpb IVPB 20 mls/hr .Q5H LUCAS Administration - Patient Studies Lab Studies: Lab Studies 12/03/17 12/03/17 12/03/17 Range/Units 05:50 05:50 00:40 WBC 7.5 (4.5-11.0) 10^3/ul RBC 3.45 L (3.5-6.1) 10^6/uL Hgb 8.4 L (14.0-18.0) g/dL Hct 27.1 L (42.0-52.0) % MCV 78.6 L (80.0-105.0) fl MCH 24.3 L (25.0-35.0) pg MCHC 31.0 (31.0-37.0) g/dl RDW 15.9 H (11.5-14.5) % Plt Count 221 (120.0-450.0) 10^3/uL MPV 11.8 H (7.0-11.0) fl PT 12.2 (9.4-12.5) SECONDS INR 1.07 (0.93-1.08) APTT 26.1 (25.1-36.5) Seconds Sodium 147 (132-148) mmol/L Potassium 4.2 (3.6-5.0) mmol/L Chloride 113 H (98-107) mmol/L Carbon Dioxide 22 (21-33) mmol/L Anion Gap 17 (10-20) BUN 13 (7-21) mg/dL Creatinine 0.9 (0.8-1.5) mg/dl Est GFR ( Amer) > 60 Est GFR (Non-Af Amer) > 60 Random Glucose 88 (70-110) mg/dL Calcium 8.7 (8.4-10.5) mg/dL Phosphorus 2.8 (2.5-4.5) mg/dL Magnesium 2.0 (1.7-2.2) mg/dL Total Bilirubin 0.6 (0.2-1.3) mg/dL AST 17 D (17-59) U/L ALT 28 (7-56) U/L Alkaline Phosphatase 47 (38-126) U/L Total Protein 6.3 (5.8-8.3) g/dL Albumin 3.7 (3.0-4.8) g/dL Globulin 2.6 gm/dL Albumin/Globulin Ratio 1.4 (1.1-1.8) Stool Occult Blood (NEGATIVE) Blood Type Antibody Screen Crossmatch BBK History Checked 12/03/17 12/02/17 12/02/17 Range/Units 00:40 20:00 16:35 WBC 7.4 (4.5-11.0) 10^3/ul RBC 2.63 L (3.5-6.1) 10^6/uL Hgb 6.5 L* (14.0-18.0) g/dL Hct 20.8 L* (42.0-52.0) % MCV 79.1 L (80.0-105.0) fl MCH 24.7 L (25.0-35.0) pg MCHC 31.3 (31.0-37.0) g/dl RDW 16.1 H (11.5-14.5) % Plt Count 203 (120.0-450.0) 10^3/uL MPV 10.6 (7.0-11.0) fl PT (9.4-12.5) SECONDS INR (0.93-1.08) APTT (25.1-36.5) Seconds Sodium (132-148) mmol/L Potassium (3.6-5.0) mmol/L Chloride (98-107) mmol/L Carbon Dioxide (21-33) mmol/L Anion Gap (10-20) BUN (7-21) mg/dL Creatinine (0.8-1.5) mg/dl Est GFR ( Amer) Est GFR (Non-Af Amer) Random Glucose (70-110) mg/dL Calcium (8.4-10.5) mg/dL Phosphorus (2.5-4.5) mg/dL Magnesium (1.7-2.2) mg/dL Total Bilirubin (0.2-1.3) mg/dL AST (17-59) U/L ALT (7-56) U/L Alkaline Phosphatase (38-126) U/L Total Protein (5.8-8.3) g/dL Albumin (3.0-4.8) g/dL Globulin gm/dL Albumin/Globulin Ratio (1.1-1.8) Stool Occult Blood Positive H (NEGATIVE) Blood Type A POSITIVE Antibody Screen Negative Crossmatch See Detail BBK History Checked Patient has bt Laboratory Results - last 24 hr 12/02/17 12/02/17 12/03/17 16:35 20:00 00:40 WBC 7.4 RBC 2.63 L Hgb 6.5 L* Hct 20.8 L* MCV 79.1 L MCH 24.7 L MCHC 31.3 RDW 16.1 H Plt Count 203 MPV 10.6 PT INR APTT Sodium Potassium Chloride Carbon Dioxide Anion Gap BUN Creatinine Est GFR ( Amer) Est GFR (Non-Af Amer) Random Glucose Calcium Phosphorus Magnesium Total Bilirubin AST ALT Alkaline Phosphatase Total Protein Albumin Globulin Albumin/Globulin Ratio Stool Occult Blood Positive H Blood Type A POSITIVE Antibody Screen Negative Crossmatch See Detail BBK History Checked Patient has bt 12/03/17 12/03/17 12/03/17 00:40 05:50 05:50 WBC 7.5 RBC 3.45 L Hgb 8.4 L Hct 27.1 L MCV 78.6 L MCH 24.3 L MCHC 31.0 RDW 15.9 H Plt Count 221 MPV 11.8 H PT 12.2 INR 1.07 APTT 26.1 Sodium 147 Potassium 4.2 Chloride 113 H Carbon Dioxide 22 Anion Gap 17 BUN 13 Creatinine 0.9 Est GFR ( Amer) > 60 Est GFR (Non-Af Amer) > 60 Random Glucose 88 Calcium 8.7 Phosphorus 2.8 Magnesium 2.0 Total Bilirubin 0.6 AST 17 D ALT 28 Alkaline Phosphatase 47 Total Protein 6.3 Albumin 3.7 Globulin 2.6 Albumin/Globulin Ratio 1.4 Stool Occult Blood Blood Type Antibody Screen Crossmatch BBK History Checked Critical Care Progress Note - Nutrition Nutrition: Nutrition Category Date Time Status NPO Diet [DIET] Diets 12/02/17 Lunch Ordered Assessment/Plan - Assessment and Plan (Free Text) Assessment: 82 y/o M with PMH of recal mass adenocarcinoma, pernicious anemia, iron deficiency, internal hemorrhoids, PUD, HTN, and diverticulosis presents to ED for near syncopal event. Patient was found to be severely anemic and was admitted to the ICU due to severe anemia 2/2 GI bleed likely from rectal adenocarcinoma requiring transfusion. After 3 units of pRBC hemoglobin fay to 8.4. Disposition pending endoscopy with GI today. Plan: Neuro: - AAOx3 - Head CT negative - Fall precautions - Maintain normothermia CV: - Hemodynamically stable - EKG showed NSR at [address] elevations, PAC - Echo from 06/2017 showed normal EF, severe pulmonary HTN and tricuspid regurgitation - Holding home anti-hypertensives - Maintain MAP > 65 Pulm: - CXR negative - Maintain O2 sat > 90% GI: - NPO - Protonix gtt - CT abd/pelvis showed 1.5x2.4 cm eccentric focal thickening of the left posterior lateral rectal wall and 8 mm lesion in hepatic dome - GI consulted - endoscopy today - Surgery consulted Renal: - Maintain euvolemia - Monitor electrolytes and replete as needed Heme: - Hgb 8.4 after 3 units pRBC - Monitor H/H - SCDs for DVT PPx Endo: - Maintain euglycemia Pt seen and discussed in detail with Dr. Rojas. Anthony Boudreaux, PGY1 <Hunter Rojas - Last Filed: 12/03/17 10:35> CCU Objective - Vital Signs / Intake & Output Vital Signs (Last 4 hours): Vital Signs Temp Pulse Resp BP Pulse Ox 12/03/17 10:00 69 12 136/69 100 12/03/17 09:30 88 27 H 93 L 12/03/17 09:00 98.5 F 71 113/64 57 L 12/03/17 08:30 66 18 100 12/03/17 08:00 74 16 141/66 100 12/03/17 07:30 78 19 100 12/03/17 07:00 74 5 L 135/71 100 Intake and Output (Last 8hrs): Intake & Output 12/02/17 12/03/17 12/03/17 22:59 06:59 14:59 Intake Total 395 1150 Output Total 125 1000 Balance 270 150 Weight 172 lb Intake: IV 20 500 Left Hand 20 500 Blood Product 325 650 Red Blood Cells Cpd As1 325 Lr Unit [id number] Other 50 Red Blood Cells Cpd As1 50 Lr Unit [id number] Output: Urine 125 1000 Urine, Voided 125 1000 Stool 0 Other: Voiding Method Urinal # Bowel Movements 0 - Medications Active Medications: Active Medications Generic Name Dose Route Start Last Admin Trade Name Freq PRN Reason Stop Dose Admin Pantoprazole Sodium 40 mg in 100 mls @ 20 mls/hr 12/02/17 15:00 12/03/17 07: 53 Protonix 40mg Ivpb IVPB 20 mls/hr .Q5H LUCAS Administration - Patient Studies Lab Studies: Lab Studies 12/03/17 12/03/17 12/03/17 Range/Units 05:50 05:50 00:40 WBC 7.5 (4.5-11.0) 10^3/ul RBC 3.45 L (3.5-6.1) 10^6/uL Hgb 8.4 L (14.0-18.0) g/dL Hct 27.1 L (42.0-52.0) % MCV 78.6 L (80.0-105.0) fl MCH 24.3 L (25.0-35.0) pg MCHC 31.0 (31.0-37.0) g/dl RDW 15.9 H (11.5-14.5) % Plt Count 221 (120.0-450.0) 10^3/uL MPV 11.8 H (7.0-11.0) fl PT 12.2 (9.4-12.5) SECONDS INR 1.07 (0.93-1.08) APTT 26.1 (25.1-36.5) Seconds Sodium 147 (132-148) mmol/L Potassium 4.2 (3.6-5.0) mmol/L Chloride 113 H (98-107) mmol/L Carbon Dioxide 22 (21-33) mmol/L Anion Gap 17 (10-20) BUN 13 (7-21) mg/dL Creatinine 0.9 (0.8-1.5) mg/dl Est GFR ( Amer) > 60 Est GFR (Non-Af Amer) > 60 Random Glucose 88 (70-110) mg/dL Calcium 8.7 (8.4-10.5) mg/dL Phosphorus 2.8 (2.5-4.5) mg/dL Magnesium 2.0 (1.7-2.2) mg/dL Total Bilirubin 0.6 (0.2-1.3) mg/dL AST 17 D (17-59) U/L ALT 28 (7-56) U/L Alkaline Phosphatase 47 (38-126) U/L Total Protein 6.3 (5.8-8.3) g/dL Albumin 3.7 (3.0-4.8) g/dL Globulin 2.6 gm/dL Albumin/Globulin Ratio 1.4 (1.1-1.8) Stool Occult Blood (NEGATIVE) Blood Type Antibody Screen Crossmatch BBK History Checked 12/03/17 12/02/17 12/02/17 Range/Units 00:40 20:00 16:35 WBC 7.4 (4.5-11.0) 10^3/ul RBC 2.63 L (3.5-6.1) 10^6/uL Hgb 6.5 L* (14.0-18.0) g/dL Hct 20.8 L* (42.0-52.0) % MCV 79.1 L (80.0-105.0) fl MCH 24.7 L (25.0-35.0) pg MCHC 31.3 (31.0-37.0) g/dl RDW 16.1 H (11.5-14.5) % Plt Count 203 (120.0-450.0) 10^3/uL MPV 10.6 (7.0-11.0) fl PT (9.4-12.5) SECONDS INR (0.93-1.08) APTT (25.1-36.5) Seconds Sodium (132-148) mmol/L Potassium (3.6-5.0) mmol/L Chloride (98-107) mmol/L Carbon Dioxide (21-33) mmol/L Anion Gap (10-20) BUN (7-21) mg/dL Creatinine (0.8-1.5) mg/dl Est GFR ( Amer) Est GFR (Non-Af Amer) Random Glucose (70-110) mg/dL Calcium (8.4-10.5) mg/dL Phosphorus (2.5-4.5) mg/dL Magnesium (1.7-2.2) mg/dL Total Bilirubin (0.2-1.3) mg/dL AST (17-59) U/L ALT (7-56) U/L Alkaline Phosphatase (38-126) U/L Total Protein (5.8-8.3) g/dL Albumin (3.0-4.8) g/dL Globulin gm/dL Albumin/Globulin Ratio (1.1-1.8) Stool Occult Blood Positive H (NEGATIVE) Blood Type A POSITIVE Antibody Screen Negative Crossmatch See Detail BBK History Checked Patient has bt Laboratory Results - last 24 hr 12/02/17 12/02/17 12/03/17 16:35 20:00 00:40 WBC 7.4 RBC 2.63 L Hgb 6.5 L* Hct 20.8 L* MCV 79.1 L MCH 24.7 L MCHC 31.3 RDW 16.1 H Plt Count 203 MPV 10.6 PT INR APTT Sodium Potassium Chloride Carbon Dioxide Anion Gap BUN Creatinine Est GFR ( Amer) Est GFR (Non-Af Amer) Random Glucose Calcium Phosphorus Magnesium Total Bilirubin AST ALT Alkaline Phosphatase Total Protein Albumin Globulin Albumin/Globulin Ratio Stool Occult Blood Positive H Blood Type A POSITIVE Antibody Screen Negative Crossmatch See Detail BBK History Checked Patient has bt 12/03/17 12/03/17 12/03/17 00:40 05:50 05:50 WBC 7.5 RBC 3.45 L Hgb 8.4 L Hct 27.1 L MCV 78.6 L MCH 24.3 L MCHC 31.0 RDW 15.9 H Plt Count 221 MPV 11.8 H PT 12.2 INR 1.07 APTT 26.1 Sodium 147 Potassium 4.2 Chloride 113 H Carbon Dioxide 22 Anion Gap 17 BUN 13 Creatinine 0.9 Est GFR ( Amer) > 60 Est GFR (Non-Af Amer) > 60 Random Glucose 88 Calcium 8.7 Phosphorus 2.8 Magnesium 2.0 Total Bilirubin 0.6 AST 17 D ALT 28 Alkaline Phosphatase 47 Total Protein 6.3 Albumin 3.7 Globulin 2.6 Albumin/Globulin Ratio 1.4 Stool Occult Blood Blood Type Antibody Screen Crossmatch BBK History Checked Critical Care Progress Note - Nutrition Nutrition: Nutrition Category Date Time Status NPO Diet [DIET] Diets 12/02/17 Lunch Ordered Assessment/Plan - Assessment and Plan (Free Text) Plan: Patient seen and examined with resident, agree with note with following additions/exceptions: Patient is 82yo male with PMH of recal mass adenocarcinoma, pernicious anemia, iron deficiency, internal hemorrhoids, PUD, HTN, and diverticulosis presented with syncopal event, found to be anemic, HH 4.8, received 3u pRBC, appropriate response. Currently afebrile, HD stable, comfortable in NAD, no active bleeding. CT A/P done,noted. Anemia GI bleed HTN Hx of Rectal Mass Recommend: - supp o2 as needed - panculture - Hold BP meds - IVF hydration - transfuse prbc as needed - GI eval - NPO - PPI - maintain 2 large bore PIVs - GI ppx - DVT ppx, SCDs - if stable after GI intervention/evaluation endoscopy, would transfer to med/ surg
[2017-12-03 10:58] LABS: HEMOGLOBIN 7.5 g/dL (14.0-18.0); MEAN CELL VOLUME 78.4 fl (80.0-105.0); MEAN CORPUSCULAR HEMOGLOBIN 24.9 pg (25.0-35.0); MEAN CORPUSCULAR HGB CONC 31.8 g/dl (31.0-37.0); RBC 3.01 10^6/uL (3.5-6.1); RED CELL DISTRIBUTION WIDTH 16.2 % (11.5-14.5); WHITE BLOOD COUNT 6.9 10^3/ul (4.5-11.0)
--- NOTE | 2017-12-03 12:12 | HP ---
DATE OF EXAM: 12/02/2017HIHISTORY OF PRESENT ILLNESS: Mr. Franco Olson with past medical history of rectal mass adenocarcinoma, came to the emergency department by EMS complaining of experiencing near syncope event. Patient presented with his and primarily speaks Creole, translation done in ER. The patient reports that while waiting for the bus, his lower extremities suddenly started to feel weak, gave up. managed to sit the patient down and provided water. According to , maybe the patient's blood pressure was low. Patient became unresponsive and slowly improved. Denies any patient fall ,convulsion. At home, the patient's appetite is good. No fever, no chill. No nausea, vomiting or diarrhea. No headache or biting of his tongue. Patient denies like this never happened. Patient is very noncompliant. He has multiple admissions with low hemoglobin and blood transfusion was given. Patient had colonoscopy done and came to know patient had rectal adenocarcinoma, tried to be sent for surgery, even multiple times gave the patient phone number of the surgeon and employee services manager. PAST MEDICAL HISTORY: As above, hypertension, rectal adenocarcinoma, patient is legally blind, history of anemia, status post blood transfusion multiple times, history of arthritis, internal hemorrhoids. FAMILY HISTORY: Father and mother, noncontributory. HABITS: Never smoked. No drug. No ethanol. ALLERGIES: PATIENT IS NOT ALLERGIC WITH ANY MEDICATIONS. HOME MEDICATIONS: Patient do not remember. REVIEW OF SYSTEMS: Patient is seen and examined at the bedside , are sitting on the bedside also. No fever, night sweats. No shortness of breath, coughing or chest pain. No abdominal pain, diarrhea, nausea or vomiting. Absent headache or dizziness at that moment. A 10-point review of systems done by pr and is negative except above. PHYSICAL EXAMINATION: VITAL SIGNS: Temperature 98, pulse 73, respiratory rate 18, blood pressure 112/62, pulse oximetry 93%. HEENT: Head: Normocephalic, atraumatic. Eyes: PERRLA. Extraocular muscles intact. Conjunctivae clear. Nose patent. Mucous membrane moist. NECK: Supple. No carotid bruit. No JVD or thyromegaly. CHEST: Bilaterally symmetrical. HEART: S1 and S2 positive. LUNGS: Clear to auscultation. ABDOMEN: Soft. Bowel sounds present. No organomegaly. EXTREMITIES: No edema. No cyanosis. NEUROLOGICAL: Patient is awake and alert. Follows simple commands. LABORATORY DATA: White blood cell is 8.7, hemoglobin 4.8, hematocrit 16.6, platelets 261. Sodium 144, potassium 4.6, BUN 16, creatinine 0.8, glucose 96. ASSESSMENT AND PLAN: Mr. Franco Olson is an 82-year-old male with severe anemia, acute on chronic, needs blood transfusion. Patient had symptomatic anemia, having seizure like activity, hyperchloremia, history of hypertension, history of adenocarcinoma of the rectum,need surgery, very noncompliant. Patient's daughter, Cass; patient's son; everybody knows about that. Actually, patient has 11 children, everybody knows patient's condition, cause of severe anemia, stool guaiac positive, gastrointestinal bleeding. We called Gastroenterology consult, surgical consult. CAT scan of the abdomen and pelvis done. CAT scan of the head done. Reviewed ER notes . CAT scan shows no acute abdominal or pelvic abnormality plus colonic diverticulosis without CT evidence of acute diverticulitis, 1.5 x 2.4 cm eccentric focal thickening of the left posterior of the lateral rectal wall, nonspecific and could represent a polyp, however, neoplasm cannot be excluded, please correlate with the proctoscopy. An 8-mm lesion in the hepatic dome, not completely charecterized on the CT examination and please correlate with the ultrasound examination. Repeat labs. Discussion done with the patient's . Blood transfusion given. Consult called with oncologist, employee services manager. Gastric and deep venous thrombosis prophylaxis. Repeat labs. We will follow up. Danielle Saavedra MD MTDVenkatesh
[2017-12-03] MEDS ORDERED: Propofol 10 mg/ml Inj (20 ML) ONE (14:03)
[2017-12-03] MEDS ORDERED: Lidocaine 2% Inj (20ml) ONE (14:03)
--- NOTE | 2017-12-03 21:14 | CON ---
DATE: 12/03/2017 HISTORY OF PRESENT ILLNESS: The patient is admitted to the hospital having been seen by Dr. Bautista in May or June for the adenocarcinoma that was biopsied. He was not treated and went home and was basically lost to followup as I understand. CAT scan is done on this admission where he was admitted for rectal bleeding and hemoglobin of 4 with symptoms thereof. CAT scan shows a tumor on the left lateral side of the rectum, possibly a new tumor in the liver on the dome. The patient mostly speaks Creole. No current fever, chills, chest pain, shortness of breath and the history was obtained through the emergency room using the Service. He is legally blind from the glaucoma and cataracts, has internal hemorrhoids. ALLERGIES: NO KNOWN ALLERGIES. MEDICATIONS: None. REVIEW OF SYSTEMS: Basically, he denies. No fevers or chills, chest pain, shortness of breath. PHYSICAL EXAMINATION: VITAL SIGNS: Now normal having received seven units of blood. Consult with Dr. Bautista who should be back next week. LABORATORY DATA: In any case presently, laboratory shows a hemoglobin on admission of 4.8, presently 8.4 having received 3 units of packed cells. The MCV is low consistent with iron deficiency. Liver functions are normal, urine is unremarkable. IMPRESSION: Lower gastrointestinal bleed secondary to the known carcinoma of the rectum, possibly a liver lesion, presently unsure. PLAN: Check CEA, probably do an MRI of the rectum looking for infiltration, probably discuss with Dr. Jacobo although this is biopsied already so they will speak to him. Workup for liver lesion and metastatic disease. We will follow with you. Thank you very much for the consult. Jhonatan Hayes MD
[2017-12-03 21:15] LABS: BASO # 0.03 K/mm3 (0.0-2.0); BASO % 0.5 % (0.0-3.0); EOS # 0.2 (0.0-0.7); EOS % 2.6 % (1.5-5.0); GRAN # 4.06 (1.4-6.5); GRAN % 66.1 % (50.0-68.0); HEMOGLOBIN 7.7 g/dL (14.0-18.0); LYMPH # 1.4 (1.2-3.4); LYMPH % 23.1 % (22.0-35.0); MEAN CELL VOLUME 78.3 fl (80.0-105.0); MEAN CORPUSCULAR HEMOGLOBIN 24.9 pg (25.0-35.0); MEAN CORPUSCULAR HGB CONC 31.8 g/dl (31.0-37.0); MEAN PLATELET VOLUME 11.5 fl (7.0-11.0); MONO # 0.5 (0.1-0.6); MONO % 7.7 % (1.0-6.0); RBC 3.09 10^6/uL (3.5-6.1); RED CELL DISTRIBUTION WIDTH 16.6 % (11.5-14.5); WHITE BLOOD COUNT 6.1 10^3/ul (4.5-11.0)
[2017-12-03 21:25] LABS: HDL CHOLESTEROL 29 mg/dL (29-60)
[2017-12-03 21:34] LABS: IRON 12 ug/dL (45-180)
[2017-12-03 21:37] LABS: LDL CHOLESTEROL 45 mg/dL (0-129)
[2017-12-03 21:43] LABS: % IRON SATURATION 3 % (20-55); TOTAL IRON BINDING CAPACITY 384 ug/dL (261-462)
--- NOTE | 2017-12-03 23:41 | PN ---
DATE: 12/03/2017 SUBJECTIVE: The patient is seen and examined on the bedside. is sitting on the bedside also. The patient went for endoscopy today by Dr. Jacobo. No GI bleeding overnight. Received 3 units of packed RBC and appropriate hemoglobin response is there. The patient denies any pain, but complaining about his n.p.o. status. As per conservation with me, the patient said if he has to go to surgery, he will go for surgery. No nausea, vomiting or diarrhea. No headache. No dizziness. PHYSICAL EXAMINATION: VITAL SIGNS: Temperature 98.6, pulse 73, respiratory rate 14, blood pressure 122/80, pulse oximetry 100. HEENT: Head normocephalic, atraumatic. Eyes PERRLA. Extraocular muscles intact. Conjunctivae clear. Nose patent. Mucous membrane moist. NECK: Supple. No carotid bruit. No JVD or thyromegaly. CHEST: Bilaterally symmetrical. HEART: S1 and S2 positive. LUNGS: Clear to auscultation. ABDOMEN: Soft. Bowel sounds positive. No organomegaly. EXTREMITIES: No edema. No cyanosis. NEUROLOGICAL: The patient is awake and alert. Follows simple commands. LABORATORY DATA: White blood cells 7.5, hemoglobin 8.4, hematocrit 27.1, glucose 221. Sodium 147, potassium 4.2, BUN 13, creatinine 0.9, glucose 88. MEDICATIONS: Protonix. ASSESSMENT AND PLAN: Mr. Franco Olson is an 82-year-old male with anemia, has rectal adenocarcinoma with possibly liver metastasis, severe anemia, got 3 units of packed red blood cells. Clinically stable after 3 units of packed red blood cells. Continue to trend CBC, transfuse as needed. According to surgical team, the patient refused surgery, but when I talked to the patient, he agreed for surgery. 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 Ordered CT with the liver protocol for further evaluation of lesion. We will call Oncology consult. The patient states that he wants discussion to be held with the daughter. Continue IV fluid. Advance diet per Gastroenterology. P.r.n. pain and nausea medication. Appreciated surgical input. The patient was seen by Dr. Jacobo also. He did esophagogastroduodenoscopy. The patient has small duodenal bulb ulcer. It looks like healing. No source of active bleeding; Schatzki's ring, some mild hiatal hernia, gastritis. We will call Oncology consult. Otherwise, gastrointestinal and deep venous thrombosis prophylaxis. Repeat labs. We will follow up. Danielle Saavedra MD MTDD
[2017-12-04] MEDS: Pantoprazole 40mg/100mL NS 40 MG/100 ML BAG IVPB SCH ×5 (00:47→17:04)
--- NOTE | 2017-12-04 07:56 | CP.PCM.PN ---
Subjective - Date & Time of Evaluation Date of Evaluation: 12/04/17 Time of Evaluation: 06:50 - Subjective Subjective: Patient seen and examined at bedside this AM. Patient was transferred to the med /surgery floor yesterday. Patient denies any abdominal pain, any further GI bleeding, but has not had a bowel movement. Patient tolerated a CLD and denies any other symptoms, but complains about inability to eat Objective - Vital Signs/Intake and Output Vital Signs (last 24 hours): Temp Pulse Resp BP Pulse Ox 99 F 59 L 18 117/67 100 12/03/17 22:08 12/03/17 22:08 12/03/17 22:08 12/03/17 22:08 12/03/17 22:08 - Medications Medications: Current Medications Pantoprazole Sodium (Protonix 40mg Ivpb) 40 mg in 100 mls @ 20 mls/hr IVPB .Q5H LUCAS Last Admin: 12/04/17 05:51 Dose: 20 mls/hr - Labs Labs: 12/03/17 21:00 12/03/17 05:50 PT 12.2 SECONDS (9.4-12.5) 12/03/17 00:40 INR 1.07 (0.93-1.08) 12/03/17 00:40 APTT 26.1 Seconds (25.1-36.5) 12/03/17 00:40 - Constitutional Appears: Well, Non-toxic, No Acute Distress - Head Exam Head Exam: ATRAUMATIC, NORMOCEPHALIC - Eye Exam Eye Exam: Normal appearance. absent: Conjunctival injection, Scleral icterus - ENT Exam ENT Exam: Mucous Membranes Moist, Normal Oropharynx - Respiratory Exam Respiratory Exam: NORMAL BREATHING PATTERN. absent: Accessory Muscle Use, Respiratory Distress - GI/Abdominal Exam GI & Abdominal Exam: Soft. absent: Distended, Tenderness - Extremities Exam Extremities Exam: absent: Calf Tenderness, Pedal Edema, Tenderness - Neurological Exam Neurological Exam: Alert, Awake - Psychiatric Exam Psychiatric exam: Anxious, Normal Affect - Skin Skin Exam: Dry, Intact, Normal Color, Warm Assessment and Plan - Assessment and Plan (Free Text) Assessment: 82M with rectal adenocarcinoma and severe anemia Plan: F/U AM labs. Continue to trend CBC--patient's hgb 7.7 yesterday evening down from 8.4 yesterday AM Transfuse as needed--patient currently hemodynamically stable Diet management per GI--may be advanced from a surgical standpoint Patient at this time refusing surgery--will try to discuss further with family including options of radiation/oncology F/U liver protocol CT to evaluate the liver mets Discussed with Dr. Freddy Cuevas, PGY2
[2017-12-04 09:22] LABS: MEAN CELL VOLUME 78.5 fl (80.0-105.0); MEAN CORPUSCULAR HEMOGLOBIN 24.2 pg (25.0-35.0); MEAN CORPUSCULAR HGB CONC 30.9 g/dl (31.0-37.0); PLATELET COUNT 158 10^3/uL (120.0-450.0); RED CELL DISTRIBUTION WIDTH 16.8 % (11.5-14.5); WHITE BLOOD COUNT 4.8 10^3/ul (4.5-11.0)
[2017-12-04 09:28] LABS: HEMOGLOBIN 6.3 g/dL (14.0-18.0)
[2017-12-04 10:24] LABS: ALB/GLOB RATIO 1.1 (1.1-1.8); ALBUMIN 2.6 g/dL (3.0-4.8); ALT/SGPT 23 U/L (7-56); AST/SGOT 18 U/L (17-59); BLOOD UREA NITROGEN 12 mg/dL (7-21); CALCIUM 8.1 mg/dL (8.4-10.5); GFR AFRICAN-AMERICAN > 60; GFR NON-AFRICAN AMERICAN > 60
[2017-12-04 13:05] LABS: BASO # 0.03 K/mm3 (0.0-2.0); BASO % 0.6 % (0.0-3.0); EOS # 0.1 (0.0-0.7); EOS % 2.3 % (1.5-5.0); GRAN # 3.21 (1.4-6.5); GRAN % 68.2 % (50.0-68.0); LYMPH % 22.1 % (22.0-35.0); MEAN CELL VOLUME 78.2 fl (80.0-105.0); MEAN CORPUSCULAR HEMOGLOBIN 24.6 pg (25.0-35.0); MEAN CORPUSCULAR HGB CONC 31.4 g/dl (31.0-37.0); MEAN PLATELET VOLUME 12.7 fl (7.0-11.0); MONO # 0.3 (0.1-0.6); MONO % 6.8 % (1.0-6.0); RBC 2.48 10^6/uL (3.5-6.1); WHITE BLOOD COUNT 4.7 10^3/ul (4.5-11.0)
[2017-12-04 13:07] LABS: HEMOGLOBIN 6.1 g/dL (14.0-18.0)
--- NOTE | 2017-12-04 13:52 | CP.PCM.PN ---
Subjective - Date & Time of Evaluation Date of Evaluation: 12/04/17 Time of Evaluation: 13:30 - Subjective Subjective: Patient seen and examined at bedside. Patient hemoglobin came back as 6.3 this AM down from 7.7 yesterday. Repeated hgb came back 6.1. Patient's wbc, platelets , and albumen are also all decreased today. Patient is currently hemodynamically stable with HR 78, blood pressure 118/70, and temp 99.0. Two units are being transfused as per primary. Patient denies any abominal pain, nausea, vomiting, or any other symptoms. Spoke with Dr. Jacobo on the phone who expressed that he did not find any bleeding on EGD yesterday and since patient does not have any sign of bleeding clinically he would recommend following up the CBC after the two units and continue to monitor closely for hemodynamic instability. Spoke as well to Dr. Kirkpatrick on the phone. Also spoke to Dr. Hayes on the phone at length about the patient and the various recommendations. Also Explained the lab values and the reason for the blood to the patient who verbalized understanding of the situation and the need for more blood administration Objective - Vital Signs/Intake and Output Vital Signs (last 24 hours): Temp Pulse Resp BP Pulse Ox 99 F 68 16 118/70 100 12/04/17 13:38 12/04/17 13:38 12/04/17 13:38 12/04/17 13:38 12/04/17 06:00 Intake and Output: 12/04/17 12/04/17 06:59 18:59 Intake Total 25 Balance 25 - Medications Medications: Current Medications Pantoprazole Sodium (Protonix 40mg Ivpb) 40 mg in 100 mls @ 20 mls/hr IVPB .Q5H LUCAS Last Admin: 12/04/17 11:38 Dose: 20 mls/hr - Labs Labs: 12/04/17 12:50 12/04/17 09:00 PT 12.2 SECONDS (9.4-12.5) 12/03/17 00:40 INR 1.07 (0.93-1.08) 12/03/17 00:40 APTT 26.1 Seconds (25.1-36.5) 12/03/17 00:40 - Constitutional Appears: Well, Non-toxic, No Acute Distress - Head Exam Head Exam: ATRAUMATIC, NORMOCEPHALIC - ENT Exam ENT Exam: Mucous Membranes Moist, Normal Oropharynx - Respiratory Exam Respiratory Exam: NORMAL BREATHING PATTERN. absent: Accessory Muscle Use, Clear to Ausculation Bilateral - Cardiovascular Exam Cardiovascular Exam: RRR - GI/Abdominal Exam GI & Abdominal Exam: Soft. absent: Distended, Tenderness - Rectal Exam Additional comments: no external signs of bleeding, hemorrhoids, or fissures. Normal tone. Palpable mass in posterior rectal vault at approximately 6cm from the external anus. Small amount of dark brown stool in vault but no melena or gross blood. 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 CT from 12/02 reviewed and no extra-GI source of bleeding identified. Patient may remain on the med/surgical floor but may consider transfer to telemetry or ICU if patient becomes hemodynamically unstable or has sign of acute bleeding. Will continue to monitor closely. Discussed with Dr. Freddy Cuevas, PGY2
[2017-12-04] MEDS: Sucralfate 1 gm/10 ml Oral Susp UD PO SCH (16:27)
[2017-12-04 18:33] LABS: FOLATE 15.8 ng/mL
[2017-12-04 23:37] LABS: BASO # 0.02 K/mm3 (0.0-2.0); BASO % 0.3 % (0.0-3.0); EOS # 0.2 (0.0-0.7); EOS % 2.4 % (1.5-5.0); GRAN % 62.2 % (50.0-68.0); LYMPH # 1.7 (1.2-3.4); LYMPH % 27.5 % (22.0-35.0); MEAN CELL VOLUME 79.4 fl (80.0-105.0); MEAN CORPUSCULAR HEMOGLOBIN 25.5 pg (25.0-35.0); MEAN CORPUSCULAR HGB CONC 32.1 g/dl (31.0-37.0); MONO # 0.5 (0.1-0.6); MONO % 7.6 % (1.0-6.0); PLATELET COUNT 198 10^3/uL (120.0-450.0); RBC 3.69 10^6/uL (3.5-6.1); RED CELL DISTRIBUTION WIDTH 16.3 % (11.5-14.5); WHITE BLOOD COUNT 6.3 10^3/ul (4.5-11.0)
[2017-12-04 23:43] LABS: HEMOGLOBIN 9.4 g/dL (14.0-18.0)
--- NOTE | 2017-12-04 23:53 | PN ---
DATE: 12/04/2017 SUBJECTIVE: The patient is an 82-year-old male. The patient seen and examined at the bedside. Looking comfortable. No nausea, vomiting, or diarrhea. No hematuria or hematochezia. No headache. No dizziness. The patient is a very poor historian. Nurse, Denzel, did translation for me. According to the patient, he does not want to go for surgery. He wants to go home once, they come back for surgery. The patient was explained that his cancer is increasing and his hemoglobin was 4, then went up to 8 with blood transfusion, dropped back to 6, it means he is not safe to go home, but still he is refusing surgery, surgeon and Oncology is on the case. PHYSICAL EXAMINATION: VITAL SIGNS: Temperature is 99, pulse 59, respiratory rate 18, blood pressure 170/67, pulse oximetry 100. HEENT: Head normocephalic and atraumatic. Eyes: PERRLA. Extraocular muscles intact. Conjunctivae clear. Nose patent. Mucous membranes moist. NECK: Supple. No carotid bruits. No JVD or thyromegaly. CHEST: Bilaterally symmetrical. HEART: S1 and S2 positive. LUNGS: Clear to auscultation. ABDOMEN: Soft, nontender. No organomegaly. EXTREMITIES: No edema. No cyanosis. NEUROLOGIC: The patient is awake and alert. Moving all 4 extremities. No focal deficits. He is oriented x3. MEDICATION: Protonix. LABORATORY DATA: White blood cell is 6.1; hemoglobin on admission was 6.5, after blood transfusion it became 8.4 and today dropped back to 6.1; hematocrit 19.4; platelets 169. Sodium 145, potassium 3.8, calcium 8.1. Iron 12. Alkaline phosphatase 34. ASSESSMENT AND PLAN: Mr. Franco Olson is an 82-year-old male with acute on chronic anemia, status post packed red blood cells transfusion, hyperchloremia, hypocalcemia, iron deficiency, stool guaiac positive for blood. GI is on the case, status post esophagogastroduodenoscopy yesterday. Oncology is on the case. The patient has rectal adenocarcinoma and severe anemia, couple of packed red blood cells transfused. Appreciated GI, surgery, and oncology input. Put the patient on the remote telemetry. Gastrointestinal and deep venous thrombosis prophylaxis. Repeat labs. We will follow up. Danielle Saavedra MD [facility] # [id number]
--- NOTE | 2017-12-05 02:46 | PN ---
DATE: 12/04/2017 SUBJECTIVE: This patient was seen and evaluated earlier today. Patient is tolerating the diet. No bleeding per rectum. No abdominal pain. Patient's lab work today showed hemoglobin is about 6.1. I had multiple discussions with the patient's operating room surgical technologist and also with Dr. Arthur Aguila from Hematology. PHYSICAL EXAMINATION: VITAL SIGNS: Temperature 98.6, pulse 72, blood pressure is 130/72. HEENT: Atraumatic. Anicteric. NECK: Supple. HEART: S1 and S2 heard. LUNGS: Bilateral air entry present. ABDOMEN: Soft. There is no tenderness. EXTREMITIES: No cyanosis. No clubbing. RECTAL: Examination was performed by the operating room surgical technologist. There is no melena or bright red blood per rectum. LABORATORY DATA: Hemoglobin 6.1. It was 6.3 in the morning. Yesterday was 7.3. There is a concern that there is a significant drop in blood count. No obvious external source of blood loss noticed, otherwise. Patient did have upper GI endoscopy done on Wednesday, that was yesterday, showed diminutive duodenal ulcer, otherwise unremarkable. The large ulcer which was noticed before appeared to have healed. IMPRESSION: 1. Anemia, drop in blood count. No obvious bleeding. Patient had a repeat endoscopy done yesterday, showed hiatus hernia, Schatzki's ring, and diminutive duodenal ulcer, with clean base. No obvious active bleeding is noticed, otherwise. 2. Rectal adenocarcinoma. Was refusing the therapy before, even now he is reluctant about surgery. Would recommend now follow up of hemoglobin and hematocrit. Consider surgical followup regarding the rectal adenocarcinoma. 3. Anemia, drop in blood count. Rule out any gastrointestinal source of blood loss, no obvious noticed. RECOMMENDATIONS: Continue close surveillance. We will continue to closely follow up with his care and suggest further management based on the clinical course. Patient received 2 units of packed red blood cells. We will follow up the hemoglobin. If there is any active bleeding, we will consider bleeding scan. Patient did have colonoscopy 4 months ago. Rectal mass lesion noticed and biopsy was adenocarcinoma. Patient was reluctant for any intervention for that at that time. Thank you very much for allowing us to participate in the care of the patient. We will continue to closely follow up his care and suggest further management based on the clinical course. Cl Jacobo MD MTDVenkatesh
--- NOTE | 2017-12-05 04:00 | CON ---
DATE: 12/04/[address] Alan. CHIEF COMPLAINT: Severe anemia. HISTORY OF PRESENT ILLNESS: The patient is an 82-year-old Cambodian speaking male, seen on the medical floor where the patient noted to have been transfused 3 units of packed red blood cells since admission two days prior, the patient being admitted on 12/02/2017 for hemoglobin of 4.8. After transfusion yesterday, patient's hemoglobin was 8.4. However, today the hemoglobin was noted to be 6.3 with a repeat value of 6.1 early today. He is presently getting transfused blood with consideration for reevaluation of the patient to be returned to the Intensive Care Unit for which he was transferred yesterday versus remote telemetry in the interim as the patient is at high risk for hypoxemic events when the hemoglobin is dangerously low as it currently is to rule out acute GI bleed. The patient is known to suffer from adenocarcinoma of the rectum on a biopsy done on 07/07/[address] Jacobo. With the patient refusing surgery at that time with no follow up recently as per recommendations to do so. Patient did have an EGD done by Dr. Jacobo on 12/03/2017 yesterday, which showed a small duodenal bulb ulcer with no source of active bleeding, Schatzki's ring, small hiatal hernia, and gastritis. At present, he is resting. Denying any pain, somewhat lethargic, but in no acute distress with consideration for relocating the patient to be Intensive Care Unit versus remote telemetry depending on evaluation of the consultants as above. The patient was spoken to with the gas appliance adjuster. ALLERGIES: NO KNOWN ALLERGIES. MEDICATIONS: At present include Protonix IV. PAST MEDICAL HISTORY: Patient's past medical history is significant for adenocarcinoma of the rectum diagnosed in 06/2017; hypertension; legal blindness; anemia, status post transfusion; history of DJD; internal hemorrhoids; noncompliance with recommendations; questionable seizure activity. FAMILY HISTORY AND SOCIAL HISTORY: Patient has 11 children, reported to be alive and well. Nonsmoker. Non-ethanolic. REVIEW OF SYSTEMS: Twelve-point review of systems is done, just negative to questioning except for items mentioned in history of present illness. LABORATORY DATA: Patient's labs were done. Today, white blood cell count of 4.7, hemoglobin 6.1, hematocrit of 19.4, platelet count of 169,000. On admission, his hemoglobin was 4.8, status post transfusion of 3 units of packed cells and improved to 8.4, it is currently 6.1. His INR is 1.07 yesterday. His chem metabolic panel shows a normal chem metabolic panel, calcium of 8.1. Total protein 4.9. A CEA value was done in July, it was 0.7. Urinalysis is negative for blood sugar and protein. Stool for occult blood was positive. He has intrinsic factor blocking antibody positive dated 07/2015, on review of previous records. It should be noted the patient also had iron percent saturation of 3% two days prior with an iron value of . CT scan of the abdomen and pelvis done on 12/02, showed no acute abdominal pelvic abnormality, left colonic diverticulosis without acute diverticulitis, focal thickening of left posterior lateral rectal wall with adenocarcinoma was diagnosed there in June and 8 mm lesion in the hepatic dome. It should be noted that the patient never had a PET CT scan. According to hospital records, that were cleaned from 2012 to 12/02/2017.. Chest x-ray was done 12/02/2017, it was read as no active disease. CAT scan of his head was done on 12/02/2017, and it was read as no acute findings. ASSESSMENT: For this patient is that of severe anemia symptomatic, suspected gastrointestinal bleed, history of adenocarcinoma of the rectum, noncompliance, peptic ulcer disease, questionable liver metastasis, hypertension, questionable history of seizure disorder. PLAN: After conversation with Dr. Alan and surgical orderly and the cannery worker, Dr. Romero with the patient still having foreign student adviser in Cambodian. Recommendation is transfused 2 units of packed red blood cells, monitor clinically, with transfer to the Intensive Care Unit versus remote telemetry floor with replenishment of blood products as the patient will have over approximately 5 units of blood transfused. Consideration for FFP as per Dr. Alan. The prognosis for this patient is guarded. This is a complex patient with a comprehensive medically necessary and appropriate visit carried out in excess of 90 minutes of [id number] time with recommendation of the patient to be transferred to remote telemetry versus the Intensive Care Unit for his acute severe anemia with considerations for recurrent GI bleed. Arthur MD [facility] # [id number]
[2017-12-05] MEDS: Pantoprazole 40mg/100mL NS 40 MG/100 ML BAG IVPB SCH ×3 (05:48→22:05)
[2017-12-05] MEDS: Sucralfate 1 gm/10 ml Oral Susp UD PO SCH ×2 (05:51→17:23)
--- NOTE | 2017-12-05 08:00 | CP.PCM.PN ---
Subjective - Date & Time of Evaluation Date of Evaluation: 12/05/17 Time of Evaluation: 07:00 - Subjective Subjective: Patient seen and examined at bedside this AM. Patient had confusion overnight, wanting to climb out of bed and refusing lab work to be drawn. Patient was able to be temporarily re-directed. Repeat Hgb was 9.4 from 6.2 after 2 units of PRBC. Denies any pain, nausea, vomiting, or any other symptoms. No bowel function yet, no melena or hematochezia. Tolerating CLD Objective - Vital Signs/Intake and Output Vital Signs (last 24 hours): Temp Pulse Resp BP Pulse Ox 98.2 F 60 20 132/66 100 12/05/17 06:00 12/05/17 06:00 12/05/17 06:00 12/05/17 06:00 12/05/17 06:00 Intake and Output: 12/05/17 12/05/17 06:59 18:59 Intake Total 325 Output Total 400 Balance -75 - Medications Medications: Current Medications Acetaminophen (Tylenol 325mg Tab) 650 mg PO Q4H PRN PRN Reason: Pain, Mild (1-3) Last Admin: 12/04/17 16:03 Dose: 650 mg Pantoprazole Sodium (Protonix 40mg Ivpb) 40 mg in 100 mls @ 20 mls/hr IVPB .Q5H LUCAS Last Admin: 12/05/17 05:48 Dose: 20 mls/hr Iron Sucrose 100 mg/ Sodium (Chloride) 105 mls @ 210 mls/hr IVPB ONCE ONE Stop: 12/05/17 10:53 Sucralfate (Carafate Oral Susp) 1 gm PO 0600,1600 [facility] Last Admin: 12/05/17 05:51 Dose: Not Given - Labs Labs: 12/04/17 23:10 12/04/17 09:00 PT 12.2 SECONDS (9.4-12.5) 12/03/17 00:40 INR 1.07 (0.93-1.08) 12/03/17 00:40 APTT 26.1 Seconds (25.1-36.5) 12/03/17 00:40 - Constitutional Appears: Well, Non-toxic, No Acute Distress - Head Exam Head Exam: ATRAUMATIC, NORMOCEPHALIC - Eye Exam Eye Exam: Normal appearance. absent: Conjunctival injection, Scleral icterus - ENT Exam ENT Exam: Mucous Membranes Moist, Normal Oropharynx - Respiratory Exam Respiratory Exam: NORMAL BREATHING PATTERN. absent: Accessory Muscle Use, Respiratory Distress - Cardiovascular Exam Cardiovascular Exam: RRR - GI/Abdominal Exam GI & Abdominal Exam: Soft. 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 Improved above expected last night after 2 units of blood F/u GI recs Continue to follow up strict intake and output especially urinary output Transfuse as needed for hemodynamic instability or acute drop in H/H Continue CLD PRN pain and nausea medication No surgical intervention planned at this time as patient does not want surgery-- may consider radiation/chemotherapy Discussed with DR. Hayes, further recs per him Priti Cuevas, PGY2
[2017-12-05 09:01] LABS: HEMOGLOBIN 9.9 g/dL (14.0-18.0); MEAN CELL VOLUME 79.7 fl (80.0-105.0); MEAN CORPUSCULAR HEMOGLOBIN 25.4 pg (25.0-35.0); MEAN CORPUSCULAR HGB CONC 31.9 g/dl (31.0-37.0); PLATELET COUNT 188 10^3/uL (120.0-450.0); RBC 3.89 10^6/uL (3.5-6.1); RED CELL DISTRIBUTION WIDTH 16.4 % (11.5-14.5); WHITE BLOOD COUNT 5.2 10^3/ul (4.5-11.0)
[2017-12-05 09:08] LABS: ALB/GLOB RATIO 1.3 (1.1-1.8); ALBUMIN 3.4 g/dL (3.0-4.8); ALT/SGPT 27 U/L (7-56); AST/SGOT 24 U/L (17-59); BLOOD UREA NITROGEN 11 mg/dL (7-21); CALCIUM 8.6 mg/dL (8.4-10.5); GFR AFRICAN-AMERICAN > 60; GFR NON-AFRICAN AMERICAN > 60
[2017-12-05] MEDS ORDERED: Iron Sucrose 100 mg/5 ml Inj IVP ONE (10:24)
[2017-12-05] MEDS: POLYETHYLENE GLYCOL 3350 17 GM/Dose PACKET PO SCH ×2 (12:09→17:23)
--- NOTE | 2017-12-05 18:15 | PN ---
DATE: 12/05/2017 SUBJECTIVE: This patient was seen and evaluated earlier today. The patient did not have any bowel movement. Complains of constipation. Tolerating the diet. PHYSICAL EXAMINATION: VITAL SIGNS: Temperature is 98.2, pulse 70, blood pressure is 132/66. HEENT: Atraumatic, anicteric. NECK: Supple. HEART: S1 and S2 heard. LUNGS: Bilateral air entry present. ABDOMEN: Soft. There is no mass palpable. EXTREMITIES: No cyanosis. No clubbing. LABORATORY DATA: Hemoglobin has gone up to 9.9, hematocrit 31, WBC 5.2, and platelets 188. BUN 11, creatinine 1. IMPRESSION AND PLAN: 1. This is an 82-year-old patient with a history of adenocarcinoma, admitted with severe anemia. He is admitted with a hemoglobin of 4.8. He was transfused totally 5 units. Hemoglobin is now 9.9. No obvious witnessed melena or gastrointestinal bleeding. The patient has a history of large duodenal ulcer, had an endoscopy done on Wednesday, found to have only diminutive clean based duodenal ulcer noticed. No bleeding noticed. The patient also found to have a hiatus hernia with Schatzki ring. 2. Adenocarcinoma, refusing surgery before. The patient did have CT liver protocol done. It is reasonable to consider CT of the chest in view of the rectal lesion was very close to the anal verge. 3. Anemia, drop in blood count could be due to dilutional. Last albumin level was also low. The patient did receive two units of transfusion but hemoglobin has gone up to 9.9, stable. The patient' previous colonoscopy reports done in June was also reviewed. Would not consider repeating the colonoscopy at this time. 4. We will start the patient on MiraLax for constipation. Thank you very much for allowing us to participate in the care of the patient. Cl Jacobo MD
--- NOTE | 2017-12-05 18:54 | PN ---
DATE: 12/05/2017 [facility] floor. SUBJECTIVE: The patient is an 82-year-old Macedonian-speaking male, admitted for a significantly low hemoglobin of 4.8. Transfused 3 units of packed red blood cells with a repeat hemoglobin yesterday noted to be 6.1. He was transfused an additional 2 units of packed red blood cells for a total of 5 units transfused since admission with the patient's hemoglobin today noted to be 9.9. Other testing for this patient revealed that he has a significantly low percent saturation of iron at 3% and IV iron will be recommended in order to correct his significant anemia. Hopefully, we will no longer need to transfuse; however, this will be done as indicated. His CEA value was 0.6. Also, the patient is known to as had a positive biopsy done in 06/2017 showing adenocarcinoma of the rectum, but the patient at that point had refused surgery, however. He also recently had an EGD by Dr. Jacobo. It showed a small duodenal bulb ulcer with gastritis. It will be noted that after conversation with Dr. Alan, the patient may be a candidate for radiation in this area. We will ask for consult with Dr. Katheryn Huertas for her recommendations. At present, the patient is in no acute distress, resting comfortably. OBJECTIVE PHYSICAL EXAMINATION: VITAL SIGNS: Temperature 98.2, pulse 70, respirations 20, blood pressure 132/66, pulse ox 100%. HEENT: Unremarkable. NECK: Supple. HEART: Regular rate. LUNGS: Clear. ABDOMEN: Soft, nontender. EXTREMITIES: No edema. SKIN: Warm and dry. NEUROLOGIC: Awake, alert. LABORATORY DATA: The patient's labs were done. White blood cell count of 5.2; hemoglobin 9.9, increased from 6.1 yesterday with 2 units of packed cells. His chem metabolic panel is within normal range. Urinalysis on 12/02/2017 was negative; however, stool for occult blood was positive on 12/02/2017. A liver CT scan was done, it is not read yet. ASSESSMENT: The assessment for this patient is that of severe symptomatic anemia, peptic ulcer disease, adenocarcinoma of the rectum, iron deficiency anemia, noncompliance, questionable liver metastasis, hypertension, questionable seizure disorder. PLAN: Plan for this patient after conversation with Dr. Waqas is to begin IV iron. We will give it daily for 3 days. Also, vitamin B testing was also noted to be significantly low. We will ask for vitamin B also to be given IM as directed. His vitamin B12 level was less than 159 and that was on 12/03/2017. The plan for this patient after conversation with as above is to recommend a consult with Dr. Katheryn Huertas, radiation oncologist as the patient is refusing his rectal surgery with continued admissions for significant gastrointestinal bleeds history. We will also monitor clinically and with labs as his current anemic indices are significantly improved. Prognosis for this patient is guarded. This is a complex patient with a comprehensive medically necessary and appropriate visit carried out in excess of 20 minutes [id number] time with the patient seen with the software technical lead as indicated. Arthur Aguila MD
--- NOTE | 2017-12-05 22:51 | PN ---
DATE: 12/05/2017 SUBJECTIVE: The patient is an 82-year-old male. The patient seen and examined on the bedside. Looking comfortable, but anxious and restless. He is on one-to-one. His son, Mr. Connelly is on the bedside. Discussion done with Mr. Connelly; from 12 kids, he is one of his son. The patient do not have any complaints. No nausea, vomiting, or diarrhea. No hematuria or hematochezia. No swelling of the legs. No chest pain, no palpitations. PHYSICAL EXAMINATION: VITAL SIGNS: Temperature is 98.2, pulse 70, blood pressure 138/66, respiratory rate 18. HEENT: Head normocephalic and atraumatic. Eyes: PERRLA. Extraocular muscles intact. Conjunctivae clear. Nose patent. NECK: Supple. No carotid bruits. No JVD or thyromegaly. CHEST: Bilaterally symmetrical. HEART: S1 and S2 positive. LUNGS: Clear to auscultation. ABDOMEN: Soft, bowel sounds present. No organomegaly. EXTREMITIES: No edema. No cyanosis. NEUROLOGIC: The patient is awake and alert. Moving all 4 extremities. No focal deficits. MEDICATION: Carafate, iron, MiraLax, Protonix, Tylenol, B12. LABORATORY DATA: White blood cells 5.3, hemoglobin 9.9, hematocrit 31, platelets 188. Sodium 142, potassium 4, BUN 11, creatinine 1, calcium 8.6. ASSESSMENT AND PLAN: Mr. Franco Olson is an 82-year-old male with anemia, hyperchloremia, hypocalcemia, iron deficiency, stool occult blood positive, seen by Dr. Cl Jacobo with adenocarcinoma, admitted with severe anemia, hemoglobin now is 9.9. No obvious witnessed melena or gastrointestinal bleeding. The patient has a history of a large duodenal ulcer, had an endoscopy done on Wednesday, found to have only diminutive clean based duodenal ulcer; as per Dr. Jacobo, no bleeding is noticed. The patient also found to have hiatal hernia with Schatzki ring. The patient has adenocarcinoma, but refusing surgery, this is happening some long time. The patient did have CT of the liver, protocol done, waiting for the result. The patient also received two units of packed red blood cells that brought hemoglobin to 9.9. The patient has colonoscopy done in June, reviewed by Dr. Jacobo. Dr. Jacobo is not thinking to repeat colonoscopy at this time. According to him, he receiving MiraLax for constipation. Seen by Dr. Jhonatan Hayes of surgery. Discussion done with the patient's son, Godwin, one of the 12 children, informed him his father's condition and his father's refusal of the treatment. He is talking to his father. We are keeping patient one-to-one. He is restless. Repeat labs. We will follow up. Danielle Saavedra MD
[2017-12-06] MEDS: Pantoprazole 40mg/100mL NS 40 MG/100 ML BAG IVPB SCH ×2 (04:00→21:41)
[2017-12-06 06:40] LABS: HEMOGLOBIN 9.6 g/dL (14.0-18.0); MEAN CELL VOLUME 80.2 fl (80.0-105.0); MEAN CORPUSCULAR HEMOGLOBIN 25.3 pg (25.0-35.0); MEAN CORPUSCULAR HGB CONC 31.6 g/dl (31.0-37.0); MEAN PLATELET VOLUME 11.8 fl (7.0-11.0); RBC 3.79 10^6/uL (3.5-6.1); RED CELL DISTRIBUTION WIDTH 16.9 % (11.5-14.5); WHITE BLOOD COUNT 5.8 10^3/ul (4.5-11.0)
[2017-12-06 07:10] LABS: ALB/GLOB RATIO 1.2 (1.1-1.8); ALBUMIN 3.2 g/dL (3.0-4.8); ALT/SGPT 24 U/L (7-56); AST/SGOT 18 U/L (17-59); BLOOD UREA NITROGEN 13 mg/dL (7-21); CALCIUM 8.7 mg/dL (8.4-10.5); GFR AFRICAN-AMERICAN > 60; GFR NON-AFRICAN AMERICAN > 60
[2017-12-06] MEDS: Sucralfate 1 gm/10 ml Oral Susp UD PO SCH ×2 (07:23→18:10)
--- NOTE | 2017-12-06 07:43 | CP.PCM.PN ---
Subjective - Date & Time of Evaluation Date of Evaluation: 12/06/17 Time of Evaluation: 07:40 - Subjective Subjective: General Surgery Note for Dr. Bautista (Dr. Hayes covering) Patient seen and examined at bedside. No acute event overnight. Patient hgb is 9.6 today. Patient denies pain. He does not report any bloody BM. He is tolerating diet. He has no complaints. Patient not interested in surgical intervention. Objective - Vital Signs/Intake and Output Vital Signs (last 24 hours): Temp Pulse Resp BP Pulse Ox 97.4 F L 64 20 166/88 H 95 12/05/17 17:52 12/05/17 22:00 12/05/17 17:52 12/05/17 17:52 12/05/17 17:52 Intake and Output: 12/06/17 12/06/17 06:59 18:59 Intake Total 600 Balance 600 - Medications Medications: Current Medications Acetaminophen (Tylenol 325mg Tab) 650 mg PO Q4H PRN PRN Reason: Pain, Mild (1-3) Last Admin: 12/04/17 16:03 Dose: 650 mg Cyanocobalamin (Vitamin B12 1000 Mcg/Ml Inj) 1,000 mcg IM DAILY [facility] Stop: 12/07/17 11:31 Last Admin: 12/05/17 12:25 Dose: 1,000 mcg Pantoprazole Sodium (Protonix 40mg Ivpb) 40 mg in 100 mls @ 20 mls/hr IVPB .Q5H [facility] Last Admin: 12/06/17 04:00 Dose: 20 mls/hr Iron Sucrose 100 mg/ Sodium (Chloride) 105 mls @ 210 mls/hr IVPB DAILY [facility] Stop: 12/07/17 12:03 Polyethylene Glycol (Miralax) 17 gm PO BID [facility] Last Admin: 12/05/17 17:23 Dose: 17 gm Sucralfate (Carafate Oral Susp) 1 gm PO 0600,1600 [facility] Last Admin: 12/06/17 07:23 Dose: 1 gm - Labs Labs: 12/06/17 06:30 12/06/17 06:30 PT 12.2 SECONDS (9.4-12.5) 12/03/17 00:40 INR 1.07 (0.93-1.08) 12/03/17 00:40 APTT 26.1 Seconds (25.1-36.5) 12/03/17 00:40 - Additional Findings Additional findings: - Constitutional Appears: Well, Non-toxic, No Acute Distress - Head Exam Head Exam: ATRAUMATIC, NORMOCEPHALIC - Eye Exam Eye Exam: Normal appearance. absent: Conjunctival injection, Scleral icterus - ENT Exam ENT Exam: Mucous Membranes Moist, Normal Oropharynx - Respiratory Exam Respiratory Exam: NORMAL BREATHING PATTERN. absent: Accessory Muscle Use, Respiratory Distress - Cardiovascular Exam Cardiovascular Exam: RRR - GI/Abdominal Exam GI & Abdominal Exam: Soft. 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 Hayes (covering for Dr. Bautista) Jai Chavez PGY1
--- NOTE | 2017-12-06 08:55 | CP.PCM.CON ---
History of Present Illness - History of Present Illness History of Present Illness: Mr Olson is a 82 year old gentleman who was diagnosed with rectal cancer in June 2017. At that time, he refused surgery. He was admitted a few days ago with a near syncopal episodes and was found to have a low H/H. He was transfused with pRBC. During his hospitalization, he had a CT of the abdomen and pelvis which revealed a lesion along the rectal wall. He once again is refusing surgery. We were asked to see him to discuss the possibility of radiation Past Patient History - Infectious Disease Hx of Infectious Diseases: None - Tetanus Immunizations Tetanus Immunization: Unknown - Past Social History Smoking Status: Never Smoked - CARDIAC Hx Hypertension: Yes - PULMONARY Hx Respiratory Disorders: No - NEUROLOGICAL Other/Comment: involuntary tick - HEENT Hx Blind: Yes (Legally blind) Hx Cataracts: Yes Other/Comment: legally blind from glaucoma and cataracts as per pt and , r eye cataract sx scheduled next month - RENAL Hx Chronic Kidney Disease: No - ENDOCRINE/METABOLIC Hx Endocrine Disorders: No - HEMATOLOGICAL/ONCOLOGICAL Hx Blood Transfusions: Yes (YESTERDAY 12/02/17) Hx Blood Transfusion Reaction: No - INTEGUMENTARY Hx Dermatological Problems: No - MUSCULOSKELETAL/RHEUMATOLOGICAL Hx Musculoskeletal Disorders: Yes Hx Falls: Yes - GASTROINTESTINAL Hx Gastroesophageal Reflux: Yes - GENITOURINARY/GYNECOLOGICAL Hx Genitourinary Disorders: No - PSYCHIATRIC Hx Psychophysiologic Disorder: No - SURGICAL HISTORY Hx Surgeries: No - ANESTHESIA Hx Anesthesia Reactions: No Hx Malignant Hyperthermia: No Meds Allergies/Adverse Reactions: Allergies Allergy/AdvReac Type Severity Reaction Status Date / Time No Known Allergies Allergy Unverified 11/26/12 01:02 - Medications Medications: Current Medications Acetaminophen (Tylenol 325mg Tab) 650 mg PO Q4H PRN PRN Reason: Pain, Mild (1-3) Last Admin: 12/04/17 16:03 Dose: 650 mg Cyanocobalamin (Vitamin B12 1000 Mcg/Ml Inj) 1,000 mcg IM DAILY [facility] Stop: 12/07/17 11:31 Last Admin: 12/05/17 12:25 Dose: 1,000 mcg Pantoprazole Sodium (Protonix 40mg Ivpb) 40 mg in 100 mls @ 20 mls/hr IVPB .Q5H [facility] Last Admin: 12/06/17 04:00 Dose: 20 mls/hr Iron Sucrose 100 mg/ Sodium (Chloride) 105 mls @ 210 mls/hr IVPB DAILY [facility] Stop: 12/07/17 12:03 Polyethylene Glycol (Miralax) 17 gm PO BID [facility] Last Admin: 12/05/17 17:23 Dose: 17 gm Sucralfate (Carafate Oral Susp) 1 gm PO 0600,1600 [facility] Last Admin: 12/06/17 07:23 Dose: 1 gm Physical Exam - Head Exam Head Exam: NORMAL INSPECTION - Respiratory Exam Respiratory Exam: Clear to Auscultation Bilateral - Cardiovascular Exam Cardiovascular Exam: REGULAR RHYTHM - GI/Abdominal Exam GI & Abdominal Exam: Normal Bowel Sounds Results - Vital Signs Recent Vital Signs: Last Vital Signs Temp 98.2 F 12/06/17 06:00 Pulse 52 L 12/06/17 06:00 Resp 18 12/06/17 06:00 BP 119/67 12/06/17 06:00 Pulse Ox 98 12/06/17 06:00 - Labs Result Diagrams: 12/06/17 06:30 12/06/17 06:30 Labs: Laboratory Results - last 24 hr 12/03/17 12/05/17 12/05/17 21:00 08:30 08:30 WBC 5.2 RBC 3.89 Hgb 9.9 L Hct 31.0 L MCV 79.7 L MCH 25.4 MCHC 31.9 RDW 16.4 H Plt Count 188 MPV Sodium 142 Potassium 4.0 Chloride 111 H Carbon Dioxide 21 Anion Gap 14 BUN 11 Creatinine 1.0 Est GFR ( Amer) > 60 Est GFR (Non-Af Amer) > 60 Random Glucose 103 Hemoglobin A1c 6.6 H Calcium 8.6 Phosphorus 3.4 Magnesium 1.8 Total Bilirubin 0.8 AST 24 ALT 27 Alkaline Phosphatase 40 Total Protein 6.1 Albumin 3.4 Globulin 2.7 Albumin/Globulin Ratio 1.3 Carcinoembryonic Ag 12/05/17 12/06/17 12/06/17 08:30 06:30 06:30 WBC 5.8 RBC 3.79 Hgb 9.6 L Hct 30.4 L MCV 80.2 MCH 25.3 MCHC 31.6 RDW 16.9 H Plt Count 196 MPV 11.8 H Sodium 145 Potassium 4.0 Chloride 110 H Carbon Dioxide 25 Anion Gap 14 BUN 13 Creatinine 1.0 Est GFR ( Amer) > 60 Est GFR (Non-Af Amer) > 60 Random Glucose 86 Hemoglobin A1c Calcium 8.7 Phosphorus 3.8 Magnesium 1.9 Total Bilirubin 0.4 AST 18 ALT 24 Alkaline Phosphatase 42 Total Protein 5.8 Albumin 3.2 Globulin 2.6 Albumin/Globulin Ratio 1.2 Carcinoembryonic Ag 0.6 Assessment & Plan - Assessment and Plan (Free Text) Assessment: Mr Olson is a 82 year old gentleman with a bleeding rectal cancer. He is refusing surgery. He recently had a blood transfusion due to low H/H. We spoke to him today with translation band manager, however he was not competent and able to engage in a conversation about radiation. He kept reiterating that he does not want surgery. We could not get him to discuss alternative treatments. We attempted to contact his and daughter with the currency exchange specialist to discuss radiation. Unfortunately, they did not chart picker the phone. We will attempt again later today or tomorrow. Currently, his cognitive state and confusion worries us about whether it would be feasible to get him to cooperate and give him radiation
[2017-12-06] MEDS: POLYETHYLENE GLYCOL 3350 17 GM/Dose PACKET PO SCH ×2 (10:19→18:10)
--- NOTE | 2017-12-06 13:59 | CT ---
PROCEDURE: CT scan of the abdomen pelvis dated the 12/05/2017. HISTORY: Liver lesion. Possible rectal on metastasis. COMPARISON: Comparison made with prior noncontrast CT scan abdomen pelvis 12/02/2017 TECHNIQUE: Contiguous helical/ transaxial images of the abdomen and pelvis performed before and following intravenous injection of approximately 150 cc of Omnipaque 350 contrast material. Reformats generated. Radiation dose: Total exam DLP = 1085.88 mGy-cm. This CT exam was performed using one or more of the following dose reduction techniques: Automated exposure control, adjustment of the mA and/or kV according to patient size, and/or use of iterative reconstruction technique. . FINDINGS: LOWER THORAX: Minor linear atelectasis/ scarring changes both lung bases including the middle lobe and lingular regions. Some vague at dependent/passive type atelectasis also present both posterior sulci. . No evidence of basilar pneumothorax. Heart is enlarged. There is a small hiatal hernia with slight wall thickening of the distal esophagus that could be due to protrusion of gastric mucosa. Possibility of esophagitis not excluded. Mild non changes of bilateral gynecomastia. . LIVER: The liver exhibits normal size measuring approximately 14 cm in CC dimension. Mild diffuse fatty hepatic infiltration. Previously noted small approximately 10 mm x 7 mm low-attenuation focus peripheral margin superior aspect right lobe liver again noted. This lesion exhibits Hounsfield units in the single digits on noncontrast CT scan with increased on Hounsfield units on the post contrast study estimated approximately 30. This could represent a small cyst or possibly hemangioma. There is another very tiny approximately 4 mm low-attenuation focus left lobe liver which could represent volume averaging of the fissure however another tiny lesion with similar differential diagnosis in this location not excluded. Follow-up CT scan at interval could be performed to assess stability. Alternately, pre and post-contrast MRI of the liver could be performed for further evaluation. Portal and splenic veins are opacified. GALLBLADDER AND BILE DUCTS: The gallbladder appears incompletely distended which may in part account for slight thick-walled appearance. No obvious intraluminal gallbladder calculi PANCREAS: Pancreas is slightly atrophic and fatty replaced. No obvious pancreatic masses collections or calcifications. SPLEEN: Spleen exhibits normal size and attenuation pattern without masses collections or calcifications. ADRENALS: Slightly nodular appearing right adrenal gland. KIDNEYS AND URETERS: Kidneys demonstrate symmetric nephrograms. No evidence of nephrolithiasis or hydronephrosis. There is a small, approximately 12.4 x 9.7 mm elliptical shaped low-attenuation anteromedial cortex mid pole left kidney may represent cyst. . Small approximately 9 mm x 7.5 mm low-attenuation focus medial cortex mid to lower pole left right kidney may also represent cyst. Followup ultrasound could confirm. BLADDER: The urinary bladder is physiologically distended. No evidence of intraluminal urinary bladder calculi. . Re- demonstrated is suspected small bladder diverticulum along the right post oral lateral inferior margin of the urinary bladder REPRODUCTIVE: Prostate gland measures approximately 4.2 cm in transverse dimension. Few tiny prostatic calcifications are present. APPENDIX: The appendix in is not seen with complete certainty (possibly collapsed seen on axial image number [id number]) however no evidence of inflammatory changes seen in the right lower quadrant of the abdomen. . Note that the appendix was visible on the prior 12/02/2017 study and appeared unremarkable BOWEL: Evaluation of the bowel is limited due to the lack of oral contrast material. Stomach is distended with liquid/food debris and air. Visualized loops of small bowel exhibit normal contour and caliber. No evidence of acute mechanical small bowel obstruction. Note that several distal loops small bowel are fluid-filled ; rule out diarrheal illness. R Few scattered colonic diverticula are present. Re- demonstrated is asymmetric wall thickening of the rectum. Rule out air rectal wall mass -carcinoma common hemorrhoids and/or some combination of the above with under opacified stool. . Colonoscopy recommended for further evaluation if not already recently performed. PERITONEUM: Unremarkable. No fluid collection. No free air. LYMPH NODES: Unremarkable. No enlarged lymph nodes. VASCULATURE: Unremarkable. No aortic aneurysm. . There may be a 2nd smaller focus left lobe liver bordering the fissure BONES: The there are no acute compression fractures no retropulsed fragments. Fusion changes of the L2 and L3 segments again noted. Clinical correlation recommended. Multilevel degenerative spondylosis of lower thoracic and lumbar spine. . There is mild levoscoliosis centered at the L3-L4 level. OTHER FINDINGS: None. IMPRESSION: Re- demonstrated is a small approximately 12.4 mm low-attenuation focus right lobe liver that could represent small cyst or hemangioma. There may also be a 2nd smaller of low-attenuation focus left lobe liver bordering the fissure. This too could represent a small cyst or hemangioma. Followup interval could be performed to assess stability. Alternatively,. Postcontrast MRI of the liver could be performed to confirm. Probable small bilateral renal cysts as above. Renal ultrasound followup could confirm Re- demonstrated is asymmetric rectal wall thickening is; rule out rectal wall mass/ carcinoma versus possibility of hemorrhoids or some combination of the the above with under opacified stool. Colonoscopy followup recommended. Slightly nodular appearing gland right adrenal gland.
--- NOTE | 2017-12-06 16:46 | PN ---
DATE: 12/06/2017 This is [facility]'s hospital visit on the remote telemetry floor. SUBJECTIVE: The patient is an 82-year-old Cameroonian/Creole-speaking male, admitted for a hemoglobin of 4.8, transfused total of 5 units of packed red blood cells, now IV iron being given with good effect as the patient's hemoglobin today is reportedly 9.6 with the patient in no acute distress, lying in bed with the patient not cooperative as far as the out of bed to the chair at this point. Also, known to refuse surgery for his known adenocarcinoma of the rectum diagnosed in 06/2017. However, the patient did have a visit with Dr. Katheryn Huertas, radiation oncologist with possible treatment with palliative radiation for his cancer as the patient refuses surgery. He was seen with his at the bedside, who acts as engineer third assistant. OBJECTIVE PHYSICAL EXAMINATION: VITAL SIGNS: Temperature 98.2, pulse 52, respirations 18, blood pressure 119/67, pulse ox 98%. HEENT: Unremarkable. Tongue is moist and midline. NECK: Supple. HEART: Regular rate. LUNGS: Clear. ABDOMEN: Soft, nontender. EXTREMITIES: No edema. SKIN: Warm and dry. NEUROLOGIC: Awake and alert. LABORATORY DATA: The patient's labs were done. White blood cell count of 5.8; hemoglobin of 9.6, up from 6.1 two days prior; hematocrit of 30.4; platelet count of 196,000. His chem metabolic panel is completely within normal range. Urinalysis on admission was negative; however, stool for occult blood was positive then. The patient did have a liver CT done yesterday. The impression was redemonstrated small approximately 12.4 mm low attenuation focus, right lower lobe, which could represent small cystic hemangioma. Smaller second focus bordering the fissure, possibly small cystic hemangioma. Also, bilateral renal cysts, redmonstration of rectal wall thickening, carcinoma versus hemorrhoids. Slightly nodular-appearing right adrenal gland. ASSESSMENT: The assessment for this patient is that of adenocarcinoma of the rectum; severe anemia, status post transfusion; iron deficiency; duodenal ulcer; hypertension; questionable history of seizure disorder. PLAN: The plan for this patient after conversation with Dr. Alan and Dr. Jacobo is to as per consult with Dr. Katheryn Huertas, Radiation Oncology, now with the acute bleed seems to have been stabilized with consideration for palliative radiation should he be a candidate and agreeable. This was explained to him in Cameroonian as per nursing staff so the patient is able to understand these recommendations. We will monitor clinically with labs. We will also give IV iron. He is also noted to be B12 deficient for which vitamin B12 will be given subcu. Carafate was also added to his Protonix IV. We will also ask for a CT scan of the chest with no contrast as per Dr. Jacobo's recommendation as the area where his cancer was noted at the anal verge does have blood supply to the lungs with this to be done to rule out metastatic disease there. The prognosis for this patient is guarded. This is a complex patient with a comprehensive medically necessary and appropriate visit carried out in excess of 30 minutes with [id number] time and also with speaking to the patient's family, his and nursing staff and with Dr. Jacobo regarding his care. Arthur Aguila MD
--- NOTE | 2017-12-07 03:20 | PN ---
DATE: 12/06/2017 SUBJECTIVE: The patient is an 82-year-old male. The patient was seen and examined at bedside on 12/06/2017. Patient's son, Reno, was sitting on the bedside. He did translation for me. Patient looks a little bit restless, repeatedly saying that he does not want surgery, he does not want to listen anything; and upon explanation, he said he understands everything. He is on one-to-one, sometimes getting restless. The Oncology team and Katheryn Huertas, radiation oncologist, is on the case. Patient has adenocarcinoma. No nausea, vomiting, or diarrhea. No hematuria or hematochezia. No headache. No dizziness. No chest pain. No palpitation. PHYSICAL EXAMINATION: VITAL SIGNS: Temperature 98.2, pulse 52, respiratory rate 18, blood pressure 119/67, pulse oximetry 98. HEENT: Head, normocephalic and atraumatic. Eyes, PERRLA. Extraocular muscles intact. Conjunctivae clear. Nose patent. Mucous membrane moist. NECK: Supple. No carotid bruit. No JVD or thyromegaly. CHEST: Bilaterally symmetrical. HEART: S1, S2 positive. LUNGS: Clear to auscultation. ABDOMEN: Soft. Bowel sounds present. No organomegaly. EXTREMITIES: No edema. No cyanosis. NEUROLOGIC: Patient is awake, alert. Moving all four extremities. No focal deficits. LABORATORY DATA: White blood cell is 5.8, hemoglobin 9.6, hematocrit 30.4, platelets 196,000. On admission, hemoglobin was 4.8. After blood transfusion, it went to 8.4, dropped again to 6.1. After retransfusion, hemoglobin is 9.9, looks like stable; at 9.6. Sodium is 145, potassium 4, BUN 13 and creatinine 1. Hemoglobin A1c is 6.6. ASSESSMENT AND PLAN: Mr. Franco Olson is an 82-year-old male with anemia status post 5 units of packed red blood cells, hyperchloremia, diabetes mellitus, hypocalcemia; iron deficiency, getting iron infusion; stool occult positive; seen by Dr. Katheryn Huertas, radiation oncologist. Patient has bleeding rectal cancer, adenocarcinoma. Refusing surgery. Had blood transfusion. Spoke to him through his son, Mr. Bojorquez, he translated for me. Actually, sometimes patient understands Latvian also, but son translated for me in Gabonese. Patient is saying only one thing that he does not want surgery. Dr. Huertas tried to discuss with him alternate treatments, and she even tried to contact , but actually he did not listen to , sometimes we have to contact his daughter, Franki. Actually, patient has 12 children and nobody has power of assistant county attorney. I am talking to them one by one. History of duodenal ulcers, hypertension. Time to stabilize the patient. May be I will consult her to see patient's competency. We will do CAT scan of the chest to see if any metastases to the lungs. Patient is complex with comprehensive medically necessary and appropriate visit carried out in dependence of the son, Reno. Gastrointestinal and deep venous thrombosis prophylaxes. Continue present treatment. We will follow up. Danielle Saavedra MD
[2017-12-07] MEDS: Sucralfate 1 gm/10 ml Oral Susp UD PO SCH ×2 (05:36→18:46)
[2017-12-07] MEDS: Pantoprazole 40mg/100mL NS 40 MG/100 ML BAG IVPB SCH (05:42)
[2017-12-07 06:40] LABS: HEMOGLOBIN 10.1 g/dL (14.0-18.0); MEAN CELL VOLUME 81.3 fl (80.0-105.0); MEAN CORPUSCULAR HEMOGLOBIN 25.5 pg (25.0-35.0); MEAN CORPUSCULAR HGB CONC 31.4 g/dl (31.0-37.0); PLATELET COUNT 221 10^3/uL (120.0-450.0); RBC 3.96 10^6/uL (3.5-6.1); RED CELL DISTRIBUTION WIDTH 17.5 % (11.5-14.5); WHITE BLOOD COUNT 5.7 10^3/ul (4.5-11.0)
[2017-12-07 06:52] LABS: ALB/GLOB RATIO 1.3 (1.1-1.8); ALBUMIN 3.5 g/dL (3.0-4.8); ALT/SGPT 26 U/L (7-56); AST/SGOT 17 U/L (17-59); BLOOD UREA NITROGEN 12 mg/dL (7-21); GFR AFRICAN-AMERICAN > 60; GFR NON-AFRICAN AMERICAN > 60
--- NOTE | 2017-12-07 09:01 | CT ---
PROCEDURE: CT Chest without contrast HISTORY: r/o mets COMPARISON: None. TECHNIQUE: Contiguous axial images were obtained through the chest without intravenous contrast enhancement. Sagittal and coronal reconstructions were performed. Radiation dose (DLP): 514.22 mGy-cm. This CT exam was performed using one or more of the following dose reduction techniques: Automated exposure control, adjustment of the mA and/or kV according to patient size, and/or use of iterative reconstruction technique. FINDINGS: LUNGS: Clear lungs. Visualized airway clear. MEDIASTINUM: Unremarkable thoracic aorta. No aneurysm. Normal sized heart. Main pulmonary artery unremarkable. No vascular congestion. No lymphadenopathy. Enlarged left lobe of thyroid extends into superior mediastinum. Markedly heterogeneous gland. Likely multinodular goiter. Correlate with thyroid ultrasound. . PLEURA: No pleural fluid. No pneumothorax. BONES: Severe degenerative disc disease T11-12. No acute fracture. UPPER ABDOMEN: Incidental 7 mm rounded low-attenuation lesion in the right lobe of the liver, laterally. OTHER FINDINGS: Bilateral gynecomastia IMPRESSION: No evidence of metastatic disease. Multinodular goiter. Correlate with thyroid ultrasound examination. Bilateral gynecomastia. Incidental 7 mm nonspecific low attenuation lesion in the right lobe of the liver.
--- NOTE | 2017-12-07 10:27 | CP.PCM.PN ---
Subjective - Date & Time of Evaluation Date of Evaluation: 12/07/17 Time of Evaluation: 10:00 - Subjective Subjective: We reached out to the family again this morning. We were able to speak with his daughter who states that her dad is stubborn, and is currently refusing everything. He keeps telling her that he wants to go home. She says that she will have a family meeting with him once he is home to see if they can convince him about palliative radiation. They will let us know of his decision once they have the family meeting. We explained the palliative radiation to her including risks and benefits. Objective - Vital Signs/Intake and Output Vital Signs (last 24 hours): Temp Pulse Resp BP Pulse Ox 97.7 F 60 20 128/69 98 12/07/17 08:41 12/07/17 08:41 12/07/17 08:41 12/07/17 08:41 12/07/17 08:41 Intake and Output: 12/07/17 12/07/17 06:59 18:59 Intake Total 600 Output Total 425 Balance 175 - Medications Medications: Current Medications Acetaminophen (Tylenol 325mg Tab) 650 mg PO Q4H PRN PRN Reason: Pain, Mild (1-3) Last Admin: 12/06/17 19:49 Dose: 650 mg Cyanocobalamin (Vitamin B12 1000 Mcg/Ml Inj) 1,000 mcg IM DAILY [facility] Stop: 12/07/17 11:31 Last Admin: 12/06/17 10:21 Dose: 1,000 mcg Pantoprazole Sodium (Protonix 40mg Ivpb) 40 mg in 100 mls @ 20 mls/hr IVPB .Q5H [facility] Last Admin: 12/07/17 05:42 Dose: 20 mls/hr Iron Sucrose 100 mg/ Sodium (Chloride) 105 mls @ 210 mls/hr IVPB DAILY [facility] Stop: 12/07/17 12:03 Last Admin: 12/06/17 10:20 Dose: 210 mls/hr Polyethylene Glycol (Miralax) 17 gm PO BID [facility] Last Admin: 12/06/17 18:10 Dose: 17 gm Sucralfate (Carafate Oral Susp) 1 gm PO 0600,1600 [facility] Last Admin: 12/07/17 05:36 Dose: 1 gm - Labs Labs: 12/07/17 05:45 12/07/17 05:45 PT 12.2 SECONDS (9.4-12.5) 12/03/17 00:40 INR 1.07 (0.93-1.08) 12/03/17 00:40 APTT 26.1 Seconds (25.1-36.5) 12/03/17 00:40
[2017-12-07] MEDS: POLYETHYLENE GLYCOL 3350 17 GM/Dose PACKET PO SCH ×2 (11:07→18:46)
--- NOTE | 2017-12-07 16:15 | CP.PCM.PN ---
<Simona Aj - Last Filed: 12/07/17 16:14> Subjective - Date & Time of Evaluation Date of Evaluation: 12/07/17 Time of Evaluation: 10:50 - Subjective Subjective: Seen and examined at the bedside earlier today, chart reviewed. Patient denies nausea, vomiting, or abdominal pain. No reports of overt GI bleed. Tolerating oral intake. Objective - Vital Signs/Intake and Output Vital Signs (last 24 hours): Temp Pulse Resp BP Pulse Ox 97.7 F 60 20 128/69 98 12/07/17 08:41 12/07/17 08:41 12/07/17 08:41 12/07/17 08:41 12/07/17 08:41 Intake and Output: 12/07/17 12/07/17 06:59 18:59 Intake Total 600 Output Total 425 Balance 175 - Medications Medications: Current Medications Acetaminophen (Tylenol 325mg Tab) 650 mg PO Q4H PRN PRN Reason: Pain, Mild (1-3) Last Admin: 12/06/17 19:49 Dose: 650 mg Pantoprazole Sodium (Protonix Ec Tab) 40 mg PO 0600,1600 [facility] Polyethylene Glycol (Miralax) 17 gm PO BID [facility] Last Admin: 12/07/17 11:07 Dose: 17 gm Sucralfate (Carafate Oral Susp) 1 gm PO 0600,1600 [facility] Last Admin: 12/07/17 05:36 Dose: 1 gm - Labs Labs: 12/07/17 05:45 12/07/17 05:45 PT 12.2 SECONDS (9.4-12.5) 12/03/17 00:40 INR 1.07 (0.93-1.08) 12/03/17 00:40 APTT 26.1 Seconds (25.1-36.5) 12/03/17 00:40 - Constitutional Appears: No Acute Distress - Eye Exam Eye Exam: Normal appearance. absent: Scleral icterus - ENT Exam ENT Exam: Mucous Membranes Moist - Neck Exam Neck Exam: Normal Inspection - Respiratory Exam Respiratory Exam: NORMAL BREATHING PATTERN. absent: Respiratory Distress - Cardiovascular Exam Cardiovascular Exam: +S1, +S2 - GI/Abdominal Exam GI & Abdominal Exam: Soft, Normal Bowel Sounds. absent: Guarding, Tenderness, Rebound - Extremities Exam Extremities Exam: absent: Calf Tenderness - Neurological Exam Neurological Exam: Alert, Awake, Oriented x3 - Skin Skin Exam: Dry, Warm Assessment and Plan - Assessment and Plan (Free Text) Assessment: Assessment: GI bleed with anemia status post endoscopy found to have clean-based duodenal ulcer Anemia secondary to GI bleed, status post blood transfusion Rectal cancer Liver lesions Plan: Continue to monitor H&H and for overt GI bleed Diet as tolerated Continue PPI twice a day and Carafate Monitor H&H and for overt GI bleed Patient refused surgery but agree for radiation plans as per oncology and Radiation oncologist. Seen and discussed with Dr. Jacobo. <Cl Jacobo V - Last Filed: 12/07/17 22:03> Objective - Vital Signs/Intake and Output Vital Signs (last 24 hours): Temp Pulse Resp BP Pulse Ox 98.6 F 60 18 130/72 98 12/07/17 18:00 12/07/17 18:00 12/07/17 18:00 12/07/17 18:00 12/07/17 18:00 - Medications Medications: Current Medications Acetaminophen (Tylenol 325mg Tab) 650 mg PO Q4H PRN PRN Reason: Pain, Mild (1-3) Last Admin: 12/06/17 19:49 Dose: 650 mg Pantoprazole Sodium (Protonix Ec Tab) 40 mg PO 0600,1600 [facility] Last Admin: 12/07/17 18:46 Dose: 40 mg Polyethylene Glycol (Miralax) 17 gm PO BID [facility] Last Admin: 12/07/17 18:46 Dose: 17 gm Sucralfate (Carafate Oral Susp) 1 gm PO 0600,1600 [facility] Last Admin: 12/07/17 18:46 Dose: 1 gm - Labs Labs: 12/07/17 05:45 12/07/17 05:45 PT 12.2 SECONDS (9.4-12.5) 12/03/17 00:40 INR 1.07 (0.93-1.08) 12/03/17 00:40 APTT 26.1 Seconds (25.1-36.5) 12/03/17 00:40 Attending/Attestation - Attestation I have personally seen and examined this patient.: Yes I have fully participated in the care of the patient.: Yes I have reviewed all pertinent clinical information, including history, physical exam and plan: Yes Notes (Text): This is an addendum to GI progress report dictated by Simona Aj APN.The patient was seen and examined earlier. Medical records, lab studies, imagings were reviewed. Last 24 hours events reviewed. Agreed with the above treatment plan as outlined in Simona Aj APN's notes with the addition of the following patient is comfortable No active bleeding abdomen soft no tenderness Refused surgery Agreeable for RT for rectal cancer Healing small duodenal ulcer Continue PPI Follow-up hemoglobin and he 12/07/17 22:01
--- NOTE | 2017-12-07 18:31 | CP.PCM.PN ---
Subjective - Date & Time of Evaluation Date of Evaluation: 12/07/17 Time of Evaluation: 12:00 - Subjective Subjective: Heme Onc Progress note for Dr Alan Patient was seen and examined at bedside. No acute complaints at this time. Patient is on 1:1 observation. Patient is expressing his desire to go home and come pack so that he may "pay bills". Patient denied fever, chills, shortness of breath, chest pains, abdominal pains, nausea, vomiting, diarrhea, constipation. patient stated he had a bm this morning. Objective - Vital Signs/Intake and Output Vital Signs (last 24 hours): Temp Pulse Resp BP Pulse Ox 97.7 F 60 20 128/69 98 12/07/17 08:41 12/07/17 08:41 12/07/17 08:41 12/07/17 08:41 12/07/17 08:41 Intake and Output: 12/07/17 12/07/17 06:59 18:59 Intake Total 600 Output Total 425 Balance 175 - Medications Medications: Current Medications Acetaminophen (Tylenol 325mg Tab) 650 mg PO Q4H PRN PRN Reason: Pain, Mild (1-3) Last Admin: 12/06/17 19:49 Dose: 650 mg Pantoprazole Sodium (Protonix Ec Tab) 40 mg PO 0600,1600 [facility] Polyethylene Glycol (Miralax) 17 gm PO BID [facility] Last Admin: 12/07/17 11:07 Dose: 17 gm Sucralfate (Carafate Oral Susp) 1 gm PO 0600,1600 [facility] Last Admin: 12/07/17 05:36 Dose: 1 gm - Labs Labs: 12/07/17 05:45 12/07/17 05:45 PT 12.2 SECONDS (9.4-12.5) 12/03/17 00:40 INR 1.07 (0.93-1.08) 12/03/17 00:40 APTT 26.1 Seconds (25.1-36.5) 12/03/17 00:40 - Constitutional Appears: No Acute Distress - Head Exam Head Exam: ATRAUMATIC, NORMAL INSPECTION, NORMOCEPHALIC - Eye Exam Eye Exam: EOMI, Normal appearance, PERRL Pupil Exam: NORMAL ACCOMODATION, PERRL - ENT Exam ENT Exam: Mucous Membranes Moist, Normal Exam - Respiratory Exam Respiratory Exam: Clear to Ausculation Bilateral, NORMAL BREATHING PATTERN - Cardiovascular Exam Cardiovascular Exam: REGULAR RHYTHM, +S1, +S2. absent: Murmur - GI/Abdominal Exam GI & Abdominal Exam: Soft, Normal Bowel Sounds. absent: Tenderness - Neurological Exam Neurological Exam: Alert, Awake, CN II-XII Intact, Normal Gait, Oriented x3 - Psychiatric Exam Psychiatric exam: Normal Affect, Normal Mood - Skin Skin Exam: Dry, Intact, Normal Color, Warm Assessment and Plan - Assessment and Plan (Free Text) Assessment: 82 M with a PMHx of rectal cancer admitted with syncopal episode and found to have a GI bleed. Patient has been adamant regarding refusal of surgery. During his stay, he has been transfused 5u pRBCs, most recent Hgb of 10.1 and stable. No overt signs of bleeding. GI following, s/p EGD found to have clean based duodenal ulcer. Continue to monitor H&H, PPI BID and Carafate. Radiation oncology Dr. Huertas consulted regarding recommended radiation therapy. CT of the abdomen and pelvis demonstrated lesion along the rectal wall. Family meeting with patient as per Dr. Huertas and Dr. Alan to further discuss and consider treatment plan.
[2017-12-07] MEDS: Pantoprazole 40 mg EC Tab PO SCH (18:46)
--- NOTE | 2017-12-08 03:57 | PN ---
DATE: 12/07/2017 SUBJECTIVE: The patient is an 82-year-old male. The patient is seen and examined on the bedside. is sitting on the bedside also. Looking comfortable. Restless to go home. No nausea, vomiting, diarrhea. No hematuria or hematochezia. No swelling of the leg. No chest pain. No palpitation. No abdominal pain. According to the patient, he is sleeping very well, but he does not want to go for surgery. He does not want to go any type of treatment. He just wants to go home. I called the Psych consult to see the competency of the patient. He feels competent enough to make a decision, oriented x3. Then, we will discharge him home. Otherwise, we will talk to the family. PHYSICAL EXAMINATION: VITAL SIGNS: Temperature 97.7, pulse 60, respiratory rate 20, blood pressure 128/69, pulse oximetry 98. HEENT: Head normocephalic, atraumatic. Eyes PERRLA. Extraocular muscles intact. Conjunctivae clear. Nose patent. Mucous membrane moist. NECK: Supple. No carotid bruit. No JVD or thyromegaly. CHEST: Bilaterally symmetrical. HEART: S1 and S2 positive. LUNGS: Clear to auscultation. ABDOMEN: Soft. Bowel sounds present. No organomegaly. EXTREMITIES: No edema. No cyanosis. NEUROLOGICAL: The patient is awake and alert. Moving all 4 extremities. No focal deficits. MEDICATIONS: Acetaminophen, cyanocobalamin, Protonix, iron, MiraLax, sucralfate. LABORATORY DATA: White blood cells 5.7, hemoglobin 10.1, hematocrit 32.2, platelets 221. Sodium 145, potassium 4, BUN 12, creatinine 1, glucose 82. ASSESSMENT AND PLAN: Mr. Franco Olson is an 82-year-old male with anemia, hyperchloremia, history of adenocarcinoma of the rectum with metastasis. Refusing surgery. Radiation Oncology consult called. Dr. Katheryn Huertas talked to the family. She spoke to the patient's daughter. According to daughter, father is very stubborn and is currently refusing everything including surgery, radiation and chemotherapy and he just wanted to go home. According to daughter, once he will go home, they will do family meeting and they will try to convince the patient and after that, she will call Dr. Huertas back. The patient has 12 children. It is very harder to collaborate everybody's opinion. CAT scan of the chest done. According to Dr. Romain Adams, no evidence of metastatic disease; multinodular goiter, correlation with thyroid ultrasound is required, bilateral gynecomastia, incidental 7 mm nonspecific low-attenuation lesion in the right lobe of the liver. History of severe anemia, status post at least 5 units of packed RBC. Getting iron infusion. History of hypercholesterolemia, diabetes mellitus, hypocalcemia, iron deficiency, got iron infusion. The patient looks like he has bleeding rectal cancer, adenocarcinoma. Again, refusing surgery. Waiting for Dr. Irena Tran's input. Repeat labs. We will follow up. Danielle Saavedra MD
[2017-12-08] MEDS: Sucralfate 1 gm/10 ml Oral Susp UD PO SCH ×2 (05:24→17:02)
[2017-12-08] MEDS: Pantoprazole 40 mg EC Tab PO SCH ×2 (05:24→17:02)
[2017-12-08 08:32] LABS: HEMOGLOBIN 10.6 g/dL (14.0-18.0); MEAN CELL VOLUME 82.1 fl (80.0-105.0); MEAN CORPUSCULAR HEMOGLOBIN 25.4 pg (25.0-35.0); MEAN CORPUSCULAR HGB CONC 30.9 g/dl (31.0-37.0); PLATELET COUNT 210 10^3/uL (120.0-450.0); RBC 4.18 10^6/uL (3.5-6.1); RED CELL DISTRIBUTION WIDTH 17.7 % (11.5-14.5); WHITE BLOOD COUNT 5.3 10^3/ul (4.5-11.0)
[2017-12-08 08:41] LABS: BLOOD UREA NITROGEN 10 mg/dL (7-21); CALCIUM 8.8 mg/dL (8.4-10.5); GFR AFRICAN-AMERICAN > 60; GFR NON-AFRICAN AMERICAN > 60
[2017-12-08] MEDS: POLYETHYLENE GLYCOL 3350 17 GM/Dose PACKET PO SCH ×2 (09:11→17:02)
--- NOTE | 2017-12-08 11:58 | US ---
HISTORY: ab, cat scane TECHNIQUE: Sonographic evaluation of the thyroid gland. COMPARISON: CT chest without contrast report noted 12/07/2017 FINDINGS: RIGHT LOBE: Measures 6.2 x 3.4 x 2.4 cm. Heterogeneous echotexture -with mild increased the flow Nodules: Hypoechoic solid-appearing nodule well-circumscribed measuring 3.3 x 3.6 x 2.9 cm consider fine-needle aspiration based on size. Elsewhere there are sub cm cyst present 1 the upper pole approximately 5 mm another in the mid to lower pole approximately 5 mm LEFT LOBE: Measures 6.2 x 3.3 x 2.5 cm. Heterogeneous echo texture with mild increased flow Nodules: In the midpole there are 2 complex cyst 1 measures 10 x 6 x 9 mm another measures 9 x 5 x 9 mm. In the mid to lower pole posteriorly there is a hyperechoic focus measuring 1.5 x 1.3 x 1.1 cm. A somewhat exophytic hyperdense nodules 1 consideration. Conceivably a parathyroid nodule is another. Correlation with labs is suggested. Continued surveillance recommended here -recommend follow-up thyroid ultrasound in 6 months to reassess. ISTHMUS: Measures 0.22 cm. Minimally heterogeneous -normal flow Nodules: None OTHER FINDINGS: None . IMPRESSION: Findings compatible with a multinodular goiter-as referenced above. Consider fine-needle aspiration the dominant solid-appearing nodule near the right lower thyroid pole. Of additional follow-up imaging as referenced above elsewhere also recommended
--- NOTE | 2017-12-08 12:44 | CP.PCM.PN ---
<Simona Aj - Last Filed: 12/08/17 12:44> Subjective - Date & Time of Evaluation Date of Evaluation: 12/08/17 Time of Evaluation: 10:30 - Subjective Subjective: Seen and examined at the bedside earlier today, chart reviewed. No acute overnight events reported. Patient tolerating oral intake, denies nausea, vomiting, abdominal pain or overt GI bleed. Having formed BM as per patient, denies diarrhea. Objective - Vital Signs/Intake and Output Vital Signs (last 24 hours): Temp Pulse Resp BP Pulse Ox 98.3 F 54 L 18 136/86 100 12/08/17 06:00 12/08/17 06:00 12/08/17 06:00 12/08/17 06:00 12/08/17 06:00 Intake and Output: 12/08/17 12/08/17 06:59 18:59 Intake Total 780 Output Total 400 Balance 380 - Medications Medications: Current Medications Acetaminophen (Tylenol 325mg Tab) 650 mg PO Q4H PRN PRN Reason: Pain, Mild (1-3) Last Admin: 12/06/17 19:49 Dose: 650 mg Pantoprazole Sodium (Protonix Ec Tab) 40 mg PO 0600,1600 [facility] Last Admin: 12/08/17 05:24 Dose: 40 mg Polyethylene Glycol (Miralax) 17 gm PO BID [facility] Last Admin: 12/08/17 09:11 Dose: Not Given Sucralfate (Carafate Oral Susp) 1 gm PO 0600,1600 [facility] Last Admin: 12/08/17 05:24 Dose: 1 gm - Labs Labs: 12/08/17 08:20 12/08/17 08:20 PT 12.2 SECONDS (9.4-12.5) 12/03/17 00:40 INR 1.07 (0.93-1.08) 12/03/17 00:40 APTT 26.1 Seconds (25.1-36.5) 12/03/17 00:40 - Constitutional Appears: No Acute Distress - Head Exam Head Exam: NORMOCEPHALIC - Eye Exam Eye Exam: Normal appearance. absent: Scleral icterus - ENT Exam ENT Exam: Mucous Membranes Moist - Neck Exam Neck Exam: Normal Inspection - Respiratory Exam Respiratory Exam: NORMAL BREATHING PATTERN. absent: Respiratory Distress - Cardiovascular Exam Cardiovascular Exam: +S1, +S2 - GI/Abdominal Exam GI & Abdominal Exam: Soft, Normal Bowel Sounds. absent: Guarding, Tenderness, Rebound - Extremities Exam Extremities Exam: absent: Calf Tenderness, Pedal Edema - Neurological Exam Neurological Exam: Alert, Awake, Oriented x3 Assessment and Plan - Assessment and Plan (Free Text) Assessment: Assessment: GI bleed with anemia status post endoscopy found to have clean-based duodenal ulcer Anemia secondary to GI bleed, status post blood transfusion Rectal cancer Liver lesions Plan: Continue to monitor H&H and for overt GI bleed Diet as tolerated Continue PPI twice a day and Carafate Monitor H&H and for overt GI bleed Patient refused surgery but agree for radiation, plans as per oncology and Radiation oncologist. Seen and discussed with Dr. Jacobo. <Cl Jacobo V - Last Filed: 12/08/17 23:23> Objective - Vital Signs/Intake and Output Vital Signs (last 24 hours): Temp Pulse Resp BP Pulse Ox 98.6 F 78 20 122/78 97 12/08/17 17:57 12/08/17 18:00 12/08/17 17:57 12/08/17 17:57 12/08/17 17:57 Intake and Output: 12/08/17 12/09/17 18:59 06:59 Intake Total 800 840 Output Total 750 Balance 800 90 - Medications Medications: Current Medications Acetaminophen (Tylenol 325mg Tab) 650 mg PO Q4H PRN PRN Reason: Pain, Mild (1-3) Last Admin: 12/06/17 19:49 Dose: 650 mg Pantoprazole Sodium (Protonix Ec Tab) 40 mg PO 0600,1600 [facility] Last Admin: 12/08/17 17:02 Dose: 40 mg Polyethylene Glycol (Miralax) 17 gm PO BID [facility] Last Admin: 12/08/17 17:02 Dose: 17 gm Sucralfate (Carafate Oral Susp) 1 gm PO 0600,1600 [facility] Last Admin: 12/08/17 17:02 Dose: 1 gm - Labs Labs: 12/08/17 08:20 12/08/17 08:20 PT 12.2 SECONDS (9.4-12.5) 12/03/17 00:40 INR 1.07 (0.93-1.08) 12/03/17 00:40 APTT 26.1 Seconds (25.1-36.5) 12/03/17 00:40 Attending/Attestation - Attestation I have personally seen and examined this patient.: Yes I have fully participated in the care of the patient.: Yes I have reviewed all pertinent clinical information, including history, physical exam and plan: Yes Notes (Text): This is an addendum to GI progress report dictated by Simona Aj APN.The patient was seen and examined earlier. Medical records, lab studies, imagings were reviewed. Last 24 hours events reviewed. Agreed with the above treatment plan as outlined in Simona Aj APN's notes the with the addition of the following 12/08/17 23:23
--- NOTE | 2017-12-08 17:03 | CON ---
DATE: 12/08/2017 HISTORY OF PRESENT ILLNESS: Shortly, the patient is 82-year-old male who was admitted on the medical site, status post near syncopal episode. The patient has history of rectal mass adenocarcinoma. The patient had multiple medical issues in the past; low hemoglobin level, which was 6.1 at the time of admission. A Psych consult was called for evaluation of capacity to make decisions about possible surgical intervention in regards of his adenocarcinoma. The patient is Creole speaking and this contract writer used translation in demand service, Nadira Rincon. The patient was interviewed with the ophthalmology surgical technician, Dr. Cuevas. The patient presented to be alert. The patient is hard of hearing as well as some visual impairment. The patient was aware that he is in the hospital, basic information about the reason of him being in the hospital. The patient was kept repeating low blood, low blood. The patient has basic understanding of his diagnosis. The patient knows that he has rectal mass and this is not new diagnosis. The patient was able to indicate preferences. The patient made it clear that he does not want to have any surgical intervention at this point, but the patient was willing to get treatment with the pills. The patient was kept repeating that this is his body and he is the one who is making decisions at this point. The patient was somewhat difficult in regards of the processing information about the options what he has, but the patient made it clear that he wants to have chemotherapy or radiation effect would be recommended. The patient denied being depressed. The patient denied thoughts of harming himself or others. The patient denied hearing voices, denied seeing things. As per nursing staff, the patient has sundowning syndrome. At times, he is confused and disoriented during the evening time. This contract writer reviewed vital signs. Temperature 98.3, pulse is 54, blood pressure 136/86, respirations 18, oxygen saturation is low 100s. Medications reviewed. Tylenol, Protonix, MiraLax and sucralfate. Labs reviewed. Hemoglobin and hematocrit 10.6 and 34.3 respectively. Coagulation reviewed. Chemistry reviewed, chloride 109. The rest within normal limits. Urinalysis within normal limits. FOBT positive for blood. The patient also had chest CT scan. No evidence of metastatic disease. Multinodular goiter correlated with thyroid ultrasound examination. Bilateral gynecomastia. Incidental 7 mm nonspecific low-attenuation lesion in the right lobe of the liver. Liver CT scan also was done, which showed that 12.4 low attenuation of right lobe of liver and it could be small cyst or hemangioma. Probable small bilateral renal cyst as above. Please see report for more detailed information. Endoscopy also done. MENTAL STATUS EXAMINATION: The patient presented to be alert. Not engaged into the conversation. The patient was kept repeating no surgery and "it is my body." Mood described as okay. Affect was constricted, irritable. Thought process seems to be concrete. Thought content, the patient denied visual, auditory or tactile hallucinations. Denied paranoid ideations. The patient denied thoughts of harming himself or others, but delirium cannot be excluded, especially at the evening time as per nursing staff. The patient was having some visual hallucinations, but no agitation, no aggression. Insight seems to be basics. impulses are well controlled. In regards of the capacity to make decisions about surgery, the patient made it clear that he does not want to have any surgical intervention at this point. The patient was able to indicate his preferences. The patient was able to indicate that he would consider to have chemotherapy and medication management as well as radiation. The patient was able to have reasoning ability. The patient has just basic understanding what are the potential benefits and risks and consequences of being without surgery. At the same time, evaluation was complicated because of the language barrier, even though that this contract writer and surgical resided used translation system. The patient is hard of hearing and has low education level. This contract writer asked if the patient has any family member who can help him to make decision, the patient said that he does not want anybody to be involved and this is his body and he is making decisions for himself. At the same time, Hematology and Oncology need to discuss what options are. Family needs to be involved if the patient is willing to. Because this contract writer was not sure what options are in regards of chemotherapy and radiation therapy, case will be discussed with Dr. Saavedra in details. In regards of the surgical intervention, the patient has capacity to decline that option, but in regards of chemotherapy as well as radiation therapy, options need to discuss with the patient. Thank you very much for letting me participate in the care of your patient. Management of this case took more than 45 minutes of this contract writer's time. Thank you very much. Should you have any questions, give me a call back. Irena Tran MD
--- NOTE | 2017-12-08 17:26 | CP.PCM.PN ---
Subjective - Date & Time of Evaluation Date of Evaluation: 12/08/17 Time of Evaluation: 09:30 - Subjective Subjective: Patient was seen and examined this AM. Surgery team was called to accompany Dr. Osborn, Psychiatrist, in her attempt to engage the patient in constructive conversation with the patient regarding his diagnosis and treatment options, and to assess competency level. Spoke to patient at length with Afghan-Creole industrial psychology teacher via official hospital interpretation device, attempting to discuss his rectal cancer and the risk and benefits of conservative management vs. chemotherapy, radiation, or surgery. Patient was difficult to converse with despite multiple attempts to describe his current situation and engage a dialogue. Patient repeatedly insisted he did not want surgery because it is his life, he is elderly, and he does not want to undergo an operation. Patient refused to discuss it further and stated he wanted to go home. Furthermore, patient refused offer of calling his daughter to participate in this conversation. After 15-20 minutes of repeated attempts, we left the patient's room. Objective - Vital Signs/Intake and Output Vital Signs (last 24 hours): Temp Pulse Resp BP Pulse Ox 98.3 F 60 18 136/86 100 12/08/17 06:00 12/08/17 14:00 12/08/17 06:00 12/08/17 06:00 12/08/17 06:00 Intake and Output: 12/08/17 12/08/17 06:59 18:59 Intake Total 780 800 Output Total 400 Balance 380 800 - Medications Medications: Current Medications Acetaminophen (Tylenol 325mg Tab) 650 mg PO Q4H PRN PRN Reason: Pain, Mild (1-3) Last Admin: 12/06/17 19:49 Dose: 650 mg Pantoprazole Sodium (Protonix Ec Tab) 40 mg PO 0600,1600 [facility] Last Admin: 12/08/17 17:02 Dose: 40 mg Polyethylene Glycol (Miralax) 17 gm PO BID [facility] Last Admin: 12/08/17 17:02 Dose: 17 gm Sucralfate (Carafate Oral Susp) 1 gm PO 0600,1600 [facility] Last Admin: 12/08/17 17:02 Dose: 1 gm - Labs Labs: 12/08/17 08:20 12/08/17 08:20 PT 12.2 SECONDS (9.4-12.5) 12/03/17 00:40 INR 1.07 (0.93-1.08) 12/03/17 00:40 APTT 26.1 Seconds (25.1-36.5) 12/03/17 00:40 - Constitutional Appears: Well, Non-toxic, No Acute Distress - Head Exam Head Exam: ATRAUMATIC, NORMOCEPHALIC - Eye Exam Eye Exam: Normal appearance. absent: Conjunctival injection, Scleral icterus - ENT Exam ENT Exam: Mucous Membranes Moist, Normal Oropharynx - Respiratory Exam Respiratory Exam: NORMAL BREATHING PATTERN. absent: Accessory Muscle Use, Respiratory Distress - GI/Abdominal Exam GI & Abdominal Exam: absent: Distended - Psychiatric Exam Psychiatric exam: Agitated, Normal Affect - Skin Skin Exam: Dry, Normal Color, Warm Assessment and Plan - Assessment and Plan (Free Text) Assessment: 82M with rectal adenocarcinoma and severe anemia, now improved Plan: No surgical intervention planned--patient refusing operation. Recommend radiation/chemotherapy, as he expressed possibly interest in this option. re-contact surgical team for any further questions or concerns
--- NOTE | 2017-12-09 01:58 | PN ---
DATE: 12/08/2017 This is [facility]'s hospital visit on the medical floor. For Dr. Alan, SUBJECTIVE: The patient is an 82-year-old male, legally blind, with severe symptomatic anemia requiring 5 units of packed red blood cells, now being maintained with IV iron. His hemoglobin at one point was 4.8. Today, it is 10.6. Patient also had an evaluation with Dr. Huertas, radiation oncologist, for his known rectal CA. He is otherwise resting comfortably. OBJECTIVE/PHYSICAL EXAMINATION: VITAL SIGNS: Temperature 98.6, pulse 78, respirations 20, blood pressure 122/78, pulse ox 97%. HEENT: Patient is legally blind. NECK: Supple. HEART: Regular rate. Occasional ectopic beat. LUNGS: Clear. ABDOMEN: Soft, nontender. EXTREMITIES: No edema. SKIN: Warm and dry. NEUROLOGIC: Awake and alert with blindness. LABORATORY DATA: Patient's labs were done. White blood cell count of 5.3, hemoglobin of 10.6, hematocrit of 34.3, platelet count of 210,000 with a chem metabolic panel completely within normal range. The patient did have a CT scan of his chest done yesterday, it was read as no evidence of metastatic disease, multinodular goiter, correlate with thyroid ultrasound examination, bilateral gynecomastia, incidental 7 mm nonspecific low-attenuation lesion in the right lobe of the liver. With this, patient had a thyroid ultrasound done yesterday. It was read as findings compatible with a multinodular goiter as referred above. Consider fine needle aspiration appearing nodule near the right lower thyroid pole. ASSESSMENT: The assessment for this patient is that of adenocarcinoma of the rectum; thyroid nodule; severe anemia, improved; iron-deficiency anemia, status post transfusion; duodenal ulcer; hypertension; questionable seizure disorder; blindness. PLAN: The plan for this patient after conversation with Dr. Alan is to continue his present medical regimen with consideration for radiation as per Dr. Huertas. We will monitor clinically and with labs. Prognosis for this patient is guarded. Arthur Aguila MD
[2017-12-09] MEDS: Sucralfate 1 gm/10 ml Oral Susp UD PO SCH ×2 (06:01→17:37)
[2017-12-09] MEDS: Pantoprazole 40 mg EC Tab PO SCH ×2 (06:01→17:37)
--- NOTE | 2017-12-09 07:01 | PN ---
DATE: 12/08/2017 SUBJECTIVE: The patient is seen and examined on the bedside, still on one-to-one. Getting episodes of anxiety. Otherwise, lying down comfortably, was talking to me very comfortably and that it is very clear that he do not want to go for surgery. He wants to go home, and then he wants to decide what direction he has to go. Sometimes he does not want to involve his family. He said he will make decision by himself; that is why, we called Psychiatry consult. Appreciated Dr. Tran's input. According to her, the patient is competent to make decision about surgery. No fever. No chills. No headache. No dizziness. PHYSICAL EXAMINATION: VITAL SIGNS: Temperature 98.3, pulse 50, respiratory rate 18, blood pressure 136/86, pulse oximetry 100. HEENT: Head normocephalic, atraumatic. Eyes PERRLA. Extraocular muscles intact. Conjunctivae clear. Nose patent. Mucous membrane moist. NECK: Supple. No carotid bruit. No JVD or thyromegaly. CHEST: Bilaterally symmetrical. HEART: S1 and S2 positive. LUNGS: Clear to auscultation. ABDOMEN: Soft. Bowel sounds positive. No organomegaly. EXTREMITIES: No edema. No cyanosis. NEUROLOGICAL: The patient is awake and alert. Moving all 4 extremities. No focal deficits. LABORATORY DATA: White blood cells 5.3, hemoglobin 10.6, hematocrit 34.3, platelets 210. Sodium 143, potassium 4, BUN 10, creatinine 0.9, glucose 84. MEDICATIONS: Tylenol, Protonix, MiraLax, Carafate. ASSESSMENT AND PLAN: Mr. Franco Olson is an 82-year-old male with anemia, hyperchloremia, adenocarcinoma and severe anemia, status post at least 5 units of packed RBC. No surgical intervention planned. The patient is refusing operation. Recommended radiation and chemotherapy as he expressed possibly interest in this option. Appreciated surgical team's input. Seen by Gastroenterology, Dr. Jacobo; Dr. Tran, psychiatrist. Even the patient was seen by radiation oncologist. Overnight, no event happened. The patient has still gastrointestinal bleeding, may be has bleeding adenocarcinoma. Has clean-based duodenal ulcers, anemia secondary to gastrointestinal bleeding, rectal cancer with liver lesions. Continue monitoring hemoglobin and hematocrit, and for overt gastrointestinal bleeding. Diet as tolerated. PPI twice a day. Continue present treatment. We will follow up. Out of bed. Physical therapy. Danielle Saavedra MD [facility]
[2017-12-09] MEDS: POLYETHYLENE GLYCOL 3350 17 GM/Dose PACKET PO SCH ×2 (10:36→17:37)
--- NOTE | 2017-12-09 15:51 | CP.PCM.PN ---
<Simona Aj - Last Filed: 12/09/17 15:51> Subjective - Date & Time of Evaluation Date of Evaluation: 12/09/17 Time of Evaluation: 10:50 - Subjective Subjective: Seen and examined at the bedside earlier today, chart review. Patient with no new complaints. On 1:1. No acute overnight events or reports of overt GI bleed. Patient denies N/V or abdominal pain. Objective - Vital Signs/Intake and Output Vital Signs (last 24 hours): Temp Pulse Resp BP Pulse Ox 98.6 F 60 20 122/78 97 12/08/17 17:57 12/09/17 06:00 12/08/17 17:57 12/08/17 17:57 12/08/17 17:57 Intake and Output: 12/09/17 12/09/17 06:59 18:59 Intake Total 840 Output Total 750 Balance 90 - Medications Medications: Current Medications Acetaminophen (Tylenol 325mg Tab) 650 mg PO Q4H PRN PRN Reason: Pain, Mild (1-3) Last Admin: 12/06/17 19:49 Dose: 650 mg Pantoprazole Sodium (Protonix Ec Tab) 40 mg PO 0600,1600 [facility] Last Admin: 12/09/17 06:01 Dose: Not Given Polyethylene Glycol (Miralax) 17 gm PO BID [facility] Last Admin: 12/09/17 10:36 Dose: Not Given Sucralfate (Carafate Oral Susp) 1 gm PO 0600,1600 [facility] Last Admin: 12/09/17 06:01 Dose: Not Given - Labs Labs: 12/08/17 08:20 12/08/17 08:20 PT 12.2 SECONDS (9.4-12.5) 12/03/17 00:40 INR 1.07 (0.93-1.08) 12/03/17 00:40 APTT 26.1 Seconds (25.1-36.5) 12/03/17 00:40 - Constitutional Appears: No Acute Distress - Eye Exam Eye Exam: Normal appearance. absent: Scleral icterus - ENT Exam ENT Exam: Mucous Membranes Moist - Respiratory Exam Respiratory Exam: NORMAL BREATHING PATTERN. absent: Respiratory Distress - Cardiovascular Exam Cardiovascular Exam: +S1, +S2 - GI/Abdominal Exam GI & Abdominal Exam: Soft, Normal Bowel Sounds. absent: Guarding, Tenderness, Rebound - Extremities Exam Extremities Exam: absent: Calf Tenderness, Pedal Edema - Neurological Exam Neurological Exam: Alert, Awake, Oriented x3 - Skin Skin Exam: Dry, Warm Assessment and Plan - Assessment and Plan (Free Text) Assessment: Assessment: GI bleed with anemia status post endoscopy found to have clean-based duodenal ulcer Anemia secondary to GI bleed, status post blood transfusion Rectal cancer Liver lesions Multinodular goiter, status post ultrasound of thyroid recommend FNA Plan: Continue to monitor H&H and for overt GI bleed Diet as tolerated Continue PPI twice a day and Carafate Monitor H&H and for overt GI bleed Radiation plans as per Radiation oncologist, patient refuse surgery Seen and discussed with Dr. Jacobo. <Cl Jacobo V - Last Filed: 12/09/17 22:23> Objective - Vital Signs/Intake and Output Vital Signs (last 24 hours): Temp Pulse Resp BP Pulse Ox 98.4 F 58 L 18 109/61 98 12/09/17 17:16 12/09/17 18:00 12/09/17 17:16 12/09/17 17:16 12/09/17 17:16 - Medications Medications: Current Medications Acetaminophen (Tylenol 325mg Tab) 650 mg PO Q4H PRN PRN Reason: Pain, Mild (1-3) Last Admin: 12/06/17 19:49 Dose: 650 mg Enoxaparin Sodium (Lovenox) 40 mg SC DAILY [facility] PRN Reason: Protocol Pantoprazole Sodium (Protonix Ec Tab) 40 mg PO 0600,1600 [facility] Last Admin: 12/09/17 17:37 Dose: 40 mg Polyethylene Glycol (Miralax) 17 gm PO BID [facility] Last Admin: 12/09/17 17:37 Dose: 17 gm Sucralfate (Carafate Oral Susp) 1 gm PO 0600,1600 [facility] Last Admin: 12/09/17 17:37 Dose: 1 gm - Labs Labs: 12/08/17 08:20 12/08/17 08:20 PT 12.2 SECONDS (9.4-12.5) 12/03/17 00:40 INR 1.07 (0.93-1.08) 12/03/17 00:40 APTT 26.1 Seconds (25.1-36.5) 12/03/17 00:40 Attending/Attestation - Attestation I have personally seen and examined this patient.: Yes I have fully participated in the care of the patient.: Yes I have reviewed all pertinent clinical information, including history, physical exam and plan: Yes Notes (Text): This is an addendum to GI progress report dictated by Simona Aj APN.The patient was seen and examined earlier. Medical records, lab studies, imagings were reviewed. Last 24 hours events reviewed. Agreed with the above treatment plan as outlined in Simona Aj APN's notes the with the addition of the following 12/09/17 22:23
[2017-12-09 17:17] VITALS: RESP 18
--- NOTE | 2017-12-09 20:17 | CP.PCM.PN ---
Subjective - Date & Time of Evaluation Date of Evaluation: 12/09/17 Time of Evaluation: 09:40 - Subjective Subjective: Heme Onc Progress note for Dr Alan Patient was seen and examined at bedside. No acute complaints at this time. Patient is on 1:1 observation. Patient denied fever, chills, shortness of breath , chest pains, abdominal pains, nausea, vomiting, diarrhea, constipation. Objective - Vital Signs/Intake and Output Vital Signs (last 24 hours): Temp Pulse Resp BP Pulse Ox 98.4 F 58 L 18 109/61 98 12/09/17 17:16 12/09/17 18:00 12/09/17 17:16 12/09/17 17:16 12/09/17 17:16 - Medications Medications: Current Medications Acetaminophen (Tylenol 325mg Tab) 650 mg PO Q4H PRN PRN Reason: Pain, Mild (1-3) Last Admin: 12/06/17 19:49 Dose: 650 mg Enoxaparin Sodium (Lovenox) 40 mg SC DAILY [facility] PRN Reason: Protocol Pantoprazole Sodium (Protonix Ec Tab) 40 mg PO 0600,1600 [facility] Last Admin: 12/09/17 17:37 Dose: 40 mg Polyethylene Glycol (Miralax) 17 gm PO BID [facility] Last Admin: 12/09/17 17:37 Dose: 17 gm Sucralfate (Carafate Oral Susp) 1 gm PO 0600,1600 [facility] Last Admin: 12/09/17 17:37 Dose: 1 gm - Labs Labs: 12/08/17 08:20 12/08/17 08:20 PT 12.2 SECONDS (9.4-12.5) 12/03/17 00:40 INR 1.07 (0.93-1.08) 12/03/17 00:40 APTT 26.1 Seconds (25.1-36.5) 12/03/17 00:40 - Constitutional Appears: No Acute Distress - Head Exam Head Exam: ATRAUMATIC, NORMAL INSPECTION, NORMOCEPHALIC - Eye Exam Eye Exam: EOMI, Normal appearance, PERRL Pupil Exam: NORMAL ACCOMODATION, PERRL - ENT Exam ENT Exam: Mucous Membranes Moist, Normal Exam - Respiratory Exam Respiratory Exam: Clear to Ausculation Bilateral, NORMAL BREATHING PATTERN - Cardiovascular Exam Cardiovascular Exam: REGULAR RHYTHM, +S1, +S2. absent: Murmur - GI/Abdominal Exam GI & Abdominal Exam: Soft, Normal Bowel Sounds. absent: Tenderness - Neurological Exam Neurological Exam: Alert, Awake, CN II-XII Intact, Normal Gait, Oriented x3 - Psychiatric Exam Psychiatric exam: Normal Affect, Normal Mood - Skin Skin Exam: Dry, Intact, Normal Color, Warm Assessment and Plan - Assessment and Plan (Free Text) Assessment: 82 M with a PMHx of rectal cancer admitted with syncopal episode and found to have a GI bleed. Patient has been adamant regarding refusal of surgery. During his stay, he has been transfused 5u pRBCs, most recent Hgb of 10.1 and stable. No overt signs of bleeding. GI following, s/p EGD found to have clean based duodenal ulcer. Continue to monitor H&H, PPI BID and Carafate. Radiation oncology Dr. Huertas consulted regarding recommended radiation therapy. CT of the abdomen and pelvis demonstrated lesion along the rectal wall. Family meeting with patient as per Dr. Huertas and Dr. Alan to further discuss and consider treatment plan.
--- NOTE | 2017-12-09 21:39 | PN ---
DATE: 12/09/2017 SUBJECTIVE: Patient is an 82-year-old male. Patient is seen and examined on the bedside. Patient has no complaints. Still on one-to-one. No acute event happened overnight. No overt GI bleeding. No abdominal pain. No fever. No chills. No nausea, vomiting, diarrhea. No hematuria or hematochezia. No swelling of the legs. PHYSICAL EXAMINATION: VITAL SIGNS: Temperature 98.6, pulse 60, respiratory rate 20, blood pressure 120/70, pulse oximetry 97. HEENT: Head: Normocephalic, atraumatic. Eyes: PERRLA. Extraocular muscles intact. Conjunctivae clear. Nose: Patent. Mucous membrane moist. NECK: Supple. No carotid bruit. No JVD or thyromegaly. CHEST: Bilaterally symmetrical. HEART: S1 and S2 positive. LUNGS: Clear to auscultation. ABDOMEN: Soft. Bowel sounds positive. No organomegaly. EXTREMITIES: No edema. No cyanosis. NEUROLOGICAL: Patient is awake and alert. Moving all 4 extremities. No focal deficits. MEDICATIONS: Pantoprazole, MiraLax, sucralfate. LABORATORY DATA: White blood cells 5.3, hemoglobin 10.6, hematocrit 34.3, platelets 210. Sodium 143, potassium 4, BUN 10, creatinine 0.9, glucose 84. ASSESSMENT AND PLAN: Mr. Franco Knutson, an 82-year-old male with anemia, hyperchloremia, came with gastrointestinal bleeding. Status post endoscopy, found to have clean-based duodenal ulcers. Anemia starting to get very well status post at least 5 units of packed red blood cells. Adenocarcinoma of the rectum with liver lesions. Multinodular goiter, status post ultrasound of the thyroid, recommended fine-needle aspiration, but patient do not agree for fine-needle aspiration. Patient is refusing any type of surgery. Continue monitoring hemoglobin and hematocrit for overt gastrointestinal bleeding. Diet as tolerated. Continue proton pump inhibitor twice a day and Carafate. Radiation plans as per radiation oncologist and the patient is refusing the surgery. Discussion done with the social services specialist, Sarah, and with family members. Waiting to hear from Dr. Katheryn Huertas about radiation plan. We will follow up. Danielle Saavedra MD [facility] # [id number]
[2017-12-10] MEDS: Pantoprazole 40 mg EC Tab PO SCH (05:22)
[2017-12-10] MEDS: Sucralfate 1 gm/10 ml Oral Susp UD PO SCH (05:22)
[2017-12-10 09:09] VITALS: BP 164/87; TEMP 98.2; O2SAT 94
[2017-12-10] MEDS: POLYETHYLENE GLYCOL 3350 17 GM/Dose PACKET PO SCH (09:42)
[2017-12-10] MEDS ORDERED: Enoxaparin 40 mg Syringe SC SCH (10:00)
--- NOTE | 2017-12-10 10:21 | CP.PCM.PN ---
Subjective - Date & Time of Evaluation Date of Evaluation: 12/10/17 Time of Evaluation: 09:30 - Subjective Subjective: PGY-[address] Jacobo's service Patient seen and examined at the bedside. No acuet events over nigth. chart review. Patient has no new complaints. He continues to be on 1:1. No reports of overt GI bleed. Patient denies N/V, abdominal pain, diarrhea, headache, dizziness, chets pain. He states that he would like to go home today. Objective - Vital Signs/Intake and Output Vital Signs (last 24 hours): Temp Pulse Resp BP Pulse Ox 98.2 F 58 L 18 164/87 H 94 L 12/10/17 06:00 12/10/17 06:00 12/10/17 06:00 12/10/17 06:00 12/10/17 06:00 Intake and Output: 12/10/17 12/10/17 06:59 18:59 Intake Total 600 Balance 600 - Medications Medications: Current Medications Acetaminophen (Tylenol 325mg Tab) 650 mg PO Q4H PRN PRN Reason: Pain, Mild (1-3) Last Admin: 12/06/17 19:49 Dose: 650 mg Enoxaparin Sodium (Lovenox) 40 mg SC DAILY [facility] PRN Reason: Protocol Last Admin: 12/10/17 09:41 Dose: 40 mg Pantoprazole Sodium (Protonix Ec Tab) 40 mg PO 0600,1600 [facility] Last Admin: 12/10/17 05:22 Dose: 40 mg Polyethylene Glycol (Miralax) 17 gm PO BID [facility] Last Admin: 12/10/17 09:42 Dose: 17 gm Sucralfate (Carafate Oral Susp) 1 gm PO 0600,1600 [facility] Last Admin: 12/10/17 05:22 Dose: 1 gm - Labs Labs: 12/08/17 08:20 12/08/17 08:20 PT 12.2 SECONDS (9.4-12.5) 12/03/17 00:40 INR 1.07 (0.93-1.08) 12/03/17 00:40 APTT 26.1 Seconds (25.1-36.5) 12/03/17 00:40 - Constitutional Appears: No Acute Distress - Head Exam Head Exam: ATRAUMATIC, NORMAL INSPECTION, NORMOCEPHALIC - Eye Exam Eye Exam: EOMI, Normal appearance - ENT Exam ENT Exam: Mucous Membranes Moist - Respiratory Exam Respiratory Exam: Clear to Ausculation Bilateral, NORMAL BREATHING PATTERN. absent: Decreased Breath Sounds, Rales, Rhonchi, Wheezes, Respiratory Distress - Cardiovascular Exam Cardiovascular Exam: REGULAR RHYTHM, +S1, +S2. absent: Bradycardia, Tachycardia , Murmur - GI/Abdominal Exam GI & Abdominal Exam: Soft, Normal Bowel Sounds. absent: Distended, Firm, Guarding, Rigid, Tenderness - Extremities Exam Extremities Exam: Normal Inspection - Neurological Exam Neurological Exam: Alert, Awake - Skin Skin Exam: Dry, Intact, Normal Color, Warm Assessment and Plan - Assessment and Plan (Free Text) Assessment: GI bleed with anemia status post endoscopy found to have clean-based duodenal ulcer Anemia secondary to GI bleed, status post blood transfusion Rectal cancer Liver lesions Multinodular goiter, status post ultrasound of thyroid recommend FNA Plan: Continue to monitor H&H and for overt GI bleed hgb stable Diet as tolerated, currently on altered GI diet Continue protonix 40mg twice a day and Carafate bid continue miralax for constipation Radiation oncologist consulted family meeting to discuses further treatment plans Patient reviewed and discussed with Dr. Jacobo.
[2017-12-10 15:23] VITALS: PULSE 68
--- NOTE | 2017-12-10 16:04 | CP.PCM.PN ---
Subjective - Date & Time of Evaluation Date of Evaluation: 12/10/17 Time of Evaluation: 11:00 - Subjective Subjective: Heme Onc Progress note for Dr Alan Patient was seen and examined at bedside. No acute complaints at this time. Patient is on 1:1 observation. Patient is for radiation therapy today, however patient refused. Patient denied fever, chills, shortness of breath, chest pains , abdominal pains, nausea, vomiting, diarrhea, constipation. Objective - Vital Signs/Intake and Output Vital Signs (last 24 hours): Temp Pulse Resp BP Pulse Ox 98.2 F 68 18 164/87 H 94 L 12/10/17 06:00 12/10/17 14:00 12/10/17 06:00 12/10/17 06:00 12/10/17 06:00 Intake and Output: 12/10/17 12/10/17 06:59 18:59 Intake Total 600 Balance 600 - Medications Medications: Current Medications Pantoprazole Sodium (Protonix Ec Tab) 40 mg PO 0600,1600 [facility] Last Admin: 12/10/17 05:22 Dose: 40 mg Polyethylene Glycol (Miralax) 17 gm PO BID [facility] Last Admin: 12/10/17 09:42 Dose: 17 gm Sucralfate (Carafate Oral Susp) 1 gm PO 0600,1600 [facility] Last Admin: 12/10/17 05:22 Dose: 1 gm - Labs Labs: 12/08/17 08:20 12/08/17 08:20 PT 12.2 SECONDS (9.4-12.5) 12/03/17 00:40 INR 1.07 (0.93-1.08) 12/03/17 00:40 APTT 26.1 Seconds (25.1-36.5) 12/03/17 00:40 - Constitutional Appears: No Acute Distress - Head Exam Head Exam: ATRAUMATIC, NORMAL INSPECTION, NORMOCEPHALIC - Eye Exam Eye Exam: EOMI, Normal appearance, PERRL - ENT Exam ENT Exam: Mucous Membranes Moist, Normal Exam - Respiratory Exam Respiratory Exam: Clear to Ausculation Bilateral, NORMAL BREATHING PATTERN - Cardiovascular Exam Cardiovascular Exam: REGULAR RHYTHM, +S1, +S2. absent: Murmur - GI/Abdominal Exam GI & Abdominal Exam: Soft, Normal Bowel Sounds. absent: Tenderness - Neurological Exam Neurological Exam: Alert, Awake, CN II-XII Intact, Normal Gait, Oriented x3 - Psychiatric Exam Psychiatric exam: Normal Affect, Normal Mood - Skin Skin Exam: Dry, Intact, Normal Color, Warm Assessment and Plan - Assessment and Plan (Free Text) Assessment: 82 M with a PMHx of rectal cancer admitted with syncopal episode and found to have a GI bleed. Patient has been adamant regarding refusal of surgery. During his stay, he has been transfused 5u pRBCs, most recent Hgb of 10.1 and stable. No overt signs of bleeding. GI following, s/p EGD found to have clean based duodenal ulcer. Continue to monitor H&H, PPI BID and Carafate. Radiation oncology Dr. Huertas consulted regarding recommended radiation therapy. CT of the abdomen and pelvis demonstrated lesion along the rectal wall. Patient initially agreed to have radiation therapy however upon arriving for first treatment, he refused. Will reach out to family to discuss.
== END 2017-12-10 16:24 | disposition home or self-care (01) | DRG 378 ==
LOC: ED 12:41 → ERH 15:15 → CCU 17:25 → 5RNO 12-03 17:55 → 3RSO 12-04 15:55
PROVIDERS: ADMIT Internal Medicine; ATTEND Internal Medicine
PROC: 30233N1 Transfusion of Nonautologous Red Blood Cells into Peripheral Vein, Percutaneous Approach (ICD-10-PCS; 2017-12-02)
PROC: 0DJ08ZZ Inspection of Upper Intestinal Tract, Via Natural or Artificial Opening Endoscopic (ICD-10-PCS; principal; 2017-12-03 13:30)
DX: K92.2 Gastrointestinal hemorrhage, unspecified (principal); C20 Malignant neoplasm of rectum; D62 Acute posthemorrhagic anemia; K26.9 Duodenal ulcer, unspecified as acute or chronic, without hemorrhage or perforation; K22.2 Esophageal obstruction; K29.70 Gastritis, unspecified, without bleeding; K44.9 Diaphragmatic hernia without obstruction or gangrene; E78.00 Pure hypercholesterolemia, unspecified; R55 Syncope and collapse; R56.9 Unspecified convulsions; I10 Essential (primary) hypertension; E87.8 Other disorders of electrolyte and fluid balance, not elsewhere classified; K64.8 Other hemorrhoids; K57.30 Diverticulosis of large intestine without perforation or abscess without bleeding; K21.9 Gastro-esophageal reflux disease without esophagitis; K76.9 Liver disease, unspecified; H40.9 Unspecified glaucoma; H54.7 Unspecified visual loss; H26.9 Unspecified cataract; D51.0 Vitamin B12 deficiency anemia due to intrinsic factor deficiency; K59.00 Constipation, unspecified; E83.51 Hypocalcemia; E04.2 Nontoxic multinodular goiter; N62 Hypertrophy of breast; M19.90 Unspecified osteoarthritis, unspecified site; N28.1 Cyst of kidney, acquired; Z91.19 Patient's noncompliance with other medical treatment and regimen